=== PATIENT | female | born 1965 | race Caucasian/White ===

== ENCOUNTER 2020-01-01 14:16 | Outpatient (CLI) | payer OTHER, SELFPAY ==
--- NOTE | 2020-01-01 14:25 | XR_ITS ---
WS: [id number] DEXA (DUAL ENERGY X-RAY ABSORPTIOMETRY) Bone mineral density was performed using a [employer] machine. HISTORY: ASYMPTOMATIC POSTMENOPAUSAL STATUS COMPARISON: None available. Lumbar spine BMD (L1-L4): 1.065 g/cm2 T score: -1.0 Z score: 0.1 Total hip BMD: Left: 0.868 g/cm2. T score: -1.1 Z score: -0.3 Right: 0.767 g/cm2. T score: -1.9 Z score: -1.1 10 year probability of a major osteoporotic fracture is 7%. XR/XR DEXA axial skeleton* [id number] IMPRESSION: OSTEOPENIA based upon the WHO classification for females.
== END 2020-01-01 14:17 | disposition home or self-care (01) ==
PROVIDERS: Family Provider Family Medicine; PCP Internal Medicine; Visit Provider Internal Medicine
DX: Z78.0 Asymptomatic menopausal state (principal)
CPT/HCPCS: 77080

== ENCOUNTER 2020-01-02 08:08 | Outpatient (CLI) | payer OTHER, SELFPAY ==
--- NOTE | 2020-01-02 08:12 | MM_ITS ---
WS: [id number] BILATERAL DIGITAL SCREENING MAMMOGRAPHY WITH CAD CLINICAL INFORMATION: SCREENING HISTORY: Screening mammogram. No current complaints. COMPARISON: TECHNIQUE: Bilateral CC and MLO views. FINDINGS: The breasts are composed of heterogeneous fibroglandular density tissue, which can limit the detectio n of small underlying mass lesions. A few stable punctate calcifications. No suspicious mass, asymmet ry, calcifications, or architectural distortion. No evidence of malignancy. MM/[place] [id number] IMPRESSION: BI-RADS: 2-Benign FOLLOW UP: 1 Year Follow-up Recommend return to annual screening mammography.
== END 2020-01-02 08:09 | disposition home or self-care (01) ==
LOC: RADSHAW 08:10
PROVIDERS: Family Provider Family Medicine; PCP Internal Medicine; Visit Provider Internal Medicine
DX: Z12.31 Encounter for screening mammogram for malignant neoplasm of breast (principal)
CPT/HCPCS: 77067

== ENCOUNTER → 2020-04-24 13:33 | Outpatient (BNVA) | payer OTHER, SELFPAY | PROVIDERS: Family Provider Family Medicine; PCP Internal Medicine; Visit Provider Internal Medicine | DX: M32.9 Systemic lupus erythematosus, unspecified (principal); Z79.899 Other long term (current) drug therapy | CPT/HCPCS: 36415; 80053; 81003; 85025; 85651; 86038; 86140; 86160; 99214 ==

== ENCOUNTER → 2020-10-14 09:37 | Outpatient (BNVA) | payer OTHER, SELFPAY | PROVIDERS: Family Provider Family Medicine; PCP Internal Medicine; Visit Provider Internal Medicine | DX: M32.9 Systemic lupus erythematosus, unspecified (principal); Z79.899 Other long term (current) drug therapy | CPT/HCPCS: 99213 ==

== ENCOUNTER 2020-11-01 01:01 | Inpatient (IN) | payer OTHER, SELFPAY ==
[2020-11-01] VITALS (40 sets, daily range): BP systolic 95–136; BP diastolic 55–90; PULSE 64–91; RESP 6–21; TEMP 36.3–36.8; O2SAT 91–98; BMI 21.7
--- NOTE | 2020-11-01 01:18 | XRR_ITS ---
PROCEDURE INFORMATION: Exam: XR Chest, 1 View Exam date and time: 11/01/2020 1:21 AM Age: 55 years old Clinical indication: Chest pain; Type not specified TECHNIQUE: Imaging protocol: XR of the chest Views: 1 view. COMPARISON: No relevant prior studies available. FINDINGS: Lungs: Unremarkable. No consolidation. Pleural space: Unremarkable. No pleural effusion. No pneumothorax. Heart/Mediastinum: Unremarkable. No cardiomegaly. Bones/joints: Unremarkable. XR/XR chest 1V portable [id number] IMPRESSION: Negative for infiltrate.
--- NOTE | 2020-11-01 01:18 | W.ED.CHESTPA ---
HPI - Chest Pain General: Chief Complaint: Chest Pain Stated Complaint: Chest pain,vomiting,loose stool Time Seen by Provider: 11/01/20 01:16 Source: patient Mode of arrival: ambulatory Limitations: no limitations History of Present Illness: HPI narrative: Becky is a very nice 55-year-old female who comes in complaining of chest pain, vomiting and diarrhea. That she abruptly became nauseated and began to throw up and developed chest pain after this. She describes the chest pain as a pressure that does not radiate. She got diaphoretic with this as well. She denies any shortness of breath. Patient states that she has no abdominal pain. She does state that she is had 3 episodes of diarrhea that were nonbloody. She states that she is never had discomfort in her chest like this before and the pain is gradually getting better but it is not gone. Patient denies any history of heart problems, blood clots or other chronic medical problems. When asked about her past medical history she does admit to lupus and possibly Sjogren's syndrome but denies any heart history. She also denies a history of DVT or PE. Associated symptoms: Reports diaphoresis, nausea and vomiting; Deny abdominal pain, dyspnea, fever(s), palpitations or syncope Review of Systems Const: Reports: diaphoresis; Denies: fever(s), chills, body aches, fatigue or malaise Eyes: Denies: change in vision, blurry vision, photophobia, eye discomfort, eye discharge, eye redness or yellow eyes ENMT: Denies: throat pain, odynophagia, hoarseness, swelling of lips/tongue, ear or mastoid pain, ear discharge, change in hearing or nasal discharge Card: Denies: chest pain, palpitations, irregular heart rhythm, edema, lightheadedness, syncope, pre-syncope, dyspnea on exertion or orthopnea Resp: Denies: dyspnea, productive cough, non-productive cough, wheezing, hemoptysis or chest congestion GI: Reports: nausea, vomiting and diarrhea; Denies: abdominal pain, hematemesis, coffee ground emesis, heartburn, constipation, GI cramping, hematochezia or melena : Denies: flank pain, dysuria, urinary frequency, urinary urgency or hematuria Musc: Denies: neck pain, back pain, extremity pain, extremity swelling, joint pain, joint swelling, joint redness, joint warmth or joint stiffness Skin/Breast: Denies: rash, pruritus, erythema, skin pain or skin tenderness Neuro: Denies: headache(s), numbness in extremities, weakness in extremities, sensory changes, lack of coordination, difficulty walking, dizziness, vertigo, confusion, Slurred speech present or seizure-like activity Wily/Lymph: Denies: easy bruising, easy bleeding, petechiae, purpura or enlarged lymph nodes All/Imm: Denies: urticaria, throat swelling, tongue swelling, facial swelling or acute wheezing PFSH ED PFSH: Medical History Sjogrens syndrome SLE (systemic lupus erythematosus related syndrome) SLE (systemic lupus erythematosus) Family History Other CAD (coronary artery disease) Cancer Diabetes Social History Smoking and tobacco status: never smoked Alcohol intake: never History of recent travel: No Physical Exam Const: COMMON NORMALS: no acute distress, patient oriented x3, no limitations and alert GENERAL APPEARANCE: cooperative HENMT: COMMON NORMALS: normocephalic, atraumatic, external ears normal, EAC's normal and Normal external nose present HEAD & SCALP: normal to inspection, normocephalic and atraumatic FACE & SINUS: normal facial exam and face symmetric NOSE: Normal external nose present and Normal nares present EXTERNAL EAR: Yes external ears normal EXTERNAL AUDITORY CANAL: EAC's normal MOUTH: Normal oral and palatal mucosa present, lip normal and tongue normal Eye: COMMON NORMALS: Equal, round and reactive pupils present and conjunctivae normal GENERAL EYE: appearance normal, both eyes and all related structures ALIGNMENT: Yes alignment normal PERIORBITAL: periorbital findings normal EYELID: eyelids normal CONJUNCTIVA: Yes conjunctivae normal SCLERA: sclerae normal PUPIL: Yes Equal, round and reactive pupils present Neck/C-Spine: COMMON NORMALS: full ROM, no lymphadenopathy, supple, no meningeal signs and no JVD GENERAL: Yes normal visual inspection and Yes trachea midline Chest: COMMONS NORMALS: normal inspection of the chest and normal palpation of entire chest wall Resp: COMMON NORMALS: normal respiratory effort, No retractions, No use of accessory muscles and clear to auscultation bilaterally EFFORT & INSPECTION: Yes able to speak in complete sentences and Yes symmetric chest movement AUSCULTATION: clear to auscultation bilaterally, no crackles, no rales, no rhonchi and no wheezes Cardio: COMMON NORMALS: no JVD, regular rate, regular rhythm, S1 normal heart sound present and S2 normal heart sound present RATE: regular rate RHYTHM: regular rhythm HEART SOUNDS: S1 normal heart sound present, S2 normal heart sound present, no click, no gallops, no murmurs and no rubs GI: COMMON NORMALS: Soft to palpation and No hepatosplenomegaly present PALPATION: Yes Soft to palpation, No Tenderness to palpation present (GI), No Guarding due to palpation present (GI), No Rigid due to palpation, Yes No hepatosplenomegaly present, No Hernia present, No Palpable mass present and No Pulsatile mass present : COMMON NORMALS: Yes no CVA tenderness BLADDER/KIDNEY EXAM: Yes no CVA tenderness EXTERNAL FEMALE EXAM: No Hernia present Back/Pelvis: COMMON NORMALS: no CVA tenderness, thoracic and lumbar spine normal to inspection, no thoracic nor lumbar tenderness and thoraco-lumbar ROM normal Extremity: COMMON NORMALS: normal to inspection, full ROM, capillary refill normal, no joint enlargement, no clubbing, cyanosis or edema and no calf tenderness Neuro: COMMON NORMALS: patient oriented x3, CN's II-XII intact bilaterally, moves all extremities, no focal motor deficits and no sensory deficits noted SENSORIUM/ORIENTATION: Yes alert MENINGEAL SIGNS: Yes no meningeal signs SPEECH: speech normal Psych: COMMON NORMALS: mental status grossly normal, Normal thought process present, cooperative, normal affect, speech normal and activity/motor behavior normal SPEECH: Yes normal speech THOUGHT PROCESS: Normal thought process present Skin: COMMON NORMALS: no rashes or lesions noted, turgor normal, no jaundice, no petechiae and no mottling GENERAL SKIN EXAM: no rashes or lesions noted and turgor normal Course ED course: 0238 -patient had complete chest pain relief with 2 sublingual nitroglycerin. We will go and place 1 inch of nitroglycerin paste and obtain a second EKG. Vital Signs: Vital signs: Vital Signs Temperature 97.4 F L 11/01/20 01:05 Pulse Rate 74 11/01/20 01:57 Respiratory Rate 15 11/01/20 02:43 Blood Pressure 113/75 11/01/20 01:57 Pulse Oximetry 98 11/01/20 02:43 MDM - Chest Pain MDM Narrative: Medical decision making narrative: Becky is a very nice 55-year-old female who comes in complaining of chest discomfort. Her CT is negative and her EKG is evolving but there is no definite ST elevation CT. Case reviewed with Dr. Oliveira he agrees to admit for further evaluation and care. Lab Data: Attestation: I reviewed the patient's lab results. Labs: Lab Results 11/01/20 11/01/20 11/01/20 Range/Units 01:40 01:40 01:40 WBC 6.5 (4.0-10.0) 10^3/ uL RBC 3.84 L (4.1-5.3) 10^6/u L Hgb 12.5 (11.5-15.3) g/dL Hct 36.9 L (37.0-47.0) % MCV 96.1 (81-99) fL MCH 32.6 (28.0-34.0) pg MCHC 33.9 (30.0-36.0) g/dL RDW 11.4 L (12.1-15.1) % Plt Count 234 (130-400) 10^3/c mm MPV 9.8 (7.4-10.4) fL Neut % (Auto) 83.1 % Lymph % (Auto) 10.0 % [place] % (Auto) 5.6 % Eos % (Auto) 0.5 % Baso % (Auto) 0.3 % Neut # (Auto) 5.38 (1.8-7.7) 10^3/u L Lymph # (Auto) 0.7 L (0.8-4.8) 10^3/u L [place] # (Auto) 0.4 (0.2-0.9) 10^3/u L Eos # (Auto) 0.0 (0.0-0.8) 10^3/u L Baso # (Auto) 0.0 (0.0-0.1) 10^3/u L Nucleated RBC % (a uto) 0 % Nucleated RBCs # 0.0 /100WBC PT 13.10 (12.1-14.9) SECO NDS INR 0.96 (0.8-1.2) Sodium 136 (136-145) mmol/L Potassium 4.0 (3.5-5.1) mmol/L Chloride 103 (98-107) mmol/L Carbon Dioxide 23 (22-29) mmol/L Anion Gap 14.0 (5-19) BUN 24 H (6-20) mg/dL Creatinine 1.0 H (0.5-0.9) mg/dL GFR Calculation 57.1 L (90-130) mL/min Glucose 148 H (65-115) mg/dL Calculated Osmolal ity 289 (285-295) mOsm/k g Calcium 9.2 (8.5-10.5) mg/dL Total Bilirubin 0.3 (0.15-1.2) mg/dL AST 25 (0-32) U/L ALT 24 (0-33) U/L Alkaline Phosphata se 110 H (35-105) IU/L Troponin T Baselin e (0-10) ng/L Total Protein 7.1 (6.6-8.7) g/dL Albumin 4.2 (3.5-5.2) g/dL Globulin 2.9 (1.3-4.6) g/dL Lipase 27 (13-60) U/L SARS-CoV-2 Ag (Rap id) (Negative) 11/01/20 11/01/20 Range/Units 01:40 02:00 WBC (4.0-10.0) 10^3/ uL RBC (4.1-5.3) 10^6/u L Hgb (11.5-15.3) g/dL Hct (37.0-47.0) % MCV (81-99) fL MCH (28.0-34.0) pg MCHC (30.0-36.0) g/dL RDW (12.1-15.1) % Plt Count (130-400) 10^3/c mm MPV (7.4-10.4) fL Neut % (Auto) % Lymph % (Auto) % [place] % (Auto) % Eos % (Auto) % Baso % (Auto) % Neut # (Auto) (1.8-7.7) 10^3/u L Lymph # (Auto) (0.8-4.8) 10^3/u L [place] # (Auto) (0.2-0.9) 10^3/u L Eos # (Auto) (0.0-0.8) 10^3/u L Baso # (Auto) (0.0-0.1) 10^3/u L Nucleated RBC % (a uto) % Nucleated RBCs # /100WBC PT (12.1-14.9) SECO NDS INR (0.8-1.2) Sodium (136-145) mmol/L Potassium (3.5-5.1) mmol/L Chloride (98-107) mmol/L Carbon Dioxide (22-29) mmol/L Anion Gap (5-19) BUN (6-20) mg/dL Creatinine (0.5-0.9) mg/dL GFR Calculation (90-130) mL/min Glucose (65-115) mg/dL Calculated Osmolal ity (285-295) mOsm/k g Calcium (8.5-10.5) mg/dL Total Bilirubin (0.15-1.2) mg/dL AST (0-32) U/L ALT (0-33) U/L Alkaline Phosphata se (35-105) IU/L Troponin T Baselin e 43 H (0-10) ng/L Total Protein (6.6-8.7) g/dL Albumin (3.5-5.2) g/dL Globulin (1.3-4.6) g/dL Lipase (13-60) U/L SARS-CoV-2 Ag (Rap id) Negative (Negative) Imaging Data^: CXR: Attestation: I personally reviewed and interpreted this imaging study as follows: My impression: No acute cardiopulmonary findings. Other Imaging: Radiologist's impression: [address] [place] [address] CT Scan Report Signed Patient: Becky Nichols Unit #: [id number] : 1965 Age/Sex: 55 / F ADM Date: 11/01/20 Loc: ER Room/Bed: Attending Dr: Ordering Provider/Ordering MD: Kareen Espitia DO Date of Service: 11/01/20 Procedure(s): CT angio chest w abd pel w con Accession Number(s): [id number] Report Number: [id number] PROCEDURE INFORMATION: Exam: CT Angiography Chest With Contrast Exam date and time: 11/01/2020 1:37 AM Age: 55 years old Clinical indication: Abdominal pain; Acute; Chest pain; Type not specified; Additional info: Chest pain / vomiting TECHNIQUE: Imaging protocol: Computed tomographic angiography of the chest with intravenous contrast. 3D rendering (Not supervised by radiologist): MIP and/or 3D reconstructed images were created by the technologist. Radiation optimization: All CT scans at this facility use at least one of these dose optimization techniques: automated exposure control; mA and/or kV adjustment per patient size (includes targeted exams where dose is matched to clinical indication); or iterative reconstruction. Contrast material: OMNI 350; Contrast volume: 95 ml; Contrast route: INTRAVENOUS (IV); COMPARISON: CR XR chest 1V portable [id number] 11/01/2020 1:21 AM RADIATION DOSE METRICS: Total DLP (mGy-cm): 1021.78 FINDINGS: Pulmonary arteries: Normal. No pulmonary emboli. Aorta: Unremarkable. No aortic aneurysm. No aortic dissection. Lungs: Unremarkable. No consolidation. No masses. Pleural space: Unremarkable. No pneumothorax. No pleural effusion. Heart: Unremarkable. No cardiomegaly. No pericardial effusion. Lymph nodes: Unremarkable. No enlarged lymph nodes. Bones/joints: Unremarkable. No acute fracture. Soft tissues: Unremarkable. IMPRESSION: No acute findings. PROCEDURE INFORMATION: Exam: CT Abdomen And Pelvis With Contrast Exam date and time: 11/01/2020 1:37 AM Age: 55 years old Clinical indication: Abdominal pain; Acute; Chest pain; Type not specified; Additional info: Chest pain / vomiting TECHNIQUE: Imaging protocol: Computed tomography of the abdomen and pelvis with intravenous contrast. Radiation optimization: All CT scans at this facility use at least one of these dose optimization techniques: automated exposure control; mA and/or kV adjustment per patient size (includes targeted exams where dose is matched to clinical indication); or iterative reconstruction. Contrast material: OMNI 350; Contrast volume: 95 ml; Contrast route: INTRAVENOUS (IV); COMPARISON: CR XR chest 1V portable [id number] 11/01/2020 1:21 AM RADIATION DOSE METRICS: Total DLP (mGy-cm): 1021.78 FINDINGS: Liver: Normal. No mass. Gallbladder and bile ducts: Normal. No calcified stones. No ductal dilation. Pancreas: Normal. No ductal dilation. Spleen: Normal. No splenomegaly. Adrenal glands: Normal. No mass. Kidneys and ureters: Normal. No hydronephrosis. Stomach and bowel: Unremarkable. No obstruction. No mucosal thickening. Appendix: No evidence of appendicitis. Intraperitoneal space: Unremarkable. No free air. No significant fluid collection. Vasculature: Unremarkable. No abdominal aortic aneurysm. Lymph nodes: Unremarkable. No enlarged lymph nodes. Urinary bladder: Unremarkable as visualized. Reproductive: Status post hysterectomy. Bones/joints: Unremarkable. No acute fracture. Soft tissues: Unremarkable. CT/CT angio chest w abd pel w con IMPRESSION: No acute findings. Radiation Dose CTDIVOL = (mGy): DLP = 1021.78 1021.78 (mGy-cm) Dictated By: Bashir Aleman MD Signed By: Bashir Aleman MD Signed Date/Time: 11/01/20244 DD/ 3 EKG Data^: EKG 1: Attestation: I personally reviewed and interpreted this EKG as follows: EKG interpretation date: 11/01/20 EKG interpretation time: 01:39 Interpretation: Normal sinus rhythm at 70 beats a minute, T wave inversions in V2, V3 V4 and V5. Nonspecific findings in V6 and inferior leads. EKG 2: Attestation: I personally reviewed and interpreted this EKG as follows: EKG interpretation date: 11/01/20 EKG interpretation time: 02:29 Interpretation: Normal sinus rhythm at 81 beats a minute, normal axis, T wave inversions V2 through V6 and ST segment depression with T wave inversion in inferior leads. Discharge Plan Discharge Prescriptions: No Action triamcinolone acetonide 0.1 % cream 1 applic TOPICAL BID RF: 0 ropinirole 0.5 mg tablet 0.5 mg PO DAILY RF: 0 Myrbetriq 25 mg tablet extended release 24 hr 25 mg PO DAILY RF: 0 hydroxychloroquine [Plaquenil] 200 mg tablet 200 mg PO BID Qty: 180 RF: 1 Coding Level of Care Code ED Credit Analysis Manager for Chg Fwd Exam Comprehensive
--- NOTE | 2020-11-01 01:25 | CTR_ITS ---
PROCEDURE INFORMATION: Exam: CT Angiography Chest With Contrast Exam date and time: 11/01/2020 1:37 AM Age: 55 years old Clinical indication: Abdominal pain; Acute; Chest pain; Type not specified; Additional info: Chest pain / vomiting TECHNIQUE: Imaging protocol: Computed tomographic angiography of the chest with intravenous contrast. 3D rendering (Not supervised by radiologist): MIP and/or 3D reconstructed images were created by the technologist. Radiation optimization: All CT scans at this facility use at least one of these dose optimization techniques: automated exposure control; mA and/or kV adjustment per patient size (includes targeted exams where dose is matched to clinical indication); or iterative reconstruction. Contrast material: OMNI 350; Contrast volume: 95 ml; Contrast route: INTRAVENOUS (IV); COMPARISON: CR XR chest 1V portable [id number] 11/01/2020 1:21 AM RADIATION DOSE METRICS: Total DLP (mGy-cm): 1021.78 FINDINGS: Pulmonary arteries: Normal. No pulmonary emboli. Aorta: Unremarkable. No aortic aneurysm. No aortic dissection. Lungs: Unremarkable. No consolidation. No masses. Pleural space: Unremarkable. No pneumothorax. No pleural effusion. Heart: Unremarkable. No cardiomegaly. No pericardial effusion. Lymph nodes: Unremarkable. No enlarged lymph nodes. Bones/joints: Unremarkable. No acute fracture. Soft tissues: Unremarkable. IMPRESSION: No acute findings. PROCEDURE INFORMATION: Exam: CT Abdomen And Pelvis With Contrast Exam date and time: 11/01/2020 1:37 AM Age: 55 years old Clinical indication: Abdominal pain; Acute; Chest pain; Type not specified; Additional info: Chest pain / vomiting TECHNIQUE: Imaging protocol: Computed tomography of the abdomen and pelvis with intravenous contrast. Radiation optimization: All CT scans at this facility use at least one of these dose optimization techniques: automated exposure control; mA and/or kV adjustment per patient size (includes targeted exams where dose is matched to clinical indication); or iterative reconstruction. Contrast material: OMNI 350; Contrast volume: 95 ml; Contrast route: INTRAVENOUS (IV); COMPARISON: CR XR chest 1V portable [id number] 11/01/2020 1:21 AM RADIATION DOSE METRICS: Total DLP (mGy-cm): 1021.78 FINDINGS: Liver: Normal. No mass. Gallbladder and bile ducts: Normal. No calcified stones. No ductal dilation. Pancreas: Normal. No ductal dilation. Spleen: Normal. No splenomegaly. Adrenal glands: Normal. No mass. Kidneys and ureters: Normal. No hydronephrosis. Stomach and bowel: Unremarkable. No obstruction. No mucosal thickening. Appendix: No evidence of appendicitis. Intraperitoneal space: Unremarkable. No free air. No significant fluid collection. Vasculature: Unremarkable. No abdominal aortic aneurysm. Lymph nodes: Unremarkable. No enlarged lymph nodes. Urinary bladder: Unremarkable as visualized. Reproductive: Status post hysterectomy. Bones/joints: Unremarkable. No acute fracture. Soft tissues: Unremarkable. CT/CT angio chest w abd pel w con IMPRESSION: No acute findings. Radiation Dose CTDIVOL = (mGy): DLP = 1021.78~1021.78 (mGy-cm)
[2020-11-01 01:59] LABS: Basophils % 0.3 %; Eosinophils % 0.5 %; Hematocrit 36.9 % (37.0-47.0); Hemoglobin 12.5 g/dL (11.5-15.3); Lymphocytes # 0.7 10^3/uL (0.8-4.8); Mean Corpuscular HGB Conc 33.9 g/dL (30.0-36.0); Mean Corpuscular Hemoglobin 32.6 pg (28.0-34.0); Mean Corpuscular Volume 96.1 fL (81-99); Mean Platelet Volume 9.8 fL (7.4-10.4); Monocytes # 0.4 10^3/uL (0.2-0.9); Monocytes % 5.6 %; Neutrophils # 5.38 10^3/uL (1.8-7.7); Neutrophils % 83.1 %; Nucleated Red Blood Cells % 0 %; Platelet Count 234 10^3/cmm (130-400); Red Blood Count 3.84 10^6/uL (4.1-5.3); Red Cell Distribution Width 11.4 % (12.1-15.1); White Blood Count 6.5 10^3/uL (4.0-10.0)
[2020-11-01 02:04] LABS: INR 0.96 (0.8-1.2)
[2020-11-01 02:13] LABS: Alanine Aminotransferase 24 U/L (0-33); Albumin Level 4.2 g/dL (3.5-5.2); Alkaline Phosphatase 110 IU/L (35-105); Aspartate Amino Transferase 25 U/L (0-32); Blood Urea Nitrogen 24 mg/dL (6-20); Calcium 9.2 mg/dL (8.5-10.5); Carbon Dioxide 23 mmol/L (22-29); Chloride 103 mmol/L (98-107); Globulin 2.9 g/dL (1.3-4.6); Glomerular Filtration Rate 57.1 mL/min (90-130); Glucose 148 mg/dL (65-115); Lipase 27 U/L (13-60); Osmolality Calculated 289 mOsm/kg (285-295); Sodium 136 mmol/L (136-145); Total Bilirubin 0.3 mg/dL (0.15-1.2); Total Protein 7.1 g/dL (6.6-8.7)
[2020-11-01 02:14] LABS: Troponin(5th) Baseline 43 ng/L (0-10)
--- NOTE | 2020-11-01 02:26 | ECG_ITS ---
[facility] Test Date: 2020-11-01 Pat Name: Becky Nichols Department: Room: Gender: Female Retirement Consultant: : 1965 Requested By: Kareen Mart Order Number: [id number] Esquivel MD: Eron Luna M.D. Measurements Intervals Plain Rate: 81 P: 58 WA: 157 QRS: 27 QRSD: 92 T: 193 QT: 420 QTc: 488 Interpretive Statements SINUS RHYTHM MODERATE T-WAVE ABNORMALITY, CONSIDER ANTEROLATERAL ISCHEMIA [-0.1+ mV T WAVE IN V3-V6] MODERATE T-WAVE ABNORMALITY, CONSIDER INFERIOR ISCHEMIA [-0.1+ mV T WAVE IN II/aVF] No previous ECG available for comparison Electronically Signed On 11-01-2020 16:41:56 FELLED SEAM OPERATOR by Eron Luna M.D. [id number] [email or web address]
[2020-11-01] MEDS: iohexol 350 mg/mL 100 mL Btl IV (02:27)
[2020-11-01] MEDS: morphine 4 mg/mL SDV 1 mL IVP (02:43)
[2020-11-01] MEDS: aspirin 81 mg Chew Tablet 324 MG PO (02:44)
[2020-11-01] MEDS: ondansetron 2 mg/ML SDV 2 mL 4 MG IVP ×2 (02:44→09:40)
[2020-11-01] MEDS: sodium chloride 0.9% 500 ML 999 ML IV (02:44)
[2020-11-01 02:45] LABS: SARS Covid-2 Antigen Negative (Negative)
[2020-11-01] MEDS: nitroglycerin 0.4 mg sublingual Tablet SUBLINGUAL (02:45)
[2020-11-01] MEDS: nitroglycerin 1 gm/inch oint Pkt 1 INCH TOPICAL (02:45)
--- NOTE | 2020-11-01 03:15 | P.HP_ITS ---
Providers/Chief Complaint Primary Care Provider: Aurelia Ambrocio MD Chief Complaint: Chest pain,vomiting,loose stool History of Present Illness Becky Nichols is a 55 year old female who has history of Sjogren's syndrome without sicca syndrome, SLE diagnosed 2015 currently on hydroxychloroquine follows with Dr. Barney rheumatology presented with chief complaint of chest discomfort. Patient is stating that she went to bed around 1030 and at 11 PM her chest pain woke her up her chest and was 8/10 substernal she describing as heaviness someone sitting on her chest associated with nausea, vomiting, diaphoresis, she had total 10 episode of emesis, her chest pain was getting worse and at this point she woke her up. Her chest pain persisted until she received 2 sublingual nitroglycerin and loading dose of aspirin in the ER, and total lasted for about 3 hours. On arrival EKG was showing T wave inversion, significant delta troponin she ruled in for NSTEMI she was given therapeutic dose of Lovenox loading dose of aspirin I have requested loading dose of Plavix and started ACS protocol at the time my evaluation she was not complaining of any chest pain she has Nitropaste, current blood pressure systolic 113 millimeter mercury, he also received 4 mg of IV morphine and 1 L normal saline. Review of Systems Const: Denies: fever(s) or body aches Eyes: Denies: change in vision ENMT: Denies: throat pain Card: Reports: chest pain; Denies: syncope, pre-syncope, dyspnea on exertion or orthopnea Resp: Denies: dyspnea GI: Reports: abdominal pain, nausea and vomiting; Denies: diarrhea or constipation : Denies: flank pain Musc: Denies: neck pain Skin/Breast: Denies: lesions Neuro: Denies: headache(s) Psych: Denies: anxiety Endo: Denies: polyuria Wily/Lymph: Denies: easy bruising All/Imm: Denies: urticaria Medications/Allergies Home Medications Medication Instructions Recorded Confirmed Last Taken Type mirabegron 25 mg tablet,extended 25 mg PO DAILY 03/12/20 10/14/20 Unknown History release 24 hr ropinirole 0.5 mg tablet 0.5 mg PO DAILY 03/12/20 10/14/20 Unknown History triamcinolone acetonide 0.1 % 1 applic TOPICAL BID 03/12/20 10/14/20 Unknown History topical cream hydroxychloroquine 200 mg tablet 200 mg PO BID #180 tab 10/14/20 10/14/20 Unknown Rx Allergies Allergy/AdvReac Type Severity Reaction Status Date / Time No Known Allergies Allergy Verified 10/14/20 09:46 PFSH Acute PFSH: Medical History (Updated 11/01/20 @ 04:31 by Raj Robison MD) Sjogrens syndrome SLE (systemic lupus erythematosus related syndrome) SLE (systemic lupus erythematosus) Surgical History (Updated 11/01/20 @ 04:31 by Raj Robison MD) History of cataract extraction History of hysterectomy Family History (Updated 11/01/20 @ 04:31 by Raj Robison MD) Mother CAD (coronary artery disease) [place] at age 50 Other Cancer Diabetes Family history of premature coronary artery disease Social History Smoking and tobacco status: never smoked Alcohol intake: never History of recent travel: No Vitals/I&O/Wt Last Vital Signs Temp 97.4 F L 11/01/20 01:05 Pulse 74 11/01/20 01:57 Resp 15 11/01/20 02:43 BP 113/75 11/01/20 01:57 Pulse Ox 98 11/01/20 02:43 Weight last 48 hrs Weight 61.235 kg Physical Exam Narrative: EXAM NARRATIVE: Middle-age young female, Well-built, well hydrated No active chest pain Has 1 inch Nitropaste current systolic blood pressure 113/70 mmHg No active chest pain or shortness of breath Saturating well on room air S1, S2 no murmur appreciated no signs of heart failure Abdomen soft nontender bowel sound present No STEMI no edema gangrene ulcer No acute respiratory distress no adventitious rhonchi or crackles EOMI, PERRLA No neurological deficit Awake alert oriented x3 GCS 15 Data : 11/01/20 01:40 11/01/20 01:40 A&P Assessment and plan (1) NSTEMI (non-ST elevated myocardial infarction): Status: Acute (2) Unstable angina: Status: Acute Additional A&P Information Non-ST segment elevation [place] Unstable angina with typical features, Significant delta troponin T wave inversion and ST depression consistent with triple-vessel disease pattern, initiate ACS work-up Loading dose of aspirin given I would start her on loading dose of Plavix, lisinopril and Toprol to be initiated Echo in the morning We will consult cardiology, most likely she will need an angiogram I will keep her n.p.o. Start therapeutic dose of Lovenox DVT prophylaxis not needed because her therapeutic dose of Lovenox Keep her on D5 half-normal saline maintenance fluid rate to avoid dehydration as she experienced vomiting x10 Full code Attestations Medical Necessity Statement*: Anticipating stay in the hospital course more than 2 midnights currently ruled in for NSTEMI likely will need angiogram will follow with cardiology recommendations Time Spent in Patient Care: (>than 50% of time spent in counselling and/or direct pt care on unit) . 50mins Coding Level of Care Code Acute Mercury Cracking Tester for Mike Gama Diagnoses NSTEMI (non-ST elevated myocardial infarction) I21.4 Unstable angina I20.0
--- NOTE | 2020-11-01 03:19 | ECG_ITS ---
[facility] Test Date: 2020-11-01 Pat Name: Becky Nichols Department: Room: 105 Gender: Female Mailroom Manager: : 1965 Requested By: Kareen Mart Order Number: [id number] Esquivel MD: Eron Luna M.D. Measurements Intervals [place] Rate: 76 P: 61 [place]: 128 QRS: 12 QRSD: 94 T: 227 QT: 450 QTc: 507 Interpretive Statements SINUS RHYTHM MODERATE T-WAVE ABNORMALITY, CONSIDER ANTEROLATERAL ISCHEMIA [-0.1+ mV T WAVE IN V3-V6] MODERATE T-WAVE ABNORMALITY, CONSIDER INFERIOR ISCHEMIA [-0.1+ mV T WAVE IN II/aVF] Compared to ECG 11/01/2020 02:29:40 No significant changes Electronically Signed On 11-01-2020 16:56:54 CARPET CLEANING TECHNICIAN by Eron Luna M.D. [id number]
[2020-11-01 03:41] LABS: Troponin 5 2HR 155.3 ng/L (0-10); Troponin 5 2HR Delta 112.3 ABS# (0-10)
[2020-11-01] MEDS: enoxaparin 60 mg/0.6 mL Syringe 57 MG SUBCUT (03:50)
--- NOTE | 2020-11-01 07:14 | USCV_ITS ---
Becky Nichols Age: 55 Gender: F : 1965 Exam Date: 11/01/2020 13:05 Ordering Phys: Raj Robison MD Technologist: Ana Balderrama [place] [facility] [facility] [place]ication: NSTEMI BP: 114 / 75 HR: 70 Rhythm: Sinus Technical Quality: Good MEASUREMENTS (Male / Female) Normal Values 2D ECHO LV Diastolic Diameter PLAX 4.2 cm 4.2 - 5.9 / 3.9 - 5.3 cm LV Systolic Diameter PLAX 2.8 cm LV Chamber Size 4.3 cm IVS Diastolic Thickness 0.9 cm 0.6 - 1.0 / 0.6 - 0.9 cm IVS Systolic Thickness 1.3 cm LVPW Diastolic Thickness 1.2 cm 0.6 - 1.0 / 0.6 - 0.9 cm LVPW Systolic Thickness 1.5 cm RV Chamber Size 2.1 cm LVOT Diameter 2.0 cm LV Ejection Fraction 2D Teich 61.7 % LV Ejection Fraction MOD 2C 35.1 % LV Ejection Fraction 2C AL 38.2 % LA Diameter 2.3 cm LA Width 2.7 cm LA Height 3.5 cm RA Width 2.9 cm RA Height 3.1 cm Aorta at Sinotubular Diameter 3.5 cm M-MODE LV Diastolic Diameter MM 4.3 cm 4.2 - 5.9 / 3.9 - 5.3 cm LV Systolic Diameter MM 2.9 cm LV Ejection Fraction MM Teich 59.3 % IVS Diastolic Thickness MM 1.0 cm 0.6 - 1.0 / 0.6 - 0.9 cm IVS Systolic Thickness MM 1.3 cm LVPW Diastolic Thickness MM 1.1 cm 0.6 - 1.0 / 0.6 - 0.9 cm LVPW Systolic Thickness MM 1.8 cm RV Diastolic Diameter MM 1.1 cm Aortic Annulus Diameter 3.9 cm LA Ao Ratio MM 0.6 MV E Point Septal Separation 1.1 cm DOPPLER AV Peak Velocity 107.0 cm/s LVOT Peak Velocity 66.0 cm/s AV Area Cont Eq vti 1.8 cm squared AV Area Cont Eq pk 2.0 cm squared MV Area PHT 4.0 cm squared Mitral E to A Ratio 1.0 MV E' Velocity 46.5 cm/s Mitral E to MV E' Ratio 13.3 Mitral E to LV E' Lateral Ratio 13.1 Mitral E to LV E' Septal Ratio 13.7 TR Peak Velocity 201.6 cm/s TR Peak Gradient 16.3 mmHg TR Mean Velocity 157.2 cm/s TR Mean Gradient 11.0 mmHg TR Velocity Time Integral 58.0 cm TV Peak E Velocity 70.0 cm/s Right Atrial Pressure 3.0 mmHg Pulmonary Artery Systolic Pressu 19.3 mmHg PV Peak Velocity 60.0 cm/s RV Acceleration Time 0.2 s RV Ejection Time 0.4 s RV AcT/ET 0.4 FINDINGS Left Ventricle Normal left ventricular size and wall thickness. LV systolic function moderate to severely reduced with EF of 30 to 35%. Apical, anterior apical and inferior apical akinesis. Basal segments were moving normally. This is consistent with Takotsubo pattern. Normal left ventricular wall thickness. Diastolic function is abnormal. Right Ventricle The right ventricle is normal in size and function. Right Atrium The right atrium is normal in size. Left Atrium The left atrium is normal in size. Mitral Valve Structurally normal mitral valve without significant stenosis or prolapse. There is no mitral regurgitation. Aortic Valve Structurally normal aortic valve without significant sclerosis or stenosis. There is no aortic regurgitation. Tricuspid Valve Structurally normal tricuspid valve without significant stenosis or regurgitation. Insufficient TR jet to calculate RVSP. Pulmonic Valve Structurally normal pulmonic valve without significant stenosis. There is no pulmonic regurgitation. Pericardium Normal pericardium without effusion. Aorta Ascending aorta is mildly dilated CONCLUSIONS LV systolic function is moderate to severely reduced with EF of 30 to 35%. Apical, anterior apical and inferior apical akinesis. Basal segments are moving normally. This is consistent with apical ballooning/Takotsubo cardiomyopathy. RV is normal in size and function. No significant valvular heart disease. Ascending aorta is mildly dilated. No comparison studies are available. Eron Luna MD (Electronically Signed) Final Date: 01 November 2020 15:46 S
--- NOTE | 2020-11-01 07:19 | ECG_ITS ---
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 Measurements Intervals [place] Rate: 66 P: 35 [place]: 144 QRS: 2 QRSD: 85 T: 200 QT: 400 QTc: 421 Interpretive Statements SINUS RHYTHM LOW QRS VOLTAGE IN EXTREMITY LEADS [QRS DEFLECTION < 0.5 mV IN LIMB LEADS] MODERATE T-WAVE ABNORMALITY, CONSIDER ANTEROLATERAL ISCHEMIA [-0.1+ mV T WAVE IN V3-V6] MODERATE T-WAVE ABNORMALITY, CONSIDER INFERIOR ISCHEMIA [-0.1+ mV T WAVE IN II/aVF] Compared to ECG 11/01/2020 03:10:11 Low QRS voltage now present T-wave abnormality still present Possible ischemia still present Electronically Signed On 11-01-2020 16:56:04 RECONSTRUCTIVE DENTIST by Eron Luna M.D. [email or web address].[employer]/store/[id number] f
[2020-11-01] MEDS: clopidogrel 300 mg Tablet PO (07:53)
[2020-11-01] MEDS: dextrose 5%-sod chloride 0.45% 1,000 ML 75 ML IV (07:53)
--- NOTE | 2020-11-01 09:56 | P.CONIM_ITS ---
Providers/Reason For Consult Consulting Physican/Specialty*: Eron Luna MD/ Cardiology Reason for Consult*: NSTEMI Attending Physician: Wolf Smallwood Primary Care Provider: Aurelia Ambrocio MD History of Present Illness History of Present Illness Becky Nichols is a 55 year old female who has history of Sjogren's syndrome without sicca syndrome, SLE diagnosed 2015 currently on hydroxychloroquine follows with Dr. Barney rheumatology presented with chief complaint of chest discomfort. According to patient last night she woke up with severe substernal chest pressure at 11 AM. This lasted about 3 hours and resolved after receiving nitros and aspirin in ER. She has had multiple episodes of nausea and vomiting overnight. According to patient she has been having chest pain recently especially on climbing stairs. There was some radiation to the left arm. Her initial troponin was 43 that increased to 155 with a significant delta. EKG demonstrated T wave inversions in anterior and anterolateral leads. Pain-free right now however continues having on and off nausea. Received aspirin, Plavix and is on heparin drip. Review of Systems Narrative: CONSTITUTIONAL: No fever chills weight loss or gain or night sweats. [] HEENT: Normocephalic, atraumatic.[] RESPIRATORY: No cough, sputum, hemoptysis or wheezing.[] CARDIOVASCULAR: Has chest pain, no PND, orthopnea, lower extremity edema, presyncope or syncope. [] GI: Has nausea vomiting diarrhea. [] FLAVORINGS COMPOUNDER: No numbness, tingling, weakness or loss of function in any part of the body. [] MUSCULOSKELETAL: No knee or joint pain or rashes. [] Meds/Allergies Home Medications and Allergies Home Medications Medication Instructions Recorded Confirmed Last Taken Type mirabegron 25 mg tablet,extended 25 mg PO DAILY 03/12/20 10/14/20 Unknown History release 24 hr ropinirole 0.5 mg tablet 0.5 mg PO DAILY 03/12/20 10/14/20 Unknown History triamcinolone acetonide 0.1 % 1 applic TOPICAL BID 03/12/20 10/14/20 Unknown History topical cream hydroxychloroquine 200 mg tablet 200 mg PO BID #180 tab 10/14/20 10/14/20 Unknown Rx Allergies Allergy/AdvReac Type Severity Reaction Status Date / Time No Known Allergies Allergy Verified 10/14/20 09:46 Current Medications Current Medications Generic Name Dose Route Start Last Admin Trade Name Freq PRN Reason Stop Dose Admin Dextrose/Sodium Chloride 1,000 mls @ 75 mls/hr 11/01/20 07:14 11/01/20 07:53 Dextrose 5%-Sod Chloride 0.45% IV 75 mls/hr .[id number] KEVAN Administration Ondansetron HCl 4 mg 11/01/20 07:14 11/01/20 09:40 Ondansetron 2 Mg/Ml Sdv 2 Ml IVP 4 mg Q6H PRN Administration NAUSEA AND VOMITING PFSH Acute PFSH: Medical History Sjogrens syndrome SLE (systemic lupus erythematosus related syndrome) SLE (systemic lupus erythematosus) Surgical History History of cataract extraction History of hysterectomy Family History Mother CAD (coronary artery disease) [place] at age 50 Other Cancer Diabetes Family history of premature coronary artery disease Social History Smoking and tobacco status: never smoked Alcohol intake: never History of recent travel: No Vitals/I&O/Wt Last Vital Signs Temp 97.8 F 11/01/20 08:00 Pulse 64 11/01/20 08:00 Resp 18 11/01/20 08:00 BP 128/68 11/01/20 08:00 Pulse Ox 98 11/01/20 08:00 10/31/20 11/01/20 11/01/20 22:59 06:59 14:59 Intake Total 500 / 500 0 / 0 Balance 500 / 500 0 / 0 Weight last 48 hrs Weight 135 lb Physical Exam Narrative: EXAM NARRATIVE: GENERAL: Patient is alert, awake and oriented x3. [] NECK: No jugular vein distension. [] HEENT: No cyanosis. No icterus. No pallor. [] HEART: Regular S1 and S2. No murmur, rub or gallop. [] LUNGS: Clear to auscultate bilaterally. [] ABDOMEN: Soft, nontender and nondistended. Positive bowel sounds. No guarding, rebound or tenderness. [] CENTRAL NERVOUS SYSTEM: Grossly nonfocal. [] EXTREMITIES: Lower extremities with no edema bilaterally. Pulses palpable in the lower extremities, both dorsalis pedis and posterior tibial. [] A&P Assessment and plan (1) NSTEMI (non-ST elevated myocardial infarction): Status: Acute (2) SLE (systemic lupus erythematosus related syndrome): Status: Acute Patient has presented with typical chest pain symptoms associated with nausea and vomiting. She has NSTEMI. We will proceed with coronary angiography with possible percutaneous coronary intervention. I had discussed in detail risks and benefits of the procedure. Risks including bleeding, infection, abnormal kidney function, abnormal heart rhythm, heart attack, stroke or have been described. Patient understands the risks and benefits and wants to proceed with the procedure. Order echocardiogram Continue aspirin and Plavix.Continue heparin drip. Thank you for involving us with care of this patient. Please call with questions Coding Level of Care Code Acute General Studies Program Chair for Mike Gama Diagnoses NSTEMI (non-ST elevated myocardial infarction) I21.4 SLE (systemic lupus erythematosus related syndrome) M32.9
--- NOTE | 2020-11-01 10:25 | XACV_ITS ---
Exam Room: [facility] Ht: 168 cm Wt: 61 kg BSA: 1.69 m2 Gender: Female : 1965 Any Known Allergies: No known allergies Exam Priority: Routine Procedure(s): Procedure Description: Diagnostic procedure Procedure Description: Left Heart Catheterization Procedure Description: Left ventriculography Procedure Description: Miscellaneous Procedure Description: ACT Procedure Description: Coronary Angiography Diagnostic Cath Status: Urgent Diagnostic Findings * Left ventriculography shows LV systolic function of 40% with apical hypokinesis and hyperkinetic basal segments. * Left main artery: It arises from left coronary cusp, luminal irregularities are noted. * No significant disease noted in the Left Main, LAD, Circumflex, or RCA coronary arteries. * Coronary angiography shows right dominance. Conclusions 1. Presentation likely secondary to Takotsubo cardiomyopathy. 2. No significant disease noted in the Left Main, LAD, Circumflex, or RCA coronary arteries. 3. Mild left ventricular systolic dysfunction. Ejection fraction of 40%. Recommendations * Transfer back to CSU. * Continue aspirin and Plavix. * Initiate beta-christina and lisinopril. * Cardiology follow-up as outpatient. Diagnostic RX Recommendation: medical therapy and/or counseling Ventriculography Ejection Fraction: 40.0 % Pressures Phase:Rest AO : 108 / 71 ( 86 ) @ 5:02:00 AM 102 / 70 ( 85 ) @ 5:05:00 AM 111 / 63 ( 84 ) @ 5:14:00 AM 109 / 57 ( 82 ) @ 5:14:00 AM 108 / 62 ( 83 ) @ 5:14:00 AM LV : 114 / -4 / @ 5:12:00 AM 114 / -1 / @ 5:14:00 AM 112 / -2 / @ 5:14:00 AM Valves Phase:DefaultPhase AV : 5.0 @ 11:27:37 AM AV Mean Gradient: 17.0 @ 11:27:37 AM 17.0 @ 11:27:37 AM Clinical Evaluation EBL: 5mL-10mL Procedural Details Procedure Consent Obtained. Pre-Procedure Time Out. Identified patient by full name and date of as verbalized by the patient/guarantor. Does the consent match the physician's order: Yes. Accurate & Complete Informed Consent: Yes. Inpatient/Outpatient History & Physical on Chart: Yes. If H&P is completed, is and addenduem needed: No; If yes, is the addendum complete: N/A. Visualize and Verify Site with Patient/Guarantor: N/A. Relevant Radiology Images available: N/A. Pre-op teaching completed and patient verbalized understanding. The risks, benefits, and alternatives of sedation and/or procedure were discussed by physician. The patient agrees to continue. Procedure started. Physician arrived. [facility] Clinical Fraility Score: 2: Well. Jacket Preparer Indications: Other. Chest Pain Symptom Assessment: Typical Angina Symptoms. Cardiovascular Instability: No. Correct patient, site and procedure confirmed by cath team. PERRLA. Strong, equal hand programming development project manager bilaterally. Lungs clear x 5 lobes. IV Site on Arrival: 20 gauge in the right anticubital. IV Fluids: 0.9% NaCl at KVO. 0 mL infused prior to labor and employment paralegal. Pre Procedural Pulses: bilateral radial was 3+. Pre Procedural Pulses: bilateral dorsalis pedis was 2+. Pre Procedural Pulses: bilateral posterior tibial was 2+. Oxygen started at 2liters/min via nasal canula. bilateral groins was prepped with chloroprep then draped in the usual sterile fashion. right radial was prepped with chloroprep then draped in the usual sterile fashion. Baseline sample Acquired. HR: 94 BPM. Equipment: 6F - Radial. Cardiac Cath Pack. ACIST Manifold Kit Model BT 2000. Heparinized Saline (2 units/mL), 1000 mL bag. Physician scrubbed in. Immediate Pre-Procedure Time Out. Correct Patient: Yes; Correct Procedure: Yes; Correct Site: Yes; Correct Patient Position: Yes; Correct Supplies: Yes; Dried Flammable Prep: Yes; Blood Products Available: N/A;. Lidocaine 1% infiltrated to the right radial. Arterial access obtained. A 5 uzbek TIG catheter in over wire. ACT drawn. Results 116 seconds. Therapeutic limits - pre-heparin administration 90-150 seconds and monitoring heparin during a vascular procedure >250 seconds. Multiple views taken of left coronary artery. Catheter redirected to the RCA. Multiple views taken of right coronary artery. Patient's family updated. Catheter removed over the exchange wire. A 5 uzbek Angled Pig catheter in over wire. EDP Sample taken: LV 114/-5,13; HR: 97 BPM; SpO2: 97%. LV gram performed in LUCIA @ 10 mL/second for a total of 30 mL. EDP Sample taken: LV 114/-2,14; HR: 100 BPM; SpO2: 97%. Pullback taken: LV 112/-3,13; AO 111/63(84); Mean: 17mmHg, Peak to Peak: 5mmHg, SEP: 8sec/min; HR: 96 BPM; SpO2: 97%. Catheter removed over the exchange wire. Physician scrubbed out. A TR Band was successful obtaining hemostatsis at the Right Radial artery insertion site. TR band placed. Hemostasis obtained. Post Procedure: Pulses reassessed and unchanged. PERRLA. Strong, equal hand programming development project manager bilaterally. No VTE prophylaxis required. Medication's Wasted: Lidocaine 1% = 18 mL. Medication's Wasted: Heparin = 3000 units. Medication's Wasted: Nitro = 49.8 mg. Total IV fluids: 50 mL. Medication's Wasted: Other = fentanyl 50 mcg. Contrast type used: Omnipaque 300 mgI/mL, 500 mL bottle. Post-op diagnosis: takutsubo. Complications: none. Estimated blood loss: 5mL-10mL. Procedure completed. Patient transferred by wheelchair to 1st floor. Vital chart was stopped. Access Site Site: Right Radial artery Sheath Size: 6 Fr Hemostasis Method: TR Band Hemostasis Success: Successful Procedure Medications Start: 10:44 AM Stop: 10:44 AM Medication: Versed Amount: 1 mg Route: I.V. Start: 10:44 AM Stop: 10:44 AM Medication: Fentanyl Amount: 25 mcg Route: I.V. Start: 10:48 AM Stop: 10:48 AM Medication: Fentanyl Amount: 25 mcg Route: I.V. Start: 10:52 AM Stop: 10:52 AM Medication: Versed Amount: 1 mg Route: I.V. Start: 10:59 AM Stop: 10:59 AM Medication: Nitrogylcerin Amount: 200 mcg Route: I.A. Start: 11:03 AM Stop: 11:03 AM Medication: Heparin Amount: 3000 units Route: I.V. I, the attending physician, have reviewed and verified all procedure medications. Yes, all medications given per verbal order History/Risk Factors Hypertension: No Dyslipidemia: No Peripheral Arterial Disease (PAD): No Myocardial Infarction (MA): No Obesity: No Renal Disease: No Tobacco Use: Never Prior Interventions PCI: No CABG: No Valve Surgery: No Report Signatures Finalized by Eron Luna MD on 11/07/2020 05:18 PM
--- NOTE | 2020-11-01 10:40 | PC.NURSE ---
Patient taken to lab manager.
--- NOTE | 2020-11-01 10:48 | W.PM.OPSUD ---
Surgery/Procedure H&P Update DATE OF PROCEDURE: November 01, 2020 DATE H&P PERFORMED: 11/01/20 H&P UPDATE INFORMATION: I have reviewed H&P completed within last 30 days, I have examined patient prior to procedure and No changes to prior documentation CHANGES TO PREVIOUS DOCUMENTATION: No changes to prior documentation. PREOP DIAGNOSIS: Non-ST elevation MT PRIMARY INDICATION FOR PROCEDURE: Non-ST elevation MT PLANNED PROCEDURE: Coronary angiography/left heart cath/possible percutaneous coronary intervention PATIENT REASSESSED PRIOR TO SEDATION, WITH NO CHANGE NOTED: Yes PHYSICAL EXAM: alert, oriented x 3 and clear to auscultation bilaterally AIRWAY EVAL/ANESTHESIA PLAN: ASA II, Risks, benefits & alternatives of sedation and/or procedure discussed and Patient agrees to continue as planned
--- NOTE | 2020-11-01 11:54 | PM.PN ---
Subjective Subjective: Interval history: No chest pain this morning. Dry heaving, and small amount of emesis. No diarrhea. Had some nasal congestion which she thought was caused may be by having to wear a mask. It is chilly in her room. Denies any fever. Denies shortness of breath or cough. Vitals/I&O/Wt Last Vital Signs Temp 98.3 F 11/01/20 10:00 Pulse 83 11/01/20 10:00 Resp 14 11/01/20 10:00 BP 123/81 11/01/20 10:00 Pulse Ox 94 11/01/20 10:00 10/31/20 11/01/20 11/01/20 22:59 06:59 14:59 Intake Total 500 / 500 0 / 0 Balance 500 / 500 0 / 0 Weight last 48 hrs Weight 61.235 kg Physical Exam Const: COMMON NORMALS: no acute distress and patient oriented x3 HENMT: COMMON NORMALS: oropharynx normal Neck/C-Spine: COMMON NORMALS: no JVD Resp: COMMON NORMALS: normal respiratory effort and clear to auscultation bilaterally AUSCULTATION: clear to auscultation bilaterally Cardio: COMMON NORMALS: no JVD, regular rhythm, S1 normal heart sound present, S2 normal heart sound present and No murmurs present (Cardio) RHYTHM: regular rhythm HEART SOUNDS: S1 normal heart sound present and S2 normal heart sound present GI: COMMON NORMALS: Normal to inspection, nondistended, normoactive bowel sounds present, Soft to palpation and non-tender PALPATION: Yes Soft to palpation Extremity: COMMON NORMALS: no joint enlargement and no pedal edema Neuro: COMMON NORMALS: patient oriented x3 and moves all extremities Skin: COMMON NORMALS: no rashes or lesions noted GENERAL SKIN EXAM: no rashes or lesions noted Data : 11/01/20 01:40 11/01/20 01:40 A&P Assessment and plan (1) NSTEMI (non-ST elevated myocardial infarction): With significant troponin elevation, 43 baseline, up to 155 to 2 hours. Was started on aspirin, anticoagulation, Beta-christina, statin. Underwent assessment by coronary angiography. No significant obstruction noted. Left ventriculogram not very good quality, but perhaps some minimal apical ballooning to suggest stress cardiomyopathy per discussion with cardiology. Pending closer assessment by TTE. Will follow up. Hold hydroxychloroquine for now. Cardiac monitoring. Status: Acute (2) Unstable angina: Status: Acute (3) SLE (systemic lupus erythematosus related syndrome): Hold hydroxychloroquine for now given concern for cardiomyopathy, possible myocarditis. Status: Acute Additional A&P Information Vomiting: CLD trial. PPI. Zofran as needed. IV hydration. Attestations Medical Necessity Statement*: Continue admission for additional assessment of troponin abnormality, possible cardiomyopathy, possible myocarditis. Coding Level of Care Code Acute Medical Records Secretary for [facility] Fwd Exam Comprehensive Diagnoses NSTEMI (non-ST elevated myocardial infarction) I21.4 Unstable angina I20.0 SLE (systemic lupus erythematosus related syndrome) M32.9
[2020-11-01 12:35] LABS: Troponin 5 6HR 182.4 ng/L (0-10); Troponin 5 6HR Delta 139.4 ng/L (0-12)
[2020-11-01] MEDS: heparin 5,000 unit/mL INJ 1 mL 5000 UNIT SUBCUT (17:57)
--- NOTE | 2020-11-01 20:14 | PC.NURSE ---
PT IS RESTING IN BED. DRESSING IS C/D/I. PULSE IS PALPABLE DISTAL OF SITE. PT DENIES PAIN. AT THIS TIME. WILL CONTINUE TO MONITOR.
[2020-11-02 00:27] VITALS: PULSE 71; O2SAT 93
[2020-11-02] MEDS: heparin 5,000 unit/mL INJ 1 mL 5000 UNIT SUBCUT ×2 (02:41→09:22)
[2020-11-02] MEDS: ondansetron 2 mg/ML SDV 2 mL 4 MG IVP (02:57)
--- NOTE | 2020-11-02 04:34 | PC.NURSE ---
PT IS RESTING IN BED. PT DENIES PAIN. PT C/O UPSET STOMACH. ZOFRAN WAS GIVEN IVP BY PHARMACIST NURSE. WILL CONTINUE TO MONITOR.
[2020-11-02 04:44] LABS: Basophils % 0.2 %; Eosinophils % 0.2 %; Hematocrit 36.7 % (37.0-47.0); Hemoglobin 12.1 g/dL (11.5-15.3); Lymphocytes # 0.7 10^3/uL (0.8-4.8); Lymphocytes % 16.7 %; Mean Corpuscular Volume 97.1 fL (81-99); Mean Platelet Volume 10.2 fL (7.4-10.4); Monocytes # 0.3 10^3/uL (0.2-0.9); Monocytes % 7.9 %; Neutrophils # 3.12 10^3/uL (1.8-7.7); Neutrophils % 74.8 %; Nucleated Red Blood Cells % 0 %; Platelet Count 210 10^3/cmm (130-400); Red Blood Count 3.78 10^6/uL (4.1-5.3); Red Cell Distribution Width 11.4 % (12.1-15.1); White Blood Count 4.2 10^3/uL (4.0-10.0)
[2020-11-02 05:12] LABS: Anion Gap 12.8 (5-19); Blood Urea Nitrogen 13 mg/dL (6-20); Calcium 8.8 mg/dL (8.5-10.5); Carbon Dioxide 24 mmol/L (22-29); Chloride 101 mmol/L (98-107); Glomerular Filtration Rate 57.1 mL/min (90-130); Glucose 113 mg/dL (65-115); Osmolality Calculated 279 mOsm/kg (285-295); Potassium 3.8 mmol/L (3.5-5.1); Sodium 134 mmol/L (136-145)
[2020-11-02 06:00] VITALS: PULSE 75
[2020-11-02] MEDS: triamcinolone 0.1% cream 15 gm 1 APPLIC TOPICAL (06:37)
[2020-11-02 08:02] VITALS: BP 116/73; PULSE 82; RESP 18; TEMP 36.8; O2SAT 98
[2020-11-02] MEDS: aspirin 81 mg EC Tablet PO (09:22)
--- NOTE | 2020-11-02 10:22 | PM.PN ---
Subjective Subjective: Interval history: Patient underwent coronary angiography yesterday. No significant coronary artery disease is noted. LV ventriculography showed hyperkinetic basal segments with apical akinesis. Echocardiogram shows apical akinesis consistent with Takotsubo cardiomyopathy. Patient is feeling well. She denies any complaints of chest pain shortness of breath or palpitations. She had one episode of nausea last night however did not throw up. Vitals/I&O/Wt Last Vital Signs Temp 98.3 F 11/02/20 08:02 Pulse 82 11/02/20 08:02 Resp 18 11/02/20 08:02 BP 116/73 11/02/20 08:02 Pulse Ox 98 11/02/20 08:02 11/01/20 11/02/20 11/02/20 22:59 06:59 14:59 Intake Total 480 / 480 220 / 700 360 / 360 Balance 480 / 480 220 / 700 360 / 360 Weight last 48 hrs Weight 135 lb Physical Exam Narrative: EXAM NARRATIVE: GENERAL: Patient is alert, awake and oriented x3. [] NECK: No jugular vein distension. [] HEENT: No cyanosis. No icterus. No pallor. [] HEART: Regular S1 and S2. No murmur, rub or gallop. [] LUNGS: Clear to auscultate bilaterally. [] ABDOMEN: Soft, nontender and nondistended. Positive bowel sounds. No guarding, rebound or tenderness. [] CENTRAL NERVOUS SYSTEM: Grossly nonfocal. [] EXTREMITIES: Lower extremities with no edema bilaterally. Pulses palpable in the lower extremities, both dorsalis pedis and posterior tibial. [] Data : 11/02/20 03:48 11/02/20 03:48 A&P Assessment and plan (1) Acute HFrEF (heart failure with reduced ejection fraction): Status: Acute (2) SLE (systemic lupus erythematosus related syndrome): Status: Acute (3) Stress-induced cardiomyopathy: Status: Acute Patient's presentation with chest pain, EKG changes and troponin elevation along with normal coronary arteries and apical ballooning is consistent with stress cardiomyopathy. She is doing well right now. Continue aspirin and Plavix Continue metoprolol and lisinopril Clinically patient appears euvolemic at this time. I have informed patient that if he develops shortness of breath to inform our office for initiation of diuretic therapy. Patient is stable to be discharged from cardiology standpoint. Outpatient follow-up in cardiology office. Attestations Medical Necessity Statement*: Care expected to cross 2 midnights. 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
--- NOTE | 2020-11-02 12:07 | PC.NURSE ---
PATIENT HAS BEEN UP AMBULATING IN THE HALLWAY. NO COMPLAINTS OR SHORTNESS OF BREATH
[2020-11-02 12:22] VITALS: BP 115/73; PULSE 89; RESP 18; TEMP 36.4; O2SAT 96
--- NOTE | 2020-11-02 13:10 | PM.DCS ---
Discharge Providers Date of Admission: 11/01/20 03:17 Date of Discharge: November 02, 2020 Attending Provider at Admission: Raj Robison MD Attending Provider at Discharge: Jojo Watson MD Primary Care Provider: Aurelia Ambrocio MD Diagnoses at Discharge Discharge Diagnosis (1) Acute HFrEF (heart failure with reduced ejection fraction): Status: Acute (2) SLE (systemic lupus erythematosus related syndrome): Status: Acute (3) Stress-induced cardiomyopathy: Status: Acute Reason for Visit Reason for Visit: Chest pain,vomiting,loose stool Hospital Course Hospital Course Becky Nichols is a 55 year old female who has history of Sjogren's syndrome without sicca syndrome, SLE diagnosed 2015 currently on hydroxychloroquine follows with Dr. Barney rheumatology presented with chief complaint of chest discomfort, nausea and vomiting.On arrival EKG was showing T wave inversion, significant delta troponin, overall concern for NSTEMI. She underwent left heart cath yesterday which showed no gross coronary artery disease. Echocardiogram revealed apical ballooning, which in the presence of clean coronaries is indicative of stress cardiomyopathy. Patient is symptomatically improved today. Her nausea, dry heaving, chest pain and dyspnea on subsided at this time. Is clinically euvolemic. Overall stable to be discharged today on aspirin Plavix, metoprolol 12.5 mg p.o. daily and lisinopril 5 mg p.o. daily per cardiology recommendations. Follow-up with cardiology in the next 7 to 10 days. Discharge Data Data Completed and Pending: Completed Studies During Hospitalization Category Date Time Status CT angio chest w abd pel w con Stat Cat Scan 11/01/20 01:25 Completed XR chest 1V shailesh ble [id number] Stat Exams 11/01/20 01:18 Completed CV echo complete* [id number] Routine Ultrasound 11/01/20 07:14 Completed Pending at discharge Category Date Time Status MERCHANDISING COORDINATOR request for service Routin e Exams 11/01/20 10:25 Ordered Labs from last 24 hours 11/02/20 11/02/20 03:48 03:48 WBC 4.2 RBC 3.78 L Hgb 12.1 Hct 36.7 L MCV 97.1 MCH 32.0 MCHC 33.0 RDW 11.4 L Plt Count 210 MPV 10.2 Neut % (Auto) 74.8 Lymph % (Auto) 16.7 [place] % (Auto) 7.9 Eos % (Auto) 0.2 Baso % (Auto) 0.2 Neut # (Auto) 3.12 Lymph # (Auto) 0.7 L [place] # (Auto) 0.3 Eos # (Auto) 0.0 Baso # (Auto) 0.0 Nucleated RBC % (a uto) 0 Nucleated RBCs # 0.0 Sodium 134 L Potassium 3.8 Chloride 101 Carbon Dioxide 24 Anion Gap 12.8 BUN 13 Creatinine 1.0 H GFR Calculation 57.1 L Glucose 113 Calculated Osmolal ity 279 L Calcium 8.8 Vitals: Last Vital Signs Temp 97.5 F L 11/02/20 12:22 Pulse 89 11/02/20 12:22 Resp 18 11/02/20 12:22 BP 115/73 11/02/20 12:22 Pulse Ox 96 11/02/20 12:22 Discharge Plan Discharge Patient Disposition: Home Condition: Stable Prescriptions: New aspirin 81 mg Tablet,Delayed Release (Dr/Ec) 81 mg PO DAILY 30 Days Qty: 30 RF: 0 clopidogrel 75 mg Tablet 75 mg PO DAILY 30 Days Qty: 30 RF: 0 lisinopril 5 mg Tablet 5 mg PO DAILY 30 Days Qty: 30 RF: 0 metoprolol succinate 25 mg Tablet Extended Release 24 Hr 12.5 mg PO DAILY 30 Days Qty: 30 RF: 0 Continued triamcinolone acetonide 0.1 % cream 1 applic TOPICAL DAILY@07 RF: 0 ropinirole 0.5 mg tablet 0.5 mg PO BEDTIME PRN (Reason: Restless Leg(S)) RF: 0 Myrbetriq 25 mg tablet extended release 24 hr 25 mg PO DAILY@07 RF: 0 hydroxychloroquine 200 mg Tablet 400 mg PO DAILY@07 RF: 0 Discharge Orders: Discharge Order (Routine); Ordered 11/02/20 Ordered By: Jojo Watson Referrals: Eron Luna M.D [Physician] - 7-10 days Discharge Diet: Usual diet Discharge Activity: Increase activity as tolerated Patient Instructions: Metoprolol (By mouth), Lisinopril (By mouth), Aspirin (By mouth), Clopidogrel (By mouth), Post Angiogram Home Care Instructions Activity Restrictions/Additional Instructions: In case you experience shortness of breath, call epoxy coatings installer's office or present to ER. 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
[2020-11-02 13:30] VITALS: BP 115/73; PULSE 89; RESP 18; TEMP 36.4; O2SAT 96
[2020-11-02] MEDS: metoprolol succinate ER (24 HR) 25 mg Tablet 12.5 MG PO (13:33)
== END 2020-11-02 14:16 | disposition home or self-care (01) | DRG 280 ==
LOC: ER 03:25 → CSU 06:36
PROVIDERS: Internal Medicine; Admitting Provider Internal Medicine; Emergency Provider Emergency Medicine; PCP Internal Medicine; Visit Provider Student in an Organized Health Care Education/Training Program
PROC: 4A023N7 Measurement of Cardiac Sampling and Pressure, Left Heart, Percutaneous Approach (ICD-10-PCS; principal; 2020-11-01 10:30)
DX: I21.4 Non-ST elevation (NSTEMI) myocardial infarction (principal); I50.31 Acute diastolic (congestive) heart failure; I51.81 Takotsubo syndrome; M35.00 Sjogren syndrome, unspecified; M32.9 Systemic lupus erythematosus, unspecified; Z79.899 Other long term (current) drug therapy
CPT/HCPCS: 12345; 36415; 71045; 71275; 74177; 80048; 80053; 83690; 84484; 85025; 85347; 85610; 87426; 93005; 93306; 93452; 96372; 99283; C1769; C1887; C1894; J1644; J1650; J2250; J2270; J2405; J3010; J3490; J7040; J7799; Q9967

== ENCOUNTER 2020-11-03 19:41 | Emergency (ER) | payer OTHER, SELFPAY ==
--- NOTE | 2020-11-03 19:43 | ECG_ITS ---
[facility] Test Date: 2020-11-03 Pat Name: Becky Nichols Department: Room: Gender: Female Sieve Maker: : 1965 Requested By: Angela Flores Order Number: [id number] Alvin MD: Kody Jett M.D. Measurements Intervals [place] Rate: 87 P: 62 CO: 143 QRS: -29 QRSD: 87 T: 232 QT: 404 QTc: 487 Interpretive Statements SINUS RHYTHM POSSIBLE LEFT ATRIAL ENLARGEMENT [-0.1mV P WAVE IN V1/V2] SEPTAL MYOCARDIAL INFARCTION , PROBABLY OLD [40+ ms Q WAVE IN V1/V2] MARKED T-WAVE ABNORMALITY, CONSIDER ANTEROLATERAL ISCHEMIA [-0.5+ mV T WAVE IN I/aVL/V3-V6] MODERATE T-WAVE ABNORMALITY, CONSIDER INFERIOR ISCHEMIA [-0.1+ mV T WAVE IN II/aVF] Compared to ECG 11/01/2020 07:58:05 Myocardial infarct finding now present T-wave abnormality still present Possible ischemia still present Electronically Signed On 11-04-2020 23:42:57 CROSSWORD PUZZLE MAKER by Kody Jett M.D. [id number]
--- NOTE | 2020-11-03 19:43 | XR_ITS ---
WS: [id number] Exam: XR chest 1V portable [id number] Date/Time of Exam: 11/03/2020 7:52 PM Reason For Exam: cp Comparison 11/01/2020. The lungs are clear and fully inflated. Normal cardiomediastinal structures and bony elements. No ple ural effusion. XR/XR chest 1V portable [id number] IMPRESSION: 1. No acute cardiopulmonary finding.
[2020-11-03 19:44] VITALS: BP 129/83; PULSE 90; RESP 18; TEMP 36.6; O2SAT 98; BMI 21.7
--- NOTE | 2020-11-03 21:43 | ECG_ITS ---
[facility] Test Date: 2020-11-04 Pat Name: Becky Nichols Department: Room: Gender: Female Locks Tender: : 1965 Requested By: Angela Flores Order Number: [id number] Alvin MD: Kody Jett M.D. Measurements Intervals [place] Rate: 68 P: 52 SC: 140 QRS: -22 QRSD: 87 T: 218 QT: 472 QTc: 502 Interpretive Statements SINUS RHYTHM SEPTAL MYOCARDIAL INFARCTION , PROBABLY OLD [40+ ms Q WAVE IN V1/V2] MARKED T-WAVE ABNORMALITY, CONSIDER ANTEROLATERAL ISCHEMIA [-0.5+ mV T WAVE IN I/aVL/V3-V6] MODERATE T-WAVE ABNORMALITY, CONSIDER INFERIOR ISCHEMIA [-0.1+ mV T WAVE IN II/aVF] Compared to ECG 11/03/2020 19:55:16 No significant changes Electronically Signed On 11-04-2020 23:57:43 SHEAR SETTER by Kody Jett M.D. [id number]
[2020-11-03 23:12] VITALS: BP 133/84; PULSE 71; RESP 11; O2SAT 98
--- NOTE | 2020-11-03 23:14 | ED_ITS ---
HPI - Chest Pain General: Chief Complaint: Chest Pain Stated Complaint: cp Time Seen by Provider: 11/03/20 22:57 Source: patient Mode of arrival: ambulatory Limitations: no limitations History of Present Illness: HPI narrative: Becky is a 55-year-old female who has been having chest pain over the last 6 to 7 days. Patient was admitted earlier this week and had a stress test couple days ago that showed Tocco Subu's. Did not show any signs of acute coronary syndrome. Patient states she started having chest pain again tonight. She denies any worsening improving factors. States pain is currently a 4 out of 10. Denies any shortness of breath. Denies any vomiting or diarrhea. Associated symptoms: Deny abdominal pain, dyspnea, fever(s), nausea or vomiting Review of Systems Const: Denies: fever(s), chills, body aches or change in appetite Eyes: Denies: blurry vision or eye discomfort ENMT: Denies: throat pain or dental pain Card: Reports: chest pain Resp: Denies: dyspnea GI: Denies: abdominal pain, nausea, vomiting or diarrhea : Denies: dysuria Musc: Denies: neck pain or back pain Skin/Breast: Denies: rash Neuro: Denies: headache(s) Psych: Denies: depression Wily/Lymph: Denies: easy bruising All/Imm: Denies: urticaria PFSH ED PFSH: Medical History Sjogrens syndrome SLE (systemic lupus erythematosus related syndrome) SLE (systemic lupus erythematosus) Surgical History History of cataract extraction History of hysterectomy Family History Mother CAD (coronary artery disease) CA at age 50 Other Cancer Diabetes Family history of premature coronary artery disease Social History Smoking and tobacco status: never smoked Alcohol intake: never History of recent travel: No Physical Exam Const: COMMON NORMALS: no acute distress, patient oriented x3 and healthy appearing HENMT: COMMON NORMALS: normocephalic and atraumatic HEAD & SCALP: normocephalic and atraumatic Eye: COMMON NORMALS: Equal, round and reactive pupils present and EOMs intact bilaterally PUPIL: Yes Equal, round and reactive pupils present Neck/C-Spine: COMMON NORMALS: full ROM and supple Chest: COMMONS NORMALS: normal inspection of the chest and normal palpation of entire chest wall Resp: COMMON NORMALS: normal respiratory effort, No retractions, No use of accessory muscles and clear to auscultation bilaterally AUSCULTATION: clear to auscultation bilaterally Cardio: COMMON NORMALS: regular rate, regular rhythm and No murmurs present ( Cardio) RATE: regular rate RHYTHM: regular rhythm GI: COMMON NORMALS: Normal to inspection, nondistended, normoactive bowel sounds present, Soft to palpation, non-tender and no masses PALPATION: Yes Soft to palpation Extremity: COMMON NORMALS: normal to inspection and full ROM Neuro: COMMON NORMALS: patient oriented x3, moves all extremities and no focal motor deficits Psych: COMMON NORMALS: mental status grossly normal, Normal thought process present and cooperative THOUGHT PROCESS: Normal thought process present Skin: COMMON NORMALS: no rashes or lesions noted and no wounds GENERAL SKIN EXAM: no rashes or lesions noted Course Vital Signs: Vital signs: Vital Signs Temperature 97.8 F 11/03/20 19:44 Pulse Rate 67 11/04/20 01:45 Respiratory Rate 13 11/04/20 01:45 Blood Pressure 107/69 11/04/20 01:45 Pulse Oximetry 96 11/04/20 01:45 MDM - Chest Pain MDM Narrative: Medical decision making narrative: Becky presents here with chest pain. Initial repeat troponin here negative she has no signs of acute coronary syndrome. Patient did have a recent cath that showed no coronary findings. Patient is stable for discharge and is to follow-up with cardiology as scheduled. She is to return if worsening. She understands and agrees to plan. Lab Data: Labs: Lab Results 11/03/20 11/03/20 11/03/20 Range/Units 23:15 23:15 23:15 WBC 4.4 (4.0-10.0) 10^3/ uL RBC 4.17 (4.1-5.3) 10^6/u L Hgb 13.6 (11.5-15.3) g/dL Hct 41.4 (37.0-47.0) % MCV 99.3 H (81-99) fL MCH 32.6 (28.0-34.0) pg MCHC 32.9 (30.0-36.0) g/dL RDW 11.4 L (12.1-15.1) % Plt Count 246 (130-400) 10^3/c mm MPV 9.8 (7.4-10.4) fL Neut % (Auto) 72.3 % Lymph % (Auto) 17.7 % [place] % (Auto) 9.1 % Eos % (Auto) 0.5 % Baso % (Auto) 0.2 % Neut # (Auto) 3.19 (1.8-7.7) 10^3/u L Lymph # (Auto) 0.8 (0.8-4.8) 10^3/u L [place] # (Auto) 0.4 (0.2-0.9) 10^3/u L Eos # (Auto) 0.0 (0.0-0.8) 10^3/u L Baso # (Auto) 0.0 (0.0-0.1) 10^3/u L Nucleated RBC % (a uto) 0 % Nucleated RBCs # 0.0 /100WBC Sodium 137 (136-145) mmol/L Potassium 4.3 (3.5-5.1) mmol/L Chloride 103 (98-107) mmol/L Carbon Dioxide 25 (22-29) mmol/L Anion Gap 13.3 (5-19) BUN 18 (6-20) mg/dL Creatinine 0.8 (0.5-0.9) mg/dL GFR Calculation 73.9 L (90-130) mL/min Glucose 126 H (65-115) mg/dL Calculated Osmolal ity 287 (285-295) mOsm/k g Calcium 9.5 (8.5-10.5) mg/dL Total Bilirubin 0.3 (0.15-1.2) mg/dL AST 31 (0-32) U/L ALT 31 (0-33) U/L Alkaline Phosphata se 112 H (35-105) IU/L Troponin T Baselin e 33 H (0-10) ng/L Troponin T 120 Min jackson (0-10) ng/L Delta Troponin T (0-10) ABS# Troponin T Hi Sens 6Hr Troponin T Hi Sens 6Hr Delta NT-Pro-B Natriuret Pep 3433 H (0-125) pg/mL Total Protein 7.0 (6.6-8.7) g/dL Albumin 4.1 (3.5-5.2) g/dL Globulin 2.9 (1.3-4.6) g/dL 11/04/20 11/04/20 Range/Units 01:01 01:12 WBC (4.0-10.0) 10^3/ uL RBC (4.1-5.3) 10^6/u L Hgb (11.5-15.3) g/dL Hct (37.0-47.0) % MCV (81-99) fL MCH (28.0-34.0) pg MCHC (30.0-36.0) g/dL RDW (12.1-15.1) % Plt Count (130-400) 10^3/c mm MPV (7.4-10.4) fL Neut % (Auto) % Lymph % (Auto) % [place] % (Auto) % Eos % (Auto) % Baso % (Auto) % Neut # (Auto) (1.8-7.7) 10^3/u L Lymph # (Auto) (0.8-4.8) 10^3/u L [place] # (Auto) (0.2-0.9) 10^3/u L Eos # (Auto) (0.0-0.8) 10^3/u L Baso # (Auto) (0.0-0.1) 10^3/u L Nucleated RBC % (a uto) % Nucleated RBCs # /100WBC Sodium (136-145) mmol/L Potassium (3.5-5.1) mmol/L Chloride (98-107) mmol/L Carbon Dioxide (22-29) mmol/L Anion Gap (5-19) BUN (6-20) mg/dL Creatinine (0.5-0.9) mg/dL GFR Calculation (90-130) mL/min Glucose (65-115) mg/dL Calculated Osmolal ity (285-295) mOsm/k g Calcium (8.5-10.5) mg/dL Total Bilirubin (0.15-1.2) mg/dL AST (0-32) U/L ALT (0-33) U/L Alkaline Phosphata se (35-105) IU/L Troponin T Baselin e (0-10) ng/L Troponin T 120 Min jackson 31.71 H (0-10) ng/L Delta Troponin T -1.29 L (0-10) ABS# Troponin T Hi Sens 6Hr Cancelled Troponin T Hi Sens 6Hr Delta Cancelled NT-Pro-B Natriuret Pep (0-125) pg/mL Total Protein (6.6-8.7) g/dL Albumin (3.5-5.2) g/dL Globulin (1.3-4.6) g/dL Imaging Data^: CXR: Attestation: I personally reviewed and interpreted this imaging study as follows: My impression: no acute abnormality EKG Data^: EKG 1: Attestation: I personally reviewed and interpreted this EKG as follows: EKG interpretation date: 11/03/20 EKG interpretation time: 19:55 Interpretation: nsr hr [address] elevation t wave inversion v3-v6 qrs 87 qtc 448 no change from previus ekg EKG 2: Attestation: I personally reviewed and interpreted this EKG as follows: EKG interpretation date: 11/04/20 EKG interpretation time: 00:02 Interpretation: nsr hr [address] or t wave abnormalities no stemi t wave inversion in v2-v6 no change from previous Discharge Plan Discharge Patient Disposition: Home Clinical Impression: Chest pain Qualifiers: Chest pain type: unspecified Qualified Code(s): R07.9 - Chest pain, unspecified Condition: Stable Prescriptions: No Action triamcinolone acetonide 0.1 % cream 1 applic TOPICAL DAILY@07 RF: 0 ropinirole 0.5 mg tablet 0.5 mg PO BEDTIME PRN (Reason: Restless Leg(S)) RF: 0 Myrbetriq 25 mg tablet extended release 24 hr 25 mg PO DAILY@07 RF: 0 hydroxychloroquine 200 mg Tablet 400 mg PO DAILY@07 RF: 0 aspirin 81 mg Tablet,Delayed Release (Dr/Ec) 81 mg PO DAILY 30 Days Qty: 30 RF: 0 clopidogrel 75 mg Tablet 75 mg PO DAILY 30 Days Qty: 30 RF: 0 lisinopril 5 mg Tablet 5 mg PO DAILY 30 Days Qty: 30 RF: 0 metoprolol succinate 25 mg Tablet Extended Release 24 Hr 12.5 mg PO DAILY 30 Days Qty: 30 RF: 0 Discharge Orders: Discharge ED (Routine); Ordered 11/04/20 Ordered By: Angela Flores Referrals: Aurelia Ambrocio MD [Primary Care Provider] - Discharge Diet: Advance as tolerated Discharge Activity: Resume usual activity Patient Instructions: Chest Pain (ED) Coding Level of Care Code ED Bookkeeping Assistant for Chg Fwd Exam Comprehensive
[2020-11-03 23:15] VITALS: BP 139/82; PULSE 76; RESP 15; O2SAT 98
[2020-11-03] MEDS: ondansetron 2 mg/ML SDV 2 mL 4 MG IVP (23:20)
[2020-11-03 23:21] VITALS: RESP 18; O2SAT 97
[2020-11-03] MEDS: morphine 4 mg/mL SDV 1 mL IVP (23:21)
[2020-11-03 23:23] LABS: Basophils % 0.2 %; Eosinophils % 0.5 %; Hematocrit 41.4 % (37.0-47.0); Hemoglobin 13.6 g/dL (11.5-15.3); Lymphocytes # 0.8 10^3/uL (0.8-4.8); Lymphocytes % 17.7 %; Mean Corpuscular HGB Conc 32.9 g/dL (30.0-36.0); Mean Corpuscular Hemoglobin 32.6 pg (28.0-34.0); Mean Corpuscular Volume 99.3 fL (81-99); Mean Platelet Volume 9.8 fL (7.4-10.4); Monocytes # 0.4 10^3/uL (0.2-0.9); Monocytes % 9.1 %; Neutrophils # 3.19 10^3/uL (1.8-7.7); Neutrophils % 72.3 %; Nucleated Red Blood Cells % 0 %; Platelet Count 246 10^3/cmm (130-400); Red Blood Count 4.17 10^6/uL (4.1-5.3); Red Cell Distribution Width 11.4 % (12.1-15.1); White Blood Count 4.4 10^3/uL (4.0-10.0)
[2020-11-03 23:30] VITALS: BP 131/80; PULSE 72; RESP 14; O2SAT 95
[2020-11-03 23:45] VITALS: BP 113/70; PULSE 65; RESP 16; O2SAT 95
[2020-11-04] VITALS (9 sets, daily range): BP systolic 100–121; BP diastolic 66–76; PULSE 62–131; RESP 13–21; O2SAT 94–98
[2020-11-04 00:34] LABS: Troponin(5th) Baseline 33 ng/L (0-10)
[2020-11-04 00:43] LABS: Alanine Aminotransferase 31 U/L (0-33); Albumin Level 4.1 g/dL (3.5-5.2); Alkaline Phosphatase 112 IU/L (35-105); Anion Gap 13.3 (5-19); Aspartate Amino Transferase 31 U/L (0-32); Blood Urea Nitrogen 18 mg/dL (6-20); Calcium 9.5 mg/dL (8.5-10.5); Carbon Dioxide 25 mmol/L (22-29); Chloride 103 mmol/L (98-107); Globulin 2.9 g/dL (1.3-4.6); Glomerular Filtration Rate 73.9 mL/min (90-130); Glucose 126 mg/dL (65-115); NT Pro B Type Natriuretic Pept 3433 pg/mL (0-125); Osmolality Calculated 287 mOsm/kg (285-295); Potassium 4.3 mmol/L (3.5-5.1); Sodium 137 mmol/L (136-145); Total Bilirubin 0.3 mg/dL (0.15-1.2)
[2020-11-04 02:46] LABS: Troponin 5 2HR 31.71 ng/L (0-10); Troponin 5 2HR Delta -1.29 ABS# (0-10)
== END 2020-11-04 03:27 | disposition home or self-care (01) ==
PROVIDERS: Emergency Provider Emergency Medicine; PCP Internal Medicine
DX: R07.9 Chest pain, unspecified (principal); Z79.82 Long term (current) use of aspirin; Z79.02 Long term (current) use of antithrombotics/antiplatelets
CPT/HCPCS: 12345; 36415; 71045; 80053; 83880; 84484; 85025; 93005; 96374; 96375; 99283; 99284; J2270; J2405

== ENCOUNTER → 2020-11-10 09:37 | Outpatient (BNVA) | payer OTHER, SELFPAY | PROVIDERS: PCP Internal Medicine; Visit Provider Nurse Practitioner Family | DX: I50.21 Acute systolic (congestive) heart failure (principal); I51.81 Takotsubo syndrome | CPT/HCPCS: 80048 ==

== ENCOUNTER 2021-01-09 06:29 | Day surgery (SDC) | payer OTHER, SELFPAY ==
[2020-12-10 12:56] VITALS: BMI 21.9
[2021-01-07 14:03] VITALS: BMI 21.9
--- NOTE | 2021-01-09 06:53 | ANES.PREANE2 ---
Pre-Anesthetic Assessment Pre-Anesthetic Assessment: Height/Weight: Height 1.68 m Weight 61.689 kg Preop Diagnosis: Non-ST elevation SC Proposed Procedure: Operation Date: 01/09/21 07:30 Proposed Procedures p Colonoscopy Z12.11 38457(Not Applicable) - Terry Berkowitz MD Last intake: Intake Last Liquid Date 01/08/21 Last Liquid Time 22:00 Last Solid Date 01/07/21 Social: Social History: No alcohol and No tobacco Exam: Pre-Anes Outpt Exam: alert, oriented x 3, clear to auscultation bilaterally and regular rate & rhythm Airway: Submandibular: WNL Cervical ROM: WNL MP: 1 Pulmonary: Pulmonary: None reported CV/HEM: CV/HEM: Angina (Stable) Comments: cardiomyopathy heart failure Hepatic: Hepatic: None reported GI: GI: None reported Metabolic: Metabolic: None reported Musc/skel: Comments: lupus Neuropsych: Neuropsych: Anxiety Anesthetic Plan: ASA status: 3 Anesthesia: Anesthesia Evaluation and MAC Risk of > 500 ml blood loss (7ml/kg in children): No PFSH Anesthesia PFSH: Medical History (Updated 12/14/20 @ 15:22 by Eron Luna M.D) Sjogrens syndrome SLE (systemic lupus erythematosus related syndrome) SLE (systemic lupus erythematosus) Stress-induced cardiomyopathy Surgical History History of cataract extraction History of hysterectomy Family History Mother CAD (coronary artery disease) [place] at age 50 Other Cancer Diabetes Family history of premature coronary artery disease Social History Smoking and tobacco status: never smoked Alcohol intake: never History of recent travel: No Data Anesthesia Cardiac Studies: No Data to Display
[2021-01-09 07:05] VITALS: BP 121/74; PULSE 89; RESP 18; TEMP 36.9; O2SAT 99
--- NOTE | 2021-01-09 07:26 | PM.OPSURHP ---
Providers/Chief Complaint Primary Care Provider: Aurelia Ambrocio MD Chief Complaint: colonoscopy History of Present Illness Becky Nichols is a 55 year old female who presents for a colonoscopy due to family history of colon cancer. She had unremarkable prep yesterday. In my's office we discussed the risks of bleeding, infection, and damage intra-abdominal organs. Unfortunately, she continued to take her Plavix and aspirin until today. We discussed with her that we could do the colonoscopy but that if we had to do a polypectomy would have to have her come back for that later another date. Review of Systems General: Reports: 10 or more systems reviewed and unremarkable except in HPI and below Const: Denies: fever(s) Card: Denies: chest pain or irregular heart rhythm Resp: Denies: dyspnea Medications/Allergies Home Medications Medication Instructions Recorded Confirmed Last Taken Type ropinirole 0.5 mg tablet 0.5 mg PO BEDTIME PRN 03/12/20 01/09/21 01/08/21 History triamcinolone acetonide 0.1 % 1 applic TOPICAL DAILY@03/12/20 01/09/21 11/01/20 History topical cream hydroxychloroquine 400 mg PO DAILY@11/01/20 01/09/21 01/09/21 05:30 History mirabegron 25 mg tablet,extended 50 mg PO DAILY@07 tab 11/10/20 01/09/21 01/09/21 05:30 History release 24 hr aspirin 81 mg PO DAILY 12/10/20 01/09/21 01/08/21 History venlafaxine 37.5 mg 37.5 mg PO DAILY 12/11/20 01/09/21 01/08/21 History capsule,extended release 24 hr clopidogrel 75 mg tablet 75 mg PO DAILY #90 tab 12/30/20 01/09/21 01/08/21 Rx metoprolol succinate 25 mg 12.5 mg PO BID #90 tab 12/30/20 01/07/21 Unknown Rx tablet,extended release 24 hr lisinopril 2.5 mg PO DAILY 01/07/21 01/09/21 01/08/21 History Allergies Allergy/AdvReac Type Severity Reaction Status Date / Time No Known Allergies Allergy Verified 12/11/20 16:12 PFSH PFSH: Medical History Sjogrens syndrome SLE (systemic lupus erythematosus related syndrome) SLE (systemic lupus erythematosus) Stress-induced cardiomyopathy Surgical History History of cataract extraction History of hysterectomy Family History Mother CAD (coronary artery disease) [place] at age 50 Other Cancer Diabetes Family history of premature coronary artery disease Social History Smoking and tobacco status: never smoked Alcohol intake: never History of recent travel: No Vital Signs Vitals Signs: Last Vital Signs Temp 98.5 F 01/09/21 07:05 Pulse 89 01/09/21 07:05 Resp 18 01/09/21 07:05 BP 121/74 01/09/21 07:05 Pulse Ox 99 01/09/21 07:05 Weight: Weight last 48 hrs Weight 136 lb Physical Exam Const: COMMON NORMALS: no acute distress and patient oriented x3 GENERAL APPEARANCE: cooperative, comfortable and well developed HENMT: COMMON NORMALS: normocephalic and moist oral mucous membranes HEAD & SCALP: normocephalic Chest: COMMONS NORMALS: normal inspection of the chest Resp: COMMON NORMALS: normal respiratory effort and clear to auscultation bilaterally AUSCULTATION: clear to auscultation bilaterally Cardio: COMMON NORMALS: regular rate, regular rhythm, No gallops present (Cardio), No murmurs present (Cardio) and No rub (Cardio) RATE: regular rate RHYTHM: regular rhythm Extremity: COMMON NORMALS: normal to inspection Neuro: COMMON NORMALS: patient oriented x3 and no focal motor deficits Skin: COMMON NORMALS: no rashes or lesions noted GENERAL SKIN EXAM: no rashes or lesions noted A&P Assessment and plan (1) Family history of colon cancer: We once again discussed the risks of bleeding, perforation, and sedation. She also understands that we may need to repeat a colonoscopy depending on her need for biopsies during the colonoscopy at this time. If a polypectomy is required, we will have to come back at another time when she is off her Plavix. Status: Acute (2) Colonoscopy planned: Status: Acute Coding Level of Care Code Acute Affiliate Marketing Coordinator for Chg Fwd Diagnoses Family history of colon cancer Z80.0 Colonoscopy planned
[2021-01-09] MEDS: sodium chloride 0.9% 1,000 ML 30 ML IV (07:30)
[2021-01-09 07:50] VITALS: BP 94/66; PULSE 71; RESP 12; TEMP 37; O2SAT 99
[2021-01-09 08:05] VITALS: BP 93/57; PULSE 68; RESP 16; TEMP 36.6; O2SAT 99
--- NOTE | 2021-01-09 14:19 | ANE.PACU2 ---
Inpatient post-anesthesia follow up: Airway intact: Yes Vital signs: Temperature 97.9 F Pulse Rate 68 Respiratory Rate 16 Blood Pressure 93/57 Pulse Oximetry 99 Oxygen Delivery Me thod Room Air Oxygen Flow Rate Fraction of Inspir ed Oxygen Hydration adequate: Yes Nausea and vomiting: No Pain level: 1 Mental status: Baseline
== END 2021-01-09 08:30 | disposition home or self-care (01) ==
PROVIDERS: PCP Internal Medicine; Visit Provider Family Medicine
PROC: 0DJD8ZZ Inspection of Lower Intestinal Tract, Via Natural or Artificial Opening Endoscopic (ICD-10-PCS; CPT 45378; principal; 2021-01-09 07:30)
DX: Z12.11 Encounter for screening for malignant neoplasm of colon (principal); Z80.0 Family history of malignant neoplasm of digestive organs; K64.8 Other hemorrhoids; I25.2 Old myocardial infarction; F41.9 Anxiety disorder, unspecified
CPT/HCPCS: 12345; 45378; 96360; J2704; J7030

== ENCOUNTER 2021-02-06 09:37 | Outpatient (CLI) | payer OTHER, SELFPAY ==
--- NOTE | 2021-02-06 09:43 | MM_ITS ---
WS: [id number] Bilateral screening digital mammogram, 02/06/2021 Clinical Data: SCREENING Comparison: 01/02/2020, 11/23/2018, 09/01/2017, 08/20/2016, 08/11/2016, 03/10/2016, 08/07/2015, 08/06/2014, 08/02/2013, 07/13/2012, 07/09/2011, 07/08/2010, 08/01/2009, 08/01/2008, 07/31/2007. Findings: The breast parenchymal pattern shows heterogeneous tissue No spiculated masses or clustered calcifica tions are seen. There are no secondary signs of carcinoma. MM/[id number] Impression: 1. Negative bilateral mammogram unchanged. 2. Recommend annual screening mammograms. BIRADS: 1-Negative FOLLOW UP: 1 Year Follow-up The CAD dead mail checker was used.
== END 2021-02-06 09:38 | disposition home or self-care (01) ==
LOC: RADSHAW 09:41
PROVIDERS: PCP Internal Medicine; Visit Provider Internal Medicine
DX: Z12.31 Encounter for screening mammogram for malignant neoplasm of breast (principal)
CPT/HCPCS: 77067

== ENCOUNTER 2021-03-12 15:04 | Outpatient (CLI) | payer OTHER, SELFPAY ==
--- NOTE | 2021-03-12 15:45 | USCV_ITS ---
Becky Nichols Age: 55 Gender: F : 1965 Exam Date: 03/12/2021 15:21 Ordering Phys: Eron Luna M.D ([email or web address]) Technologist: Gege Camar[place] [facility] [place]: Acute Systolic Heart BP: 117 / 76 HR: 68 Rhythm: Sinus Technical Quality: Adequate MEASUREMENTS (Male / Female) Normal Values 2D ECHO LV Diastolic Diameter PLAX 3.9 cm 4.2 - 5.9 / 3.9 - 5.3 cm LV Systolic Diameter PLAX 2.7 cm IVS Diastolic Thickness 0.9 cm 0.6 - 1.0 / 0.6 - 0.9 cm IVS Systolic Thickness 1.1 cm LVPW Diastolic Thickness 1.0 cm 0.6 - 1.0 / 0.6 - 0.9 cm LVPW Systolic Thickness 1.6 cm RV Chamber Size 2.6 cm LVOT Diameter 2.0 cm LV Ejection Fraction 2D Teich 59.3 % LV Ejection Fraction MOD 2C 59.0 % LV Ejection Fraction 2C AL 60.5 % LA Diameter 2.6 cm LA Width 2.8 cm LA Height 3.8 cm RA Width 2.7 cm RA Height 3.7 cm Aorta at Sinotubular Diameter 2.9 cm M-MODE LV Diastolic Diameter MM 4.8 cm 4.2 - 5.9 / 3.9 - 5.3 cm LV Systolic Diameter MM 3.3 cm LV Ejection Fraction MM Teich 60.3 % IVS Diastolic Thickness MM 0.8 cm 0.6 - 1.0 / 0.6 - 0.9 cm IVS Systolic Thickness MM 1.3 cm LVPW Diastolic Thickness MM 0.9 cm 0.6 - 1.0 / 0.6 - 0.9 cm LVPW Systolic Thickness MM 1.2 cm Aortic Annulus Diameter 3.0 cm LA Ao Ratio MM 0.9 MV E Point Septal Separation 0.6 cm DOPPLER AV Peak Velocity 119.0 cm/s LVOT Peak Velocity 77.0 cm/s AV Area Cont Eq vti 2.1 cm squared AV Area Cont Eq pk 2.1 cm squared MV Area PHT 4.4 cm squared Mitral E to A Ratio 1.1 MV E' Velocity 40.5 cm/s Mitral E to MV E' Ratio 9.2 Mitral E to LV E' Lateral Ratio 7.7 Mitral E to LV E' Septal Ratio 11.6 TR Peak Velocity 275.3 cm/s TR Peak Gradient 30.3 mmHg Right Atrial Pressure 3.0 mmHg Pulmonary Artery Systolic Pressu 33.3 mmHg PV Peak Velocity 83.0 cm/s RV Acceleration Time 0.1 s RV Ejection Time 0.4 s RV AcT/ET 0.4 FINDINGS Left Ventricle Normal left ventricular size. LV systolic function is normal with EF of 50-55%. Borderline global hypokinesis. Normal diastolic filling pattern. Right Ventricle The right ventricle is normal in size and function. Right Atrium The right atrium is normal in size. Left Atrium The left atrium is normal in size. Mitral Valve Structurally normal mitral valve without significant stenosis or prolapse. There is no mitral regurgitation. Aortic Valve Structurally normal aortic valve without significant sclerosis or stenosis. There is no aortic regurgitation. Tricuspid Valve Structurally normal tricuspid valve without significant stenosis or regurgitation. Insufficieint TR jet to calculate RVSP Pulmonic Valve Structurally normal pulmonic valve without significant stenosis. There is no pulmonic regurgitation. Pericardium Normal pericardium without effusion. Aorta Normal ascending aorta dimension. CONCLUSIONS LV systolic function is normal now with EF of 50-55% Diastolic function is normal No significant valvular heart disease Compared to prior echocardiogram from 11/01/2020, LV systolic function has normalized now Eron Luna MD (Electronically Signed) Final Date: 21 Mar 2021 19:19 S
== END 2021-03-12 15:05 | disposition home or self-care (01) ==
LOC: RAD 15:06
PROVIDERS: PCP Internal Medicine; Visit Provider Internal Medicine
DX: I50.21 Acute systolic (congestive) heart failure (principal)
CPT/HCPCS: 93306

== ENCOUNTER → 2021-04-10 09:46 | Outpatient (BNVA) | payer OTHER, SELFPAY | PROVIDERS: PCP Internal Medicine; Visit Provider Internal Medicine | DX: M32.9 Systemic lupus erythematosus, unspecified (principal); Z79.899 Other long term (current) drug therapy; I50.9 Heart failure, unspecified; R53.83 Other fatigue | CPT/HCPCS: 99213; 99214 ==

== ENCOUNTER 2021-06-04 19:23 | Observation (INO) | payer OTHER, SELFPAY ==
[2021-06-04] VITALS (18 sets, daily range): BP systolic 104–136; BP diastolic 66–85; PULSE 60–75; RESP 10–24; TEMP 36.6–36.9; O2SAT 93–100; BMI 22.2
--- NOTE | 2021-06-04 19:38 | XRR_ITS ---
PROCEDURE INFORMATION: Exam: XR Chest Exam date and time: 06/04/2021 7:38 PM Age: 55 years old Clinical indication: Sternal or substernal pain; Patient HX: Sternal cp x today, denies SOB, no HX surgery in chest, non smoker TECHNIQUE: Imaging protocol: XR of the chest. Views: 1 view. COMPARISON: CR XR chest 1V portable [id number] 11/03/2020 7:52 PM FINDINGS: Lungs: Unremarkable. No consolidation. Pleural spaces: Unremarkable. No pleural effusion. No pneumothorax. Heart/Mediastinum: Unremarkable. No cardiomegaly. Bones/joints: Unremarkable. XR/XR chest 1V portable [id number] IMPRESSION: No acute findings.
--- NOTE | 2021-06-04 19:38 | ECG_ITS ---
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1965 Requested By: Angela Flores Order Number: [id number] Reading MD: VERONA STEELE Measurements Intervals [place] Rate: 65 P: -6 AL: 128 QRS: -33 QRSD: 102 T: 149 QT: 463 QTc: 484 Interpretive Statements SINUS RHYTHM MARKED LEFT AXIS DEVIATION [QRS AXIS < -30] SEPTAL MYOCARDIAL INFARCTION [40+ ms Q WAVE IN V1/V2], OF INDETERMINATE AGE MODERATE T-WAVE ABNORMALITY, CONSIDER ANTEROLATERAL ISCHEMIA [-0.1+ mV T WAVE IN V3-V6] Compared to ECG 06/04/2021 19:47:58 Incomplete right bundle-branch block no longer present Myocardial infarct finding still present T-wave abnormality still present Possible ischemia still present Electronically Signed On 06-06-2021 20:30:13 CDT by VERONA STEELE [id number]
--- NOTE | 2021-06-04 19:54 | W.ED.CHESTPA ---
HPI - Chest Pain General: Chief Complaint: Chest Pain Stated Complaint: CP Time Seen by Provider: 06/04/21 19:48 Source: patient Mode of arrival: ambulatory Limitations: no limitations History of Present Illness: HPI narrative: 55-year-old female states started having chest pain 1 hour ago. States pressure type pain in the center of her chest. She had a cardiac cath in October that was normal was likely Tocco Subu as per the report. She states that she thinks that stress related as she has been under a lot of stress lately. She states that her brother is currently on comfort care and she has been dealing with that with him in the hospital. She denies any worsening improving factors. Denies any fever shortness of breath. Associated symptoms: Deny abdominal pain, dyspnea, fever(s), nausea or vomiting Review of Systems Const: Denies: fever(s), chills, body aches or change in appetite Eyes: Denies: blurry vision or eye discomfort ENMT: Denies: throat pain or dental pain Card: Reports: chest pain Resp: Denies: dyspnea GI: Denies: abdominal pain, nausea, vomiting or diarrhea : Denies: dysuria Musc: Denies: neck pain or back pain Skin/Breast: Denies: rash Neuro: Denies: headache(s) Psych: Denies: depression Wily/Lymph: Denies: easy bruising All/Imm: Denies: urticaria PFSH ED PFSH: Medical History Sjogrens syndrome SLE (systemic lupus erythematosus related syndrome) SLE (systemic lupus erythematosus) Stress-induced cardiomyopathy Surgical History History of cataract extraction History of hysterectomy Family History Mother CAD (coronary artery disease) [place] at age 50 Other Cancer Diabetes Family history of premature coronary artery disease Social History Smoking and tobacco status: never smoked Alcohol intake: never History of recent travel: No Physical Exam Const: COMMON NORMALS: no acute distress, patient oriented x3 and healthy appearing HENMT: COMMON NORMALS: normocephalic and atraumatic HEAD & SCALP: normocephalic and atraumatic Eye: COMMON NORMALS: Equal, round and reactive pupils present and EOMs intact bilaterally PUPIL: Yes Equal, round and reactive pupils present Neck/C-Spine: COMMON NORMALS: full ROM and supple Chest: COMMONS NORMALS: normal inspection of the chest and normal palpation of entire chest wall Resp: COMMON NORMALS: normal respiratory effort, No retractions, No use of accessory muscles and clear to auscultation bilaterally AUSCULTATION: clear to auscultation bilaterally Cardio: COMMON NORMALS: regular rate, regular rhythm and No murmurs present (Cardio) RATE: regular rate RHYTHM: regular rhythm GI: COMMON NORMALS: Normal to inspection, nondistended, normoactive bowel sounds present, Soft to palpation, non-tender and no masses PALPATION: Yes Soft to palpation Extremity: COMMON NORMALS: normal to inspection and full ROM Neuro: COMMON NORMALS: patient oriented x3, moves all extremities and no focal motor deficits Psych: COMMON NORMALS: mental status grossly normal, Normal thought process present and cooperative THOUGHT PROCESS: Normal thought process present Skin: COMMON NORMALS: no rashes or lesions noted and no wounds GENERAL SKIN EXAM: no rashes or lesions noted Course Vital Signs: Vital signs: Vital Signs Temperature 98.4 F 06/04/21 20:38 Pulse Rate 60 06/05/21 03:00 Respiratory Rate 20 H 06/05/21 03:00 Blood Pressure 128/83 06/05/21 03:00 Pulse Oximetry 97 06/05/21 03:00 MDM - Chest Pain MDM Narrative: Medical decision making narrative: Patient presents here with chest pain with increased increasing troponins. Her 6-hour troponin was mildly elevated. I still believe her pain is likely due to Tocco Subu's. Spoke to patient and she is concerned she still has had some pain. I spoke to hospitalist and ladies underwear operator and will admit for observation and started on Lovenox for further evaluation. She has no signs of aortic dissection or pulmonary embolism. Lab Data: Labs: Lab Results 06/04/21 06/04/21 06/04/21 Range/Units 20:20 20:20 20:20 WBC 5.6 (4.0-10.0) 10^3/ uL RBC 4.16 (4.1-5.3) 10^6/u L Hgb 13.5 (11.5-15.3) g/dL Hct 39.4 (37.0-47.0) % MCV 94.7 (81-99) fL MCH 32.5 (28.0-34.0) pg MCHC 34.3 (30.0-36.0) g/dL RDW 11.4 L (12.1-15.1) % Plt Count 255 (130-400) 10^3/c mm MPV 10.0 (7.4-10.4) fL Neut % (Auto) 79.3 % Lymph % (Auto) 15.4 % [place] % (Auto) 4.5 % Eos % (Auto) 0.2 % Baso % (Auto) 0.4 % Neut # (Auto) 4.42 (1.8-7.7) 10^3/u L Lymph # (Auto) 0.9 (0.8-4.8) 10^3/u L [place] # (Auto) 0.3 (0.2-0.9) 10^3/u L Eos # (Auto) 0.0 (0.0-0.8) 10^3/u L Baso # (Auto) 0.0 (0.0-0.1) 10^3/u L Nucleated RBC % (a uto) 0 % Nucleated RBCs # 0.0 /100WBC PT 12.60 (12.1-14.9) SECO NDS INR 0.91 (0.8-1.2) Sodium 132 L (136-145) mmol/L Potassium 3.8 (3.5-5.1) mmol/L Chloride 97 L (98-107) mmol/L Carbon Dioxide 23 (22-29) mmol/L Anion Gap 15.8 (5-19) BUN 14 (6-20) mg/dL Creatinine 0.8 (0.5-0.9) mg/dL GFR Calculation 73.9 L (90-130) mL/min Glucose 123 H (65-115) mg/dL Calculated Osmolal ity 276 L (285-295) mOsm/k g Calcium 9.5 (8.5-10.5) mg/dL Total Bilirubin 0.4 (0.15-1.2) mg/dL AST 25 (0-32) U/L ALT 20 (0-33) U/L Alkaline Phosphata se 112 H (35-105) IU/L Troponin T Baselin e (0-10) ng/L Troponin T 120 Min ig[place]ugig (0-10) ng/L Delta Troponin T (0-10) ABS# Troponin T Hi Sens 6Hr (0-10) ng/L Troponin T Hi Sens 6Hr Delta (0-12) ng/L Total Protein 7.2 (6.6-8.7) g/dL Albumin 4.6 (3.5-5.2) g/dL Globulin 2.6 (1.3-4.6) g/dL 06/04/21 06/04/21 06/05/21 Range/Units 20:20 22:33 01:54 WBC (4.0-10.0) 10^3/ uL RBC (4.1-5.3) 10^6/u L Hgb (11.5-15.3) g/dL Hct (37.0-47.0) % MCV (81-99) fL MCH (28.0-34.0) pg MCHC (30.0-36.0) g/dL RDW (12.1-15.1) % Plt Count (130-400) 10^3/c mm MPV (7.4-10.4) fL Neut % (Auto) % Lymph % (Auto) % [place] % (Auto) % Eos % (Auto) % Baso % (Auto) % Neut # (Auto) (1.8-7.7) 10^3/u L Lymph # (Auto) (0.8-4.8) 10^3/u L [place] # (Auto) (0.2-0.9) 10^3/u L Eos # (Auto) (0.0-0.8) 10^3/u L Baso # (Auto) (0.0-0.1) 10^3/u L Nucleated RBC % (a uto) % Nucleated RBCs # /100WBC PT (12.1-14.9) SECO NDS INR (0.8-1.2) Sodium (136-145) mmol/L Potassium (3.5-5.1) mmol/L Chloride (98-107) mmol/L Carbon Dioxide (22-29) mmol/L Anion Gap (5-19) BUN (6-20) mg/dL Creatinine (0.5-0.9) mg/dL GFR Calculation (90-130) mL/min Glucose (65-115) mg/dL Calculated Osmolal ity (285-295) mOsm/k g Calcium (8.5-10.5) mg/dL Total Bilirubin (0.15-1.2) mg/dL AST (0-32) U/L ALT (0-33) U/L Alkaline Phosphata se (35-105) IU/L Troponin T Baselin e 15 H (0-10) ng/L Troponin T 120 Min igiugig 51.12 H (0-10) ng/L Delta Troponin T 36.12 H* (0-10) ABS# Troponin T Hi Sens 6Hr 63.30 H (0-10) ng/L Troponin T Hi Sens 6Hr Delta 48.30 H* (0-12) ng/L Total Protein (6.6-8.7) g/dL Albumin (3.5-5.2) g/dL Globulin (1.3-4.6) g/dL Imaging Data^: CXR: Attestation: I personally reviewed and interpreted this imaging study as follows: Radiologist's impression: [address] [address] XRay Report Signed Patient: Becky Nichols Unit #: [id number] : 1965 Age/Sex: 55 / F ADM Date: 06/04/21 Loc: ER Room/Bed: Attending Dr: Ordering Provider/Ordering MD: Angela Flores MD Date of Service: 06/04/21 Procedure(s): XR chest 1V portable [id number] Accession Number(s): [id number] Report Number: [id number] PROCEDURE INFORMATION: Exam: XR Chest Exam date and time: 06/04/2021 7:38 PM Age: 55 years old Clinical indication: Sternal or substernal pain; Patient HX: Sternal cp x today, denies SOB, no HX surgery in chest, non smoker TECHNIQUE: Imaging protocol: XR of the chest. Views: 1 view. COMPARISON: CR XR chest 1V portable [id number] 11/03/2020 7:52 PM FINDINGS: Lungs: Unremarkable. No consolidation. Pleural spaces: Unremarkable. No pleural effusion. No pneumothorax. Heart/Mediastinum: Unremarkable. No cardiomegaly. Bones/joints: Unremarkable. XR/XR chest 1V portable [id number] IMPRESSION: No acute findings. Dictated By: Chaparro Josue Signed By: Chaparro Josue Signed Date/Time: 06/04/212042 DD/ 40 EKG Data^: EKG 1: Attestation: I personally reviewed and interpreted this EKG as follows: EKG interpretation date: 06/04/21 EKG interpretation time: 19:47 Interpretation: nsr hr [address] elevation, t wave inversions v2-v4 abnormalities qrs 98 qtc 439 EKG 2: Attestation: I personally reviewed and interpreted this EKG as follows: EKG interpretation date: 06/04/21 EKG interpretation time: 21:51 Interpretation: nsr hr [address] elevation, t wave inversion in v2-v4 qrs 102 EKG 3: Attestation: I personally reviewed and interpreted this EKG as follows: EKG interpretation date: 06/05/21 EKG interpretation time: 01:30 Interpretation: nsr hr [address] elevation, twave inversion unchangedfrom previous qrs 91 qtc 492 Discharge Plan Discharge Patient Disposition: Admitted As Inpatient Admit Provider: Jojo Watson Clinical Impression: Non-ST elevation OR (NSTEMI) Condition: Stable Coding Level of Care Code ED Medical Customer Service Representative for Chg Fwd Exam Comprehensive
[2021-06-04] MEDS: aspirin 81 mg Chew Tablet 324 MG PO (20:16)
[2021-06-04] MEDS: nitroglycerin 0.4 mg sublingual Tablet SUBLINGUAL ×3 (20:29→23:10)
[2021-06-04 20:32] LABS: Basophils % 0.4 %; Eosinophils % 0.2 %; Hematocrit 39.4 % (37.0-47.0); Hemoglobin 13.5 g/dL (11.5-15.3); Lymphocytes # 0.9 10^3/uL (0.8-4.8); Lymphocytes % 15.4 %; Mean Corpuscular HGB Conc 34.3 g/dL (30.0-36.0); Mean Corpuscular Hemoglobin 32.5 pg (28.0-34.0); Mean Corpuscular Volume 94.7 fL (81-99); Monocytes # 0.3 10^3/uL (0.2-0.9); Monocytes % 4.5 %; Neutrophils # 4.42 10^3/uL (1.8-7.7); Neutrophils % 79.3 %; Nucleated Red Blood Cells % 0 %; Platelet Count 255 10^3/cmm (130-400); Red Blood Count 4.16 10^6/uL (4.1-5.3); Red Cell Distribution Width 11.4 % (12.1-15.1); White Blood Count 5.6 10^3/uL (4.0-10.0)
[2021-06-04 20:45] LABS: Troponin(5th) Baseline 15 ng/L (0-10)
[2021-06-04 20:47] LABS: Alanine Aminotransferase 20 U/L (0-33); Albumin Level 4.6 g/dL (3.5-5.2); Alkaline Phosphatase 112 IU/L (35-105); Anion Gap 15.8 (5-19); Aspartate Amino Transferase 25 U/L (0-32); Blood Urea Nitrogen 14 mg/dL (6-20); Calcium 9.5 mg/dL (8.5-10.5); Carbon Dioxide 23 mmol/L (22-29); Chloride 97 mmol/L (98-107); Globulin 2.6 g/dL (1.3-4.6); Glomerular Filtration Rate 73.9 mL/min (90-130); Glucose 123 mg/dL (65-115); Osmolality Calculated 276 mOsm/kg (285-295); Potassium 3.8 mmol/L (3.5-5.1); Sodium 132 mmol/L (136-145); Total Bilirubin 0.4 mg/dL (0.15-1.2); Total Protein 7.2 g/dL (6.6-8.7)
[2021-06-04 20:51] LABS: INR 0.91 (0.8-1.2)
[2021-06-04] MEDS: morphine 4 mg/mL SDV 1 mL IVP (21:00)
[2021-06-04] MEDS: ondansetron 2 mg/ML SDV 2 mL 4 MG IVP (21:00)
--- NOTE | 2021-06-04 21:38 | ECG_ITS ---
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1965 Requested By: Angela Flores Order Number: [id number] Reading MD: VERONA STEELE Measurements Intervals [place] Rate: 72 P: 12 GA: 135 QRS: -32 QRSD: 98 T: 58 QT: 414 QTc: 455 Interpretive Statements SINUS RHYTHM WITH OCCASIONAL ECTOPIC PREMATURE COMPLEXES MARKED LEFT AXIS DEVIATION [QRS AXIS < -30] INCOMPLETE RIGHT BUNDLE BRANCH BLOCK [90+ ms QRS DURATION, TERMINAL R IN V1/V2, 40+ ms S IN I/aVL/V4/V5/V6] SEPTAL MYOCARDIAL INFARCTION [40+ ms Q WAVE IN V1/V2], OF INDETERMINATE AGE MODERATE T-WAVE ABNORMALITY, CONSIDER ANTERIOR ISCHEMIA [-0.1+ mV T WAVE IN V3/V4] Compared to ECG 11/04/2020 00:02:02 Left-axis deviation now present Incomplete right bundle-branch block now present Myocardial infarct finding still present T-wave abnormality still present Possible ischemia still present Electronically Signed On 06-06-2021 20:33:18 CDT by VERONA STEELE [id number]
[2021-06-04 23:01] LABS: Troponin 5 2HR 51.12 ng/L (0-10)
[2021-06-04 23:07] LABS: Troponin 5 2HR Delta 36.12 ABS# (0-10)
[2021-06-05] VITALS (13 sets, daily range): BP systolic 95–128; BP diastolic 56–88; PULSE 55–76; RESP 12–20; TEMP 36.7–36.9; O2SAT 94–97
--- NOTE | 2021-06-05 01:38 | ECG_ITS ---
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 Measurements Intervals [place] Rate: 64 P: -5 AR: 133 QRS: -32 QRSD: 91 T: 180 QT: 483 QTc: 499 Interpretive Statements SINUS RHYTHM MARKED LEFT AXIS DEVIATION [QRS AXIS < -30] SEPTAL MYOCARDIAL INFARCTION [40+ ms Q WAVE IN V1/V2], OF INDETERMINATE AGE MODERATE T-WAVE ABNORMALITY, CONSIDER ANTEROLATERAL ISCHEMIA [-0.1+ mV T WAVE IN V3-V6] MODERATE T-WAVE ABNORMALITY, CONSIDER INFERIOR ISCHEMIA [-0.1+ mV T WAVE IN II/aVF] Compared to ECG 06/04/2021 21:51:43 No significant changes Electronically Signed On 06-08-2021 0:38:50 CDT by Kayla Chavira M.D. [id number]
[2021-06-05] MEDS: enoxaparin 80 mg/0.8 mL Syringe 60 MG SUBCUT (03:07)
--- NOTE | 2021-06-05 04:43 | P.HP_ITS ---
Providers/Chief Complaint Admitting Physician: Jojo Watson MD Primary Care Provider: Aurelia Ambrocio MD Chief Complaint: CP History of Present Illness Becky Nichols is a 55 year old female who has history of Sjogren's syndrome, SLE presented with chief complaint of chest discomfort, nausea and vomiting thatstarted at 7pm today. Pain is described as central, non radiating, partially relived with nitroglycerin. Last cardiac cath in 10/26 without obstructive CAD. Echocardiogram revealed apical ballooning,overall picture with stress cardiomyopathy. Today EKG without gross change compared to 10/2020, significant 2hr and 6hr delta troponins. Review of Systems General: Reports: 10 or more systems reviewed and unremarkable except in HPI and below Const: Denies: fever(s), chills or body aches Eyes: Denies: change in vision, blurry vision or photophobia ENMT: Reports: hoarseness; Denies: throat pain, enlarged tonsils, odynophagia or nasal congestion Card: Denies: chest pain, palpitations, irregular heart rhythm, edema, swel ling of feet/ankles, lightheadedness, pre-syncope, dyspnea on exertion or orthopnea Resp: Denies: dyspnea, productive cough, non-productive cough, wheezing, stridor, pain on inspiration, change in phlegm color, hemoptysis or chest congestion GI: Denies: abdominal pain, nausea, vomiting, hematemesis, coffee ground emesis, dysphagia, heartburn, diarrhea, constipation, GI cramping, change in stool character, hematochezia or melena : Denies: flank pain, difficulty voiding, dysuria, urinary frequency, urinary urgency, urinary hesitancy or hematuria Musc: Denies: neck pain, back pain, extremity pain, joint swelling, joint warmth or deformity Neuro: Denies: headache(s), numbness in extremities, weakness in extremities, sensory changes, difficulty walking, frequent falls, dizziness, vertigo, behavioral changes, Slurred speech present or seizure-like activity Psych: Denies: anxiety, depression, suicidal ideation or homicidal ideation Endo: Denies: polyuria, polydipsia, tired all the time, cold intolerance or hot flashes Wily/Lymph: Denies: easy bruising or easy bleeding Medications/Allergies Home Medications Medication Instructions Recorded Confirmed Last Taken Type ropinirole 0.5 mg tablet 0.5 mg PO BEDTIME PRN 03/12/20 06/04/21 01/08/21 History triamcinolone acetonide 0.1 % 1 applic TOPICAL DAILY@07 03/12/20 06/04/21 06/04/21 History topical cream mirabegron 25 mg tablet,extended 50 mg PO DAILY@07 tab 11/10/20 06/04/21 06/04/21 History release 24 hr aspirin 81 mg PO DAILY 12/10/20 06/04/21 06/04/21 History venlafaxine 37.5 mg 37.5 mg PO DAILY 12/11/20 06/04/21 06/04/21 History capsule,extended release 24 hr losartan 25 mg tablet 12.5 mg PO DAILY tab 04/10/21 06/04/21 06/04/21 History cholecalciferol (vitamin D3) 50 mcg PO DAILY 06/04/21 06/04/21 06/04/21 History [Vitamin D3] coenzyme Q10 [CoQ-10] 100 mg PO DAILY 06/04/21 06/04/21 06/04/21 History hydroxychloroquine 200 mg tablet 200 mg PO BID #180 tab 06/04/21 06/04/21 0 06/04/21 Rx metoprolol succinate 12.5 mg PO DAILY 06/04/21 06/04/21 06/04/21 History vitamin B complex 1 tab PO DAILY 06/04/21 06/04/21 06/04/21 History zinc 50 mg PO DAILY 06/04/21 06/04/21 06/04/21 History Allergies Allergy/AdvReac Type Severity Reaction Status Date / Time No Known Allergies Allergy Verified 06/05/21 03:50 PFSH Acute PFSH: Medical History Sjogrens syndrome SLE (systemic lupus erythematosus related syndrome) SLE (systemic lupus erythematosus) Stress-induced cardiomyopathy Surgical History History of cataract extraction History of hysterectomy Family History Mother CAD (coronary artery disease) [place] at age 50 Other Cancer Diabetes Family history of premature coronary artery disease Social History Smoking and tobacco status: never smoked Alcohol intake: never History of recent travel: No Vitals/I&O/Wt Last Vital Signs Temp 98.4 F 06/04/21 20:38 Pulse 60 06/05/21 03:48 Resp 17 06/05/21 03:48 BP 115/56 06/05/21 03:48 Pulse Ox 97 06/05/21 03:48 06/04/21 06/04/21 06/05/21 14:59 22:59 06:59 Intake Total 0 / 0 Balance 0 / 0 Weight last 48 hrs Weight 62.596 kg Physical Exam Narrative: EXAM NARRATIVE: General: No acute distress, AO x3 HEENT: PERRLA, pupils bilaterally equal and reactive, pallors not present Chest: Normal vesicular breath sounds, no added sounds, equal good air entry bilaterally CVS: S1-S2 regular, no murmurs, no tachycardia, no gallops, no rubs Abdomen: Soft, nontender, no organomegaly, bowel sounds present Neuro: No focal deficits, no facial deformity, AO x3, power 5/5 in all limbs Extremities: no edema, clubbing or cyanosis Data : 06/04/21 20:20 06/04/21 20:20 A&P Assessment and plan (1) Non-ST elevation [place] (NSTEMI): Lovenox 1mg/kg q 12h ASA 325 followed by 81mg po daily Nitro patch in case of chest pain Continue statin, acei and b blockers cardiology consult Status: Acute (2) Stress-induced cardiomyopathy: above findings may be a result fo known stress cardiomyopathy - cardiology consult in am Status: Acute Attestations Medical Necessity Statement*: less than 2 midnight anticipated for NSTEMI, cardiology assessment Coding Level of Care Code Acute Intervention Specialist for [facility] Fwd Diagnoses Non-ST elevation [place] (NSTEMI) I21.4 Stress-induced cardiomyopathy I51.81
--- NOTE | 2021-06-05 05:04 | PC.NURSE ---
Dr. Watson notified of patient receiving Lovenox at 0300 in ED. Notified that there is another dose ordered for now. Ordered to retime for 12 hours from first dose. Ordered okay to give patient sips of water, but no food at this time.
[2021-06-05] MEDS: aspirin 81 mg EC Tablet PO (08:12)
[2021-06-05] MEDS: venlafaxine ER (24HR) 37.5 mg Capsule PO (08:12)
[2021-06-05] MEDS: hydroxychloroquine 200 mg Tablet PO ×2 (08:12→17:53)
[2021-06-05] MEDS: metoprolol succinate ER (24 HR) 25 mg Tablet 12.5 MG PO (08:13)
[2021-06-05] MEDS: losartan 50 mg Tablet 12.5 MG PO (08:13)
[2021-06-05] MEDS: pantoprazole DR 40 mg Tablet PO (08:17)
--- NOTE | 2021-06-05 09:10 | ECG_ITS ---
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1965 Requested By: Kayla Chavira Order Number: [id number] Reading MD: VERONA STEELE Measurements Intervals [place] Rate: 65 P: -3 IA: 126 QRS: 2 QRSD: 86 T: 207 QT: 458 QTc: 479 Interpretive Statements SINUS RHYTHM SEPTAL MYOCARDIAL INFARCTION [40+ ms Q WAVE IN V1/V2], PROBABLY INDETERMINATE Compared to ECG 06/05/2021 01:30:40 Left-axis deviation no longer present T-wave abnormality no longer present Possible ischemia no longer present Myocardial infarct finding still present Electronically Signed On 06-06-2021 20:32:43 CDT by VERONA STEELE [id number]
[2021-06-05] MEDS: nitroglycerin 0.4 mg sublingual Tablet SUBLINGUAL ×3 (09:31→17:42)
[2021-06-05] MEDS: acetaminophen 325 mg Tablet 650 MG PO ×2 (09:43→17:54)
--- NOTE | 2021-06-05 11:00 | PC.NURSE ---
at 0905..pt notified staff that she was having chest pain.pt rated pain as 5/10.described it as a pressure type pain..similar to the pain i had before my heart cath in oct. pain is in left chest area.no radiation reported.denies sob.no diaphoresis noted.bp 123/82,hr 66 (nsr).resp 16.o2 sat 95% on room air.ekg obtained.no changes noted.1 sl ntg given at 0931.at 0936, bp 125/75.hr 70.pt rated pain at 3/10.pt also c/o headache .rn obtained ordered tylenol.when returned to room..pt states cp had decreased to 1/10.no further ntg given.bp now 111/66.
--- NOTE | 2021-06-05 11:35 | USCV_ITS ---
Becky Nichols Age: 55 Gender: F : 1965 Exam Date: 06/05/2021 15:38 Ordering Phys: Kamar Mendez MD Technologist: Yessenia Manning Exam Location: [facility] [place] Indication: takosubo BP: 101 / 66 HR: 95 Rhythm: Sinus Technical Quality: Good MEASUREMENTS (Male / Female) Normal Values 2D ECHO LV Diastolic Diameter PLAX 4.6 cm 4.2 - 5.9 / 3.9 - 5.3 cm LV Systolic Diameter PLAX 3.8 cm IVS Diastolic Thickness 0.9 cm 0.6 - 1.0 / 0.6 - 0.9 cm IVS Systolic Thickness 0.8 cm LVPW Diastolic Thickness 1.2 cm 0.6 - 1.0 / 0.6 - 0.9 cm LVPW Systolic Thickness 1.3 cm LVOT Diameter 2.0 cm LV Ejection Fraction 2D Teich 38.3 % LV Ejection Fraction MOD 2C 45.7 % LV Ejection Fraction 2C AL 43.9 % LA Diameter 3.0 cm LA Width 2.8 cm LA Height 4.2 cm RA Width 2.9 cm RA Height 3.1 cm Aorta at Sinotubular Diameter 3.2 cm DOPPLER MV Peak Velocity 86.0 cm/s MV Area PHT 4.6 cm squared Mitral E to A Ratio 0.9 MV E' Velocity 42.5 cm/s Mitral E to MV E' Ratio 14.0 Mitral E to LV E' Lateral Ratio 17.7 Mitral E to LV E' Septal Ratio 11.7 FINDINGS Left Ventricle Moderately increased left ventricular cavity size. Severely decreased left ventricular systolic function. Left ventricular ejection fraction is estimated at 35 %. Mid to distal anterior apical and mid to distal lateral wall akinesia with apical ballooning suggestive of stress-induced cardiomyopathy.Grade I/IV diastolic dysfunction (abnormal relaxation filling pattern), normal to mildly elevated filling pressures. Right Ventricle The right ventricle is normal in size and function. RVSP could not be calculated due to incomplete tricuspid regurgitation velocity profile. Right Atrium The right atrium is normal in size. Left Atrium The left atrium is normal in size. Mitral Valve Structurally normal mitral valve. Trace mitral valve regurgitation. Aortic Valve Structurally normal aortic valve without significant sclerosis or stenosis. There is no aortic regurgitation. Tricuspid Valve Structurally normal tricuspid valve without significant stenosis or regurgitation. Pulmonic Valve Structurally normal pulmonic valve without significant stenosis. There is no pulmonic regurgitation. Pericardium Normal pericardium without effusion. Aorta Normal ascending aorta dimension. CONCLUSIONS 1-Moderately increased left ventricular cavity size. Severely decreased left ventricular systolic function. Left ventricular ejection fraction is estimated at 35 %. Mid to distal anterior apical and mid to distal lateral wall akinesia with apical ballooning suggestive of stress-induced cardiomyopathy. Grade I/IV diastolic dysfunction (abnormal relaxation filling pattern), normal to mildly elevated filling pressures. 2-There is no pericardial effusion. 3-No significant chamber abnormalities. 4-The right ventricle is normal in size and function. RVSP could not be calculated due to incomplete tricuspid regurgitation velocity profile. 5-Right atrial pressure is around 5 mm of mercury. 6-When compared to the prior echocardiogram dated 21 Mar 2021 left ventricular ejection function is severely reduced from normal 55% to 35% now. Presentation is consistent with stress- induced cardiomyopathy Raj Gibson MD (Electronically Signed) Final Date: 05 June 2021 16:55 S
--- NOTE | 2021-06-05 11:47 | PC.CHAP ---
Pastoral Care Encounter/Spiritual Assessment Type of Contact [] Declined boat builder and repairer visit [] Patient/Family/Request visit [] Outpatient visit [] Follow-up visit [] Physician referral [] Code/Alert [xx] Routine visit [] Staff referral [] Actively dying [] Patient sleeping [] Family support [] [] Out of room [] Palliative care [] [] Receiving care in room [] Pre-surgical visit [] Trauma [] Long length of stay [] ICU visit [] Other: Relational/Emotional Strength [xx] Patient feels connected with others/family/visitors/staff [] Distress [] Loneliness/isolation [] Abandonment Spirituality of Patient [xx] Person of Raquel [xx] Attends Episcopal of their Raquel [xx] Believes in Prayer [xx] Reads Bible or Gnosticist materials [] There are Spiritual issues to be addressed Neighborhood Worker Interventions [xx] Prayer [xx] Active listening [xx] Non-anxious presence [] Spiritual/emotional support [] Crisis/trauma care [] Spiritual counseling [] Bereavement support [] Provided bereavement packet [] Provided Bible/devotional materials [] Provided toy/stuffed animal, coloring book to patient or family member [] Provided Communion [] Anointing/[place] [] Salvation [xx] Completed spiritual assessment [] Other: Impact on Illness or Injury [] Angry [] Fearful [] Anxious [] Often cries [] Exhaustion [] Unable to work [] Unable to attend gnosticism [] Unable to walk/stand [] Unable to read [] Unable to drive [] Unable to eat/drink [] Unable to sleep [] Unable to be with family [] Patient intubated [] Other: Summary Patient feels better. She did not have a full heart attack for which she thanks God. ,Jos, present. Time spent with patient 6 minutes
--- NOTE | 2021-06-05 16:59 | P.CONIM_ITS ---
Providers/Reason For Consult Consulting Physician/Specialty*: Cardiology Reason for Consult*: Non-ST elevation [place] Attending Physician: Kamar Mendez MD Primary Care Provider: Aurelia Ambrocio MD History of Present Illness History of Present Illness Becky Nichols is a 55 year old female past medical history significant for Sjogren's syndrome SLE history of stress-induced cardiomyopathy few months back when she has angiogram which did not show any significant obstructive coronary artery disease she was suggestive to have Takotsubo syndrome. Ejection fraction was reduced to 35% after optimization of medicine it improved back to 55% which was normal. Yesterday patient presented with chest pain shortness of breath with abnormal cardiac markers. Twelve-lead EKG was suggestive of anterolateral T wave inversion suggestive of myocardial injury. Patient presentation was qu ite similar as prior, echocardiogram showed reduction of ejection from normal 55% to severely reduced 35% now. Patient is going through a stressful time due to unfortunate demise of her brother. Right now she denies chest pain PND orthopnea. She admits to shortness of breath. Review of Systems General: Reports: 10 or more systems reviewed and unremarkable except in HPI and below Const: Denies: fever(s), chills, body aches or change in appetite Eyes: Denies: change in vision, blurry vision, photophobia or eye discomfort ENMT: Reports: hoarseness; Denies: throat pain, enlarged tonsils, odynophagia, dental pain or nasal congestion Card: Denies: chest pain, palpitations, irregular heart rhythm, edema, swelling of feet/ankles, lightheadedness, pre-syncope, dyspnea on exertion or orthopnea Resp: Denies: dyspnea, productive cough, non-productive cough, wheezing, stridor, pain on inspiration, change in phlegm color, hemoptysis or chest congestion GI: Denies: abdominal pain, nausea, vomiting, hematemesis, coffee ground emesis, dysphagia, heartburn, diarrhea, constipation, GI cramping, change in stool character, hematochezia or melena : Denies: flank pain, difficulty voiding, dysuria, urinary frequency, urinary urgency, urinary hesitancy or hematuria Musc: Denies: neck pain, back pain, extremity pain, joint swelling, joint warmth or deformity Skin/Breast: Denies: rash Neuro: Denies: headache(s), numbness in extremities, weakness in extremities, sensory changes, difficulty walking, frequent falls, dizziness, vertigo, behavioral changes, Slurred speech present or seizure-like activity Psych: Denies: anxiety, depression, suicidal ideation or homicidal ideation Endo: Denies: polyuria, polydipsia, tired all the time, cold intolerance or hot flashes Wily/Lymph: Denies: easy bruising or easy bleeding All/Imm: Denies: urticaria Meds/Allergies Home Medications and Allergies Home Medications Medication Instructions Recorded Confirmed Last Taken Type ropinirole 0.5 mg tablet 0.5 mg PO BEDTIME PRN 03/12/20 06/04/21 01/08/21 History triamcinolone acetonide 0.1 % 1 applic TOPICAL DAILY@07 03/12/20 06/04/21 06/04/21 History topical cream mirabegron 25 mg tablet,extended 50 mg PO DAILY@07 tab 11/10/20 06/04/21 06/04/21 History release 24 hr aspirin 81 mg PO DAILY 12/10/20 06/04/21 06/04/21 History venlafaxine 37.5 mg 37.5 mg PO DAILY 12/11/20 06/04/21 06/04/21 History capsule,extended release 24 hr losartan 25 mg tablet 12.5 mg PO DAILY tab 04/10/21 06/04/21 06/04/21 History cholecalciferol (vitamin D3) 50 mcg PO DAILY 06/04/21 06/04/21 06/04/21 History [Vitamin D3] coenzyme Q10 [CoQ-10] 100 mg PO DAILY 06/04/21 06/04/21 06/04/21 History hydroxychloroquine 200 mg tablet 200 mg PO BID #180 tab 06/04/21 06/04/21 06/04/21 Rx metoprolol succinate 12.5 mg PO DAILY 06/04/21 06/04/21 06/04/21 History vitamin B complex 1 tab PO DAILY 06/04/21 06/04/21 06/04/21 History zinc 50 mg PO DAILY 06/04/21 06/04/21 06/04/21 History Allergies Allergy/AdvReac Type Severity Reaction Status Date / Time No Known Allergies Allergy Verified 06/05/21 03:50 Current Medications Current Medications Generic Name Dose Route Start Last Admin Trade Name Freq PRN Reason Stop Dose Admin Acetaminophen 650 mg 06/05/21 04:50 06/05/21 09:43 Acetaminophen 325 Mg Tablet PO 650 mg Q6H PRN Administration Mild/Mod Pain Or Temp >/= 101 Aspirin 81 mg 06/05/21 09:00 06/05/21 08:12 Aspirin 81 Mg Ec Tablet PO 81 mg DAILY KEVAN Administration Hydroxychloroquine Sulfate 200 mg 06/05/21 09:00 06/05/21 08:12 Hydroxychloroquine 200 Mg Tablet PO 200 mg BID KEVAN Administration Losartan Potassium 12.5 mg 06/05/21 09:00 06/05/21 08:13 Losartan 50 Mg Tablet PO 12.5 mg DAILY KEVAN Administration Metoprolol Succinate 12.5 mg 06/05/21 09:00 06/05/21 08:13 Metoprolol Succinate Er (24 Hr) 25 Mg Tablet PO 12.5 mg DAILY KEVAN Administration Nitroglycerin 0.4 mg 06/04/21 19:57 06/05/21 09:31 Nitroglycerin 0.4 Mg Sublingual Tablet SUBLINGUAL 0.4 mg Q5M PRN Administration CHEST PAIN Pantoprazole Sodium 40 mg 06/05/21 09:00 06/05/21 08:[address] 40 Mg Tablet PO 40 mg DAILY KEVAN Administration Venlafaxine HCl 37.5 mg 06/05/21 09:00 06/05/21 08:12 Venlafaxine Er (24hr) 37.5 Mg Capsule PO 37.5 mg DAILY KEVAN Administration PFSH Acute PFSH: Medical History Sjogrens syndrome SLE (systemic lupus erythematosus related syndrome) SLE (systemic lupus erythematosus) Stress-induced cardiomyopathy Surgical History History of cataract extraction History of hysterectomy Family History Mother CAD (coronary artery disease) [place] at age 50 Other Cancer Diabetes Family history of premature coronary artery disease Social History Smoking and tobacco status: never smoked Alcohol intake: never History of recent travel: No Dietary Habits: Current diet type/program: regular Caffeine: Yes Caffeine intake frequency: coffee Vitals/I&O/Wt Last Vital Signs Temp 98.4 F 06/05/21 15:23 Pulse 71 06/05/21 15:23 Resp 19 H 06/05/21 15:23 BP 101/66 06/05/21 15:23 Pulse Ox 94 06/05/21 15:23 06/05/21 06/05/21 06/05/21 06:59 14:59 22:59 Intake Total 0 / 0 Balance 0 / 0 Weight last 48 hrs Weight 138 lb Physical Exam Narrative: EXAM NARRATIVE: GENERAL: Patient is alert, awake and oriented x3. NECK: No jugular vein distension. HEENT: No cyanosis. No icterus. No pallor. HEART: Regular S1 and S2. No murmur, rub or gallop. LUNGS: Clear to auscultate bilaterally. ABDOMEN: Soft, nontender and nondistended. Positive bowel sounds. No guarding, rebound or tenderness. CENTRAL NERVOUS SYSTEM: Grossly nonfocal. EXTREMITIES: Lower extremities without edema bilaterally. A&P Assessment and plan (1) Stress-induced cardiomyopathy: Recommend optimization of medicine she is already on beta-christina ARB statin I will add isosorbide mononitrate and Plavix. Continue Plavix for 1 year Status: Acute (2) HFrEF (heart failure with reduced ejection fraction): Status: Acute Additional A&P Information At this point she appeared to be well compensated however in case of worsening of shortness of breath she may can be diuresed. We recommend giving 20 mg of p.o. Lasix on daily basis along with 10 mEq of potassium. Consult Attestations Medical Necessity Statement: Patient require continuation hospitalization for optimization of medicine Coding Level of Care Code New Pt Acute Pv Design And Installation Technician for [facility] Fwd Patient Type New History Detailed Exam Detailed Medical Decision Making Moderate Complexity Diagnoses Stress-induced cardiomyopathy I51.81 HFrEF (heart failure with reduced ejection fraction) I50.20
--- NOTE | 2021-06-05 17:22 | ECG_ITS ---
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1965 Requested By: Raj Gibson Order Number: [id number] Reading MD: RAJ GIBSON Measurements Intervals [place] Rate: 76 P: 20 ND: 129 QRS: -31 QRSD: 85 T: 236 QT: 480 QTc: 540 Interpretive Statements SINUS RHYTHM MARKED LEFT AXIS DEVIATION [QRS AXIS < -30] SEPTAL MYOCARDIAL INFARCTION [40+ ms Q WAVE IN V1/V2], PROBABLY INDETERMINATE Compared to ECG 06/05/2021 09:26:59 Left-axis deviation now present Myocardial infarct finding still present Electronically Signed On 06-06-2021 20:32:08 CDT by RAJ GIBSON [id number]
[2021-06-05] MEDS: enoxaparin 60 mg/0.6 mL Syringe SUBCUT (17:53)
--- NOTE | 2021-06-05 19:01 | PC.NURSE ---
at 1715 pt contacted staff and stated she was having chest pain.rated pain 6/10.(left side of chest...non-radiating.)bp 128/82.hr 74.resp 20.o2 sat 98% on room air.ekg obtained.attempt to notify dr duran.1 sl ntg given at 1729.at 1737 bp 111/69. rated pain at 4/10.2nd ntg given.pain subsided to 2/10.bp 112/72.heart rate 70.pt did not want 3rd nitro. tylenol given for headache.dr duran and dr villalba contacted.no new orders received.
--- NOTE | 2021-06-05 19:24 | P.PN_ITS ---
Subjective Subjective: Interval history: Admitted admitted overnight. H&P labs noted. Patient did have some chest pain overnight. Relieved by nitro. During the day she did not have any further chest pain. She was seen by cardiology and was supposed to be discharged but in the evening prior to discharge she received news of her brother passing away is also admitted under my care for that she had further chest pain with mild shortness of breath so decision was made to keep her overnight again for further observation. Vitals/I&O/Wt Last Vital Signs Temp 98.4 F 06/05/21 15:23 Pulse 76 06/05/21 19:00 Resp 17 06/05/21 19:00 BP 106/72 06/05/21 19:00 Pulse Ox 96 06/05/21 19:00 06/05/21 06/05/21 06/05/21 06:59 14:59 22:59 Intake Total 0 / 0 360 / 360 Balance 0 / 0 360 / 360 Weight last 48 hrs Weight 62.596 kg Physical Exam Narrative: EXAM NARRATIVE: General: No acute distress, AO x3 HEENT: PERRLA, pupils bilaterally equal and reactive, pallors not present Chest: Normal vesicular breath sounds, no added sounds, equal good air entry bilaterally CVS: S1-S2 regular, no murmurs, no tachycardia, no gallops, no rubs Abdomen: Soft, nontender, no organomegaly, bowel sounds present Neuro: No focal deficits, no facial deformity, AO x3, power 5/5 in all limbs Extremities: no edema, clubbing or cyanosis Data : 06/04/21 20:20 06/04/21 20:20 A&P Assessment and plan (1) Stress-induced cardiomyopathy: above findings may be a result fo known stress cardiomyopathy - cardiology consult in am Status: Acute (2) HFrEF (heart failure with reduced ejection fraction): Status: Acute (3) SLE (systemic lupus erythematosus related syndrome): Status: Acute Additional A&P Information Chest pain most likely secondary stress induced cardiomyopathy: Appreciate cardiology recommendations. Echocardiogram results appreciated. Continue with aspirin, statin, beta-christina, ARB. As per cardiology recommendations add Plavix, low-dose Imdur. Heart failure due to reduced ejection fraction: Appreciate echocardiogram. Compensated at present. P.o. Lasix 20 mg daily along with potassium 10 mg daily. Continue other chronic medications. Full code. Cardiac diet. Lovenox 40 mg subcu daily for DVT prophylaxis. Attestations Medical Necessity Statement*: Requires further hospitalization for management of chest pain in setting of Takotsubo cardiomyopathy with reduced ejection fraction. Time Spent in Patient Care: Greater than 35 minutes (>than 50% of time spent in counselling and/or direct pt care on unit) . Coding Level of Care Code Acute Induction Coordination Engineer for [facility] Diagnoses Stress-induced cardiomyopathy I51.81 HFrEF (heart failure with reduced ejection fraction) I50.20 SLE (systemic lupus erythematosus related syndrome) M32.9
[2021-06-06 03:17] VITALS: BP 111/72; PULSE 75; RESP 17; O2SAT 98
--- NOTE | 2021-06-06 03:22 | PC.NURSE ---
Patient has no complaints.
[2021-06-06 04:17] VITALS: PULSE 67
[2021-06-06 08:00] VITALS: BP 125/76; PULSE 73; RESP 20; TEMP 36.6; O2SAT 98
[2021-06-06 08:28] VITALS: BP 125/79
[2021-06-06] MEDS: losartan 50 mg Tablet 12.5 MG PO (08:28)
[2021-06-06] MEDS: clopidogrel 75 mg Tablet PO (08:29)
[2021-06-06] MEDS: potassium chloride ER 10 mEq Tablet PO (08:29)
[2021-06-06] MEDS: FUROsemide 20 mg Tablet PO (08:29)
[2021-06-06] MEDS: venlafaxine ER (24HR) 37.5 mg Capsule PO (08:30)
[2021-06-06] MEDS: isosorbide mononitrate ER 30 mg Tablet 15 MG PO (08:30)
[2021-06-06] MEDS: metoprolol succinate ER (24 HR) 25 mg Tablet 12.5 MG PO (08:30)
[2021-06-06] MEDS: hydroxychloroquine 200 mg Tablet PO (08:30)
[2021-06-06] MEDS: pantoprazole DR 40 mg Tablet PO (08:30)
[2021-06-06] MEDS: aspirin 81 mg EC Tablet PO (08:30)
--- NOTE | 2021-06-06 10:37 | P.DS_ITS ---
Discharge Providers Date of Admission: 06/05/21 02:44 Date of Discharge: June 06, 2021 Attending Provider at Admission: Jojo Watson MD Attending Provider at Discharge: Kamar Mendez MD Consults: Cardiology: Dr. Gibson Primary Care Provider: Aurelia Ambrocio MD Diagnoses at Discharge Discharge Diagnosis (1) Stress-induced cardiomyopathy: Status: Acute (2) HFrEF (heart failure with reduced ejection fraction): Status: Acute (3) SLE (systemic lupus erythematosus related syndrome): Status: Acute Reason for Visit Reason for Visit: CP Hospital Course Hospital Course Becky Nichols is a 55 year old female who has history of Sjogren's syndrome, SLE presented with chief complaint of chest discomfort, nausea and vomiting that started at 7pm today. Pain is described as central, non radiating, partially relived with nitroglycerin. Patient has been having stressful situations at home with her brother transitioning over to comfort measures. Last cardiac cath in 10/26 without obstructive CAD. Echocardiogram revealed apical ballooning,overall picture with stress cardiomyopathy. Patient was admitted to the hospital for further management of typical chest pain in setting of Takotsubo cardiomyopathy. Cardiology was consulted and echocardiogram was repeated. Echocardiogram showed moderately increased LV cavity size, severely decreased LV function with EF of 35%, mid to distal anterior apical and mid to distal lateral wall akinesia with apical ballooning suggestive of stress-induced cardiomyopathy, grade 1 diastolic dysfunction which is reduced since March 2021 when her EF was 55%. Her cardiac medications were adjusted. Patient was to be discharged on June 05 but in the evening prior to discharge she received news of her brother passing away is also admitted under my care for that she had further chest pain with mild shortness of breath so decision was made to keep her overnight again for further observation. Patient is been discharged in hemodynamically stable condition with adjusted cardiac medications with advised to follow-up with a primary care provider and soft sugar supervisor within next 2 weeks. Physical Exam Narrative: EXAM NARRATIVE: General: No acute distress, AO x3 HEENT: PERRLA, pupils bilaterally equal and reactive, pallors not present Chest: Normal vesicular breath sounds, no added sounds, equal good air entry bilaterally CVS: S1-S2 regular, soft pansystolic murmur at apex, no tachycardia, no gallops, no rubs Abdomen: Soft, nontender, no organomegaly, bowel sounds present Neuro: No focal deficits, no facial deformity, AO x3, power 5/5 in all limbs Extremities: no edema, clubbing or cyanosis Discharge Data Data Completed and Pending: Completed Studies During Hospitalization Category Date Time Status XR chest 1V shailesh ble [id number] Stat Exams 06/04/21 19:38 Completed CV. echo limited [id number] Routine Ultrasound 06/05/21 11:35 Completed Addt'l Data from Hospital Stay: Laboratory Results WBC 5.6 10^3/uL (4.0- 10.0) 06/04/21 20:20 RBC 4.16 10^6/uL (4.1 -5.3) 06/04/21 20:20 Hgb 13.5 g/dL (11.5-1 5.3) 06/04/21 20:20 Hct 39.4 % (37.0-47.0 ) 06/04/21 20:20 MCV 94.7 fL (81-99) 06/04/21 20:20 MCH 32.5 pg (28.0-34. 0) 06/04/21 20:20 MCHC 34.3 g/dL (30.0-3 6.0) 06/04/21 20:20 RDW 11.4 % (12.1-15.1 ) L 06/04/21 20:20 Plt Count 255 10^3/cmm (130 -400) 06/04/21 20:20 MPV 10.0 fL (7.4-10.4 ) 06/04/21 20:20 Neut % (Auto) 79.3 % 06/04/21 20:20 Lymph % (Auto) 15.4 % 06/04/21 20:20 [place] % (Auto) 4.5 % 06/04/21 20:20 Eos % (Auto) 0.2 % 06/04/21 20:20 Baso % (Auto) 0.4 % 06/04/21 20:20 Neut # (Auto) 4.42 10^3/uL (1.8 -7.7) 06/04/21 20:20 Lymph # (Auto) 0.9 10^3/uL (0.8- 4.8) 06/04/21 20:20 [place] # (Auto) 0.3 10^3/uL (0.2- 0.9) 06/04/21 20:20 Eos # (Auto) 0.0 10^3/uL (0.0- 0.8) 06/04/21 20:20 Baso # (Auto) 0.0 10^3/uL (0.0- 0.1) 06/04/21 20:20 Nucleated RBC % (a uto) 0 % 06/04/21 20:20 Nucleated RBCs # 0.0 /100WBC 06/04/21 20:20 PT 12.60 SECONDS (12 .1-14.9) 06/04/21 20:20 INR 0.91 (0.8-1.2) 06/04/21 20:20 Sodium 132 mmol/L (136-1 45) L 06/04/21 20:20 Potassium 3.8 mmol/L (3.5-5 .1) 06/04/21 20:20 Chloride 97 mmol/L (98-107 ) L 06/04/21 20:20 Carbon Dioxide 23 mmol/L (22-29) 06/04/21 20:20 Anion Gap 15.8 (5-19) 06/04/21 20:20 BUN 14 mg/dL (6-20) 06/04/21 20:20 Creatinine 0.8 mg/dL (0.5-0. 9) 06/04/21 20:20 GFR Calculation 73.9 mL/min (90-1 30) L 06/04/21 20:20 Glucose 123 mg/dL (65-115 ) H 06/04/21 20:20 Calculated Osmolal ity 276 mOsm/kg (285- 295) L 06/04/21 20:20 Calcium 9.5 mg/dL (8.5-10 .5) 06/04/21 20:20 Total Bilirubin 0.4 mg/dL (0.15-1 .2) 06/04/21 20:20 AST 25 U/L (0-32) 06/04/21 20:20 ALT 20 U/L (0-33) 06/04/21 20:20 Alkaline Phosphata se 112 IU/L (35-105) H 06/04/21 20:20 Troponin T Baselin e 15 ng/L (0-10) H 06/04/21 20:20 Troponin T 120 Min [place] 51.12 ng/L (0-10) H 06/04/21 22:33 Delta Troponin T 36.12 ABS# (0-10) H* 06/04/21 22:33 Troponin T Hi Sens 6Hr 63.30 ng/L (0-10) H 06/05/21 01:54 Troponin T Hi Sens 6Hr Delta 48.30 ng/L (0-12) H* 06/05/21 01:54 Total Protein 7.2 g/dL (6.6-8.7 ) 06/04/21 20:20 Albumin 4.6 g/dL (3.5-5.2 ) 06/04/21 20:20 Globulin 2.6 g/dL (1.3-4.6 ) 06/04/21 20:20 Impressions Chest X-Ray 06/04/21 19:38 IMPRESSION: No acute findings. ECHOCARDIOGRAM: CONCLUSIONS 1-Moderately increased left ventricular cavity size. Severely decreased left ventricular systolic function. Left ventricular ejection fraction is estimated at 35 %. Mid to distal anterior apical and mid to distal lateral wall akinesia with apical ballooning suggestive of stress-induced cardiomyopathy. Grade I/IV diastolic dysfunction (abnormal relaxation filling pattern), normal to mildly elevated filling pressures. 2-There is no pericardial effusion. 3-No significant chamber abnormalities. 4-The right ventricle is normal in size and function. RVSP could not be calculated due to incomplete tricuspid regurgitation velocity profile. 5-Right atrial pressure is around 5 mm of mercury. 6-When compared to the prior echocardiogram dated 21 Mar 2021 left ventricular ejection function is severely reduced from normal 55% to 35% now. Presentation is consistent with stress- induced cardiomyopathy Vitals: Last Vital Signs Temp 97.9 F 06/06/21 08:00 Pulse 73 06/06/21 08:00 Resp 20 H 06/06/21 08:00 BP 125/79 06/06/21 08:28 Pulse Ox 98 06/06/21 08:00 Discharge Plan Discharge Patient Disposition: Home Condition: Stable Prescriptions: New clopidogrel 75 mg tablet 75 mg PO DAILY Qty: 90 RF: 4 isosorbide mononitrate 10 mg tablet 10 mg PO BID Qty: 60 RF: 3 nitroglycerin 0.4 mg tablet, sublingual 0.4 mg sublingual Q5M Qty: 30 RF: 3 furosemide 20 mg Tablet 20 mg PO DAILY@0800 PRN (Reason: SOB and swelling) Qty: 10 RF: 0 aspirin 81 mg Tablet,Delayed Release (Dr/Ec) 81 mg PO DAILY Qty: 90 RF: 3 Continued losartan 25 mg tablet 12.5 mg PO DAILY RF: 0 triamcinolone acetonide 0.1 % cream 1 applic TOPICAL DAILY@07 RF: 0 ropinirole 0.5 mg tablet 0.5 mg PO BEDTIME PRN (Reason: Restless Leg(S)) RF: 0 Myrbetriq 25 mg tablet extended release 24 hr 50 mg PO DAILY@07 RF: 0 venlafaxine [Effexor XR] 37.5 mg capsule,extended release 24hr 37.5 mg PO DAILY RF: 0 hydroxychloroquine [Plaquenil] 200 mg tablet 200 mg PO BID Qty: 180 RF: 1 aspirin 81 mg tablet,delayed release (DR/EC) 81 mg PO DAILY RF: 0 vitamin B complex Tablet 1 tab PO DAILY RF: 0 zinc 50 mg Tablet 50 mg PO DAILY RF: 0 CoQ-10 100 mg Capsule 100 mg PO DAILY RF: 0 Vitamin D3 50 mcg (2,000 unit) Tablet 50 mcg PO DAILY RF: 0 metoprolol succinate 25 mg tablet extended release 24 hr 12.5 mg PO DAILY RF: 0 Discharge Orders: Discharge Order (Routine); Ordered 06/06/21 Ordered By: Kamar Mendez Referrals: Aurelia Ambrocio MD [Primary Care Provider] - 4-7 days Eron Luna M.D [Physician] - 1 month Discharge Diet: Cardiac and Low Salt Discharge Activity: Increase activity as tolerated Patient Instructions: Opioid Safety Activity Restrictions/Additional Instructions: Please weigh yourself every day if you gain more than 3 pound in 2 consecutive days take Lasix 20 mg with potassium chloride 10 meq, follow-up with Varsha Scott cardiology nurse practitioner in 7 days. Follow-up with Dr Luna in 4 weeks. Discharge Attestations Time Spent in Discharge Care*: greater than 30 min Status at Discharge: Cognitive status at discharge: cognitively intact , Behavioral status at discharge: cooperative , Functional status at discharge: independent ambulation Overall status at discharge: patient is back to baseline Quality Metrics Clinical Quality Measures During this hospital stay, did patient experience: None Coding Level of Care Code Acute Chg FW DC note Diagnoses Stress-induced cardiomyopathy I51.81 HFrEF (heart failure with reduced ejection fraction) I50.20 SLE (systemic lupus erythematosus related syndrome) M32.9
[2021-06-06 11:13] VITALS: BP 125/79; PULSE 73; RESP 20; TEMP 36.6; O2SAT 98
--- NOTE | 2021-06-06 11:50 | PM.PN ---
Subjective Subjective: Interval history: Denies any chest pain she is feeling much better yesterday she was very upset as her brother . Vitals/I&O/Wt Last Vital Signs Temp 97.9 F 06/06/21 11:13 Pulse 73 06/06/21 11:13 Resp 20 H 06/06/21 11:13 BP 125/79 06/06/21 11:13 Pulse Ox 98 06/06/21 11:13 06/05/21 06/06/21 06/06/21 22:59 06:59 14:59 Intake Total 360 / 360 250 / 610 0 / 0 Balance 360 / 360 250 / 610 0 / 0 Weight last 48 hrs Weight 138 lb Physical Exam Narrative: EXAM NARRATIVE: GENERAL: Patient is alert, awake and oriented x3. NECK: No jugular vein distension. HEENT: No cyanosis. No icterus. No pallor. HEART: Regular S1 and S2. No murmur, rub or gallop. LUNGS: Clear to auscultate bilaterally. ABDOMEN: Soft, nontender and nondistended. Positive bowel sounds. No guarding, rebound or tenderness. CENTRAL NERVOUS SYSTEM: Grossly nonfocal. EXTREMITIES: Lower extremities without edema bilaterally. Data : 06/04/21 20:20 06/04/21 20:20 A&P Assessment and plan (1) Stress-induced cardiomyopathy: Recommend optimization of medicine she is already on beta-christina ARB statin I will add isosorbide mononitrate and Plavix. Continue Plavix for 1 year Continue above defined treatment most likely discharge today Status: Acute (2) HFrEF (heart failure with reduced ejection fraction): Well compensated. Continue current regimen as above. Patient will be discharged on 20 mg of Lasix and 10 mg of potassium on as-needed basis. Status: Acute Additional A&P Information At this point she appeared to be well compensated however in case of worsening of shortness of breath she may can be diuresed. We recommend giving 20 mg of p.o. Lasix on daily basis along with 10 mEq of potassium. Attestations Medical Necessity Statement*: Patient can be discharged today from a cardiovascular perspective if okay with primary medical Coding Level of Care Code Established Pt Acute Chief Librarian Work With Blind for g Fwd Patient Type Established History Detailed Exam Detailed Medical Decision Making Moderate Complexity Diagnoses Stress-induced cardiomyopathy I51.81 HFrEF (heart failure with reduced ejection fraction) I50.20
[2021-06-06 12:00] VITALS: BP 92/55; PULSE 84; RESP 16; TEMP 36.4; O2SAT 96
--- NOTE | 2021-06-06 12:43 | PC.NURSE ---
Discharge instructions were given and reviewed with patient. Verbalized an understanding, no questions voiced. Medications delivered to bedside. IV removed, tip intact. here to take patient home. Ambulated to exit with . All belongings sent with patient.
== END 2021-06-06 12:43 | disposition home or self-care (01) ==
LOC: ER 19:48 → CSU 06-05 03:12
PROVIDERS: Admitting Provider Student in an Organized Health Care Education/Training Program; Emergency Provider Emergency Medicine; PCP Internal Medicine; Visit Provider Student in an Organized Health Care Education/Training Program
DX: I51.81 Takotsubo syndrome (principal); I50.20 Unspecified systolic (congestive) heart failure; M32.9 Systemic lupus erythematosus, unspecified; I21.4 Non-ST elevation (NSTEMI) myocardial infarction; Z82.49 Family history of ischemic heart disease and other diseases of the circulatory system; Z79.82 Long term (current) use of aspirin
CPT/HCPCS: 71045; 80053; 84484; 85025; 85610; 93005; 93308; 96372; 96374; 96375; 99285; G0378; J1650; J2270; J2405

== ENCOUNTER 2021-06-08 05:59 | Observation (INO) | payer OTHER, SELFPAY ==
[2021-06-08] VITALS (31 sets, daily range): BP systolic 80–145; BP diastolic 54–105; PULSE 67–88; RESP 16–24; TEMP 36.6–36.8; O2SAT 94–99; BMI 22.2
--- NOTE | 2021-06-08 06:23 | ECG_ITS ---
[facility] ED Test Date: 2021-06-08 Pat Name: Becky Nichols Department: Room: Gender: Female Dam Attendant: : 1965 Requested By: Jake Jackman Order Number: [id number] Alvin MD: Kayla Chavira M.D. Measurements Intervals [place] Rate: 87 P: 71 VA: 138 QRS: 65 QRSD: 89 T: 227 QT: 413 QTc: 499 Interpretive Statements SINUS RHYTHM ST DEVIATION AND MARKED T-WAVE ABNORMALITY, CONSIDER ANTEROLATERAL ISCHEMIA [-0.5+ mV T WAVE IN I/aVL/V3-V6] ST DEVIATION AND MODERATE T-WAVE ABNORMALITY, CONSIDER INFERIOR ISCHEMIA [-0.1+ mV T WAVE IN II/aVF] INTERPRETATION BASED ON A DEFAULT AGE OF 40 YEARS Compared to ECG 06/05/2021 17:28:51 T-wave abnormality now present Possible ischemia now present Left-axis deviation no longer present Myocardial infarct finding no longer present Electronically Signed On 06-11-2021 9:56:14 CDT by Kayla Chavira M.D. [id number]
--- NOTE | 2021-06-08 06:23 | XRR_ITS ---
PROCEDURE INFORMATION: Exam: XR Chest Exam date and time: 06/08/2021 6:23 AM Age: 55 years old Clinical indication: Pain; Other: Allover; Patient HX: Chest pressure, heaviness off and on since midnight; Additional info: Chest pain TECHNIQUE: Imaging protocol: XR of the chest. Views: 1 view. COMPARISON: CR XR chest 1V portable [id number] 06/04/2021 7:43 PM FINDINGS: Lungs: Emphysema; Lungs are well aerated without a focal area of consolidation. Pleural spaces: Unremarkable. No pleural effusion. No pneumothorax. Heart/Mediastinum: Unremarkable. No cardiomegaly. Bones/joints: Unremarkable. XR/XR chest 1V portable [id number] IMPRESSION: Lungs are well aerated without a focal area of consolidation.
--- NOTE | 2021-06-08 06:24 | ED_ITS ---
HPI - Arrhythmia/Palpitations General: Chief Complaint: Arrhythmia/Palpitations Stated Complaint: Chest Palpatations\Nausea Time Seen by Provider: 06/08/21 06:12 History of Present Illness: HPI narrative: 55-year-old female presents to the emergency room with complaints of chest discomfort. [facility] ED PFSH: Medical History Sjogrens syndrome SLE (systemic lupus erythematosus related syndrome) SLE (systemic lupus erythematosus) Stress-induced cardiomyopathy Surgical History History of cataract extraction History of hysterectomy Family History Mother CAD (coronary artery disease) OR at age 50 Other Cancer Diabetes Family history of premature coronary artery disease Social History Smoking and tobacco status: never smoked Alcohol intake: never History of recent travel: No Course Vital Signs: Vital signs: Vital Signs Temperature 98.1 F 06/08/21 06:06 Pulse Rate 88 06/08/21 06:06 Respiratory Rate 18 06/08/21 06:06 Blood Pressure 145/87 06/08/21 06:06 Pulse Oximetry 97 06/08/21 06:06 Discharge Plan Discharge Prescriptions: No Action losartan 25 mg tablet 12.5 mg PO DAILY RF: 0 triamcinolone acetonide 0.1 % cream 1 applic TOPICAL DAILY@07 RF: 0 ropinirole 0.5 mg tablet 0.5 mg PO BEDTIME PRN (Reason: Restless Leg(S)) RF: 0 Myrbetriq 25 mg tablet extended release 24 hr 50 mg PO DAILY@07 RF: 0 venlafaxine [Effexor XR] 37.5 mg capsule,extended release 24hr 37.5 mg PO DAILY RF: 0 hydroxychloroquine [Plaquenil] 200 mg tablet 200 mg PO BID Qty: 180 RF: 1 aspirin 81 mg tablet,delayed release (DR/EC) 81 mg PO DAILY RF: 0 vitamin B complex Tablet 1 tab PO DAILY RF: 0 zinc 50 mg Tablet 50 mg PO DAILY RF: 0 CoQ-10 100 mg Capsule 100 mg PO DAILY RF: 0 Vitamin D3 50 mcg (2,000 unit) Tablet 50 mcg PO DAILY RF: 0 metoprolol succinate 25 mg tablet extended release 24 hr 12.5 mg PO DAILY RF: 0 aspirin 81 mg Tablet,Delayed Release (Dr/Ec) 81 mg PO DAILY Qty: 90 RF: 3 clopidogrel 75 mg tablet 75 mg PO DAILY Qty: 90 RF: 4 isosorbide mononitrate 10 mg tablet 10 mg PO BID Qty: 60 RF: 3 nitroglycerin 0.4 mg tablet, sublingual 0.4 mg sublingual Q5M Qty: 30 RF: 3 furosemide 20 mg Tablet 20 mg PO DAILY@0800 PRN (Reason: SOB and swelling) Qty: 10 RF: 0 Coding Level of Care Code ED Prescription Clerk Lenses for Mike Gama
--- NOTE | 2021-06-08 06:32 | ED_ITS ---
HPI - Chest Pain General: Chief Complaint: Arrhythmia/Palpitations Stated Complaint: Chest Palpatations\Nausea Time Seen by Provider: 06/08/21 06:12 History of Present Illness: HPI narrative: 55-year-old female presents to the emergency room with complaints of chest discomfort. she was recently hospitalized with an episode of chest pain. She had a EF on echocardiogram of 35%. In October 2020 she had a angiogram did not show any obstructive coronary artery disease. She was discharged home 3 days ago on isosorbide 10 mg twice a day. She states that when she takes it her blood pressure decreases significantly. MD complaint: chest pain, chest heaviness and chest discomfort Pertinent past history: other Onset (ago): hour(s) Timing of current episode: episodic Prior episodes: Yes Onset: during rest Pain location: left chest Pain radiation: none Severity: mild Quality: tightness and heaviness Relieving factors: nothing Exacerbating factors: nothing Associated symptoms: Deny abdominal pain, diaphoresis, dyspnea, fever(s), leg edema, nausea, palpitations, sense of impending doom, syncope or vomiting Treatment prior to arrival: nitroglycerin (Isosorbide mononitrate) Review of Systems Const: Denies: fever(s) or diaphoresis ENMT: Denies: throat pain, ear or mastoid pain, nasal discharge or nasal congestion Card: Denies: palpitations or syncope Resp: Denies: dyspnea GI: Denies: abdominal pain, nausea or vomiting : Denies: flank pain, difficulty voiding, dysuria, urinary frequency or urinary urgency Skin/Breast: Denies: rash or pruritus PFS ED PFSH: Medical History Acute HFrEF (heart failure with reduced ejection fraction) High risk medication use Sjogrens syndrome SLE (systemic lupus erythematosus related syndrome) SLE (systemic lupus erythematosus) Stress-induced cardiomyopathy Surgical History History of cataract extraction History of hysterectomy Family History Mother CAD (coronary artery disease) PR at age 50 Other Cancer Diabetes Family history of premature coronary artery disease Social History Smoking and tobacco status: never smoked Alcohol intake: never History of recent travel: No Physical Exam Const: COMMON NORMALS: no acute distress GENERAL APPEARANCE: cooperative and comfortable ORIENTATION/CONSCIOUSNESS: Yes awake, Yes oriented to person, Yes oriented to place and Yes oriented to time HENMT: COMMON NORMALS: normocephalic, atraumatic and hearing grossly normal bilaterally HEAD & SCALP: normocephalic and atraumatic Neck/C-Spine: COMMON NORMALS: no JVD Resp: COMMON NORMALS: normal respiratory effort, No retractions, No use of accessory muscles and clear to auscultation bilaterally AUSCULTATION: clear to auscultation bilaterally Cardio: COMMON NORMALS: no JVD, regular rate, regular rhythm and No murmurs present (Cardio) RATE: regular rate RHYTHM: regular rhythm GI: COMMON NORMALS: Soft to palpation and No hepatosplenomegaly present AUSCULTATION: Yes normoactive bowel sounds PALPATION: Yes Soft to palpation, No Tenderness to palpation present (GI), No Guarding due to palpation present (GI) and Yes No hepatosplenomegaly present Extremity: COMMON NORMALS: normal to inspection, capillary refill normal, no clubbing, cyanosis or edema, no calf tenderness and no pedal edema Neuro: SENSORIUM/ORIENTATION: Yes oriented to person, Yes oriented to place and Yes oriented to time Skin: COMMON NORMALS: no rashes or lesions noted GENERAL SKIN EXAM: no rashes or lesions noted Course Vital Signs: Vital signs: Vital Signs Temperature 98.3 F 06/09/21 04:15 Pulse Rate 62 06/09/21 05:57 Respiratory Rate 24 H 06/09/21 04:15 Blood Pressure 116/78 06/09/21 04:15 Pulse Oximetry 96 06/09/21 04:15 MDM - Chest Pain MDM Narrative: Medical decision making narrative: Patient had relief of chest discomfort with nitro but it was still remaining. To switch from Nitropaste to drip and resolve the pain completely. She has a history of Takotsubo syndrome. Her last echocardiogram showed 35% EF. She is resolving with nitro. But unable to take her oral nitrates because of hypotension. Patient will be admitted. Discussed with Dr. Mazariegos he will accept patient on his services. Lab Data: Labs: Lab Results 06/08/21 06/08/21 06/08/21 Range/Units 06:15 06:15 06:15 WBC 2.9 L (4.0-10.0) 10^3/ uL RBC 4.40 (4.1-5.3) 10^6/u L Hgb 14.4 (11.5-15.3) g/dL Hct 41.7 (37.0-47.0) % MCV 94.8 (81-99) fL MCH 32.7 (28.0-34.0) pg MCHC 34.5 (30.0-36.0) g/dL RDW 11.4 L (12.1-15.1) % Plt Count 259 (130-400) 10^3/c mm MPV 9.6 (7.4-10.4) fL Neut % (Auto) 69.4 % Lymph % (Auto) 19.0 % [place] % (Auto) 11.0 % Eos % (Auto) 0.3 % Baso % (Auto) 0.3 % Neut # (Auto) 2.01 (1.8-7.7) 10^3/u L Lymph # (Auto) 0.6 L (0.8-4.8) 10^3/u L [place] # (Auto) 0.3 (0.2-0.9) 10^3/u L Eos # (Auto) 0.0 (0.0-0.8) 10^3/u L Baso # (Auto) 0.0 (0.0-0.1) 10^3/u L Nucleated RBC % (a uto) 0 % Nucleated RBCs # 0.0 /100WBC Sodium 139 (136-145) mmol/L Potassium 3.9 (3.5-5.1) mmol/L Chloride 107 (98-107) mmol/L Carbon Dioxide 23 (22-29) mmol/L Anion Gap 12.9 (5-19) BUN 9 (6-20) mg/dL Creatinine 0.8 (0.5-0.9) mg/dL GFR Calculation 73.9 L (90-130) mL/min Glucose 110 (65-115) mg/dL Calculated Osmolal ity 287 (285-295) mOsm/k g Calcium 8.7 (8.5-10.5) mg/dL Total Bilirubin 0.3 (0.15-1.2) mg/dL AST 79 H (0-32) U/L ALT 78 H (0-33) U/L Alkaline Phosphata se 97 (35-105) IU/L Creatine Kinase 62 (26-192) U/L Troponin T Baselin e 16 H (0-10) ng/L Troponin T 120 Min [place] (0-10) ng/L Delta Troponin T (0-10) ABS# Troponin T Hi Sens 6Hr (0-10) ng/L Troponin T Hi Sens 6Hr Delta (0-12) ng/L Total Protein 6.5 L (6.6-8.7) g/dL Albumin 4.0 (3.5-5.2) g/dL Globulin 2.5 (1.3-4.6) g/dL 06/08/21 06/08/21 Range/Units 08:38 12:27 WBC (4.0-10.0) 10^3/ uL RBC (4.1-5.3) 10^6/u L Hgb (11.5-15.3) g/dL Hct (37.0-47.0) % MCV (81-99) fL MCH (28.0-34.0) pg MCHC (30.0-36.0) g/dL RDW (12.1-15.1) % Plt Count (130-400) 10^3/c mm MPV (7.4-10.4) fL Neut % (Auto) % Lymph % (Auto) % [place] % (Auto) % Eos % (Auto) % Baso % (Auto) % Neut # (Auto) (1.8-7.7) 10^3/u L Lymph # (Auto) (0.8-4.8) 10^3/u L [place] # (Auto) (0.2-0.9) 10^3/u L Eos # (Auto) (0.0-0.8) 10^3/u L Baso # (Auto) (0.0-0.1) 10^3/u L Nucleated RBC % (a uto) % Nucleated RBCs # /100WBC Sodium (136-145) mmol/L Potassium (3.5-5.1) mmol/L Chloride (98-107) mmol/L Carbon Dioxide (22-29) mmol/L Anion Gap (5-19) BUN (6-20) mg/dL Creatinine (0.5-0.9) mg/dL GFR Calculation (90-130) mL/min Glucose (65-115) mg/dL Calculated Osmolal ity (285-295) mOsm/k g Calcium (8.5-10.5) mg/dL Total Bilirubin (0.15-1.2) mg/dL AST (0-32) U/L ALT (0-33) U/L Alkaline Phosphata se (35-105) IU/L Creatine Kinase (26-192) U/L Troponin T Baselin e (0-10) ng/L Troponin T 120 Min [place] 14.89 H (0-10) ng/L Delta Troponin T -1.11 L (0-10) ABS# Troponin T Hi Sens 6Hr 14.31 H (0-10) ng/L Troponin T Hi Sens 6Hr Delta -1.69 L (0-12) ng/L Total Protein (6.6-8.7) g/dL Albumin (3.5-5.2) g/dL Globulin (1.3-4.6) g/dL EKG Data^: EKG 1: EKG interpretation date: 06/08/21 EKG interpretation time: 06:09 Prior EKG tracings: available for review Interpretation: T wave inversion 2 3 aVF and V1 through 6 unchanged from prev ious EKG 06/05/2021. No acute ST changes noted otherwise sinus rhythm with a rate of 87 normal TN and QT intervals Discharge Plan Discharge Patient Disposition: Admitted As Inpatient Admit Provider: Raj Gibson Clinical Impression: Stress-induced cardiomyopathy, HFrEF (heart failure with reduced ejection fraction), SLE (systemic lupus erythematosus related syndrome), Chest pain Condition: Stable Coding Level of Care Code ED Deicer Repairer Electric for Chg Fwd Exam Comprehensive
[2021-06-08 06:37] LABS: Basophils % 0.3 %; Eosinophils % 0.3 %; Hematocrit 41.7 % (37.0-47.0); Hemoglobin 14.4 g/dL (11.5-15.3); Lymphocytes # 0.6 10^3/uL (0.8-4.8); Mean Corpuscular HGB Conc 34.5 g/dL (30.0-36.0); Mean Corpuscular Hemoglobin 32.7 pg (28.0-34.0); Mean Corpuscular Volume 94.8 fL (81-99); Mean Platelet Volume 9.6 fL (7.4-10.4); Monocytes # 0.3 10^3/uL (0.2-0.9); Neutrophils # 2.01 10^3/uL (1.8-7.7); Neutrophils % 69.4 %; Nucleated Red Blood Cells % 0 %; Platelet Count 259 10^3/cmm (130-400); Red Cell Distribution Width 11.4 % (12.1-15.1); White Blood Count 2.9 10^3/uL (4.0-10.0)
--- NOTE | 2021-06-08 06:43 | PC.NURSE ---
Received report assumed , no changes noted from report. Continue to monitor.
--- NOTE | 2021-06-08 06:46 | PC.NURSE ---
Report to NATALIIA Hong
[2021-06-08 06:49] LABS: Alanine Aminotransferase 78 U/L (0-33); Alkaline Phosphatase 97 IU/L (35-105); Anion Gap 12.9 (5-19); Aspartate Amino Transferase 79 U/L (0-32); Blood Urea Nitrogen 9 mg/dL (6-20); Calcium 8.7 mg/dL (8.5-10.5); Carbon Dioxide 23 mmol/L (22-29); Chloride 107 mmol/L (98-107); Creatine Phosphokinase 62 U/L (26-192); Globulin 2.5 g/dL (1.3-4.6); Glomerular Filtration Rate 73.9 mL/min (90-130); Glucose 110 mg/dL (65-115); Osmolality Calculated 287 mOsm/kg (285-295); Potassium 3.9 mmol/L (3.5-5.1); Sodium 139 mmol/L (136-145); Total Bilirubin 0.3 mg/dL (0.15-1.2); Total Protein 6.5 g/dL (6.6-8.7)
[2021-06-08 06:50] LABS: Troponin(5th) Baseline 16 ng/L (0-10)
--- NOTE | 2021-06-08 08:23 | ECG_ITS ---
[facility] Test Date: 2021-06-08 Pat Name: Becky Nichols Department: Room: Gender: Female Shipping And Receiving Clerk: : 1965 Requested By: Jake Jackman Order Number: [id number] Reading MD: VERONA STEELE Measurements Intervals [place] Rate: 66 P: 5 DE: 121 QRS: -14 QRSD: 97 T: 231 QT: 460 QTc: 484 Interpretive Statements SINUS RHYTHM ST DEVIATION AND MARKED T-WAVE ABNORMALITY, CONSIDER ANTEROLATERAL ISCHEMIA [-0.5+ mV T WAVE IN I/aVL/V3-V6] ST DEVIATION AND MODERATE T-WAVE ABNORMALITY, CONSIDER INFERIOR ISCHEMIA [-0.1+ mV T WAVE IN II/aVF] Compared to ECG 06/08/2021 06:09:48 No significant changes Electronically Signed On 06-08-2021 23:37:11 CDT by VERONA STEELE [id number]
[2021-06-08] MEDS: ondansetron 2 mg/ML SDV 2 mL 4 MG IVP (08:40)
[2021-06-08] MEDS: morphine 4 mg/mL SDV 1 mL IVP (08:43)
[2021-06-08] MEDS: nitroglycerin 1 gm/inch oint Pkt 1 INCH TOPICAL (08:48)
[2021-06-08 08:59] LABS: Troponin 5 2HR 14.89 ng/L (0-10)
[2021-06-08 09:02] LABS: Troponin 5 2HR Delta -1.11 ABS# (0-10)
[2021-06-08] MEDS: nitroglycerin drip 50 MG/250 ML PREMIX IV (09:18)
--- NOTE | 2021-06-08 12:23 | ECG_ITS ---
[facility] ED Test Date: 2021-06-08 Pat Name: Becky Nichols Department: Room: Gender: Female [place]: : 1965 Requested By: Jake Jackman Order Number: [id number] Alvin MD: Kayla Chavira M.D. Measurements Intervals Terrell Rate: 78 P: 41 PA: 125 QRS: -27 QRSD: 88 T: 231 QT: 429 QTc: 490 Interpretive Statements SINUS RHYTHM BORDERLINE LEFT AXIS DEVIATION [QRS AXIS < -20] ST DEVIATION AND MARKED T-WAVE ABNORMALITY, CONSIDER ANTEROLATERAL ISCHEMIA [-0.5+ mV T WAVE IN I/aVL/V3-V6] ST DEVIATION AND MODERATE T-WAVE ABNORMALITY, CONSIDER INFERIOR ISCHEMIA [-0.1+ mV T WAVE IN II/aVF] Compared to ECG 06/08/2021 08:51:35 No significant changes Electronically Signed On 06-11-2021 12:41:37 CDT by Kayla Chavira M.D. [id number]
[2021-06-08 12:59] LABS: Troponin 5 6HR 14.31 ng/L (0-10)
[2021-06-08 13:03] LABS: Troponin 5 6HR Delta -1.69 ng/L (0-12)
--- NOTE | 2021-06-08 19:03 | PM.HP ---
Providers/Chief Complaint Admitting Physician: Raj Gibson MD Primary Care Provider: Aurelia Ambrocio MD Chief Complaint: Chest Palpatations\Nausea History of Present Illness Becky Nichols is a 55 year old female past medical history significant for stress-induced cardiomyopathy, SLE congestive heart failure recently going through a stressful time was admitted with stress-induced cardiomyopathy few days ago and discharged home yesterday after optimization of medicine. Echocardiogram during last admission showed ejection fraction of 35%. Patient's brother day before yesterday due to cold complications she has been thinking a lot about the family and could not sleep last night this morning she woke up with similar kind of chest pain as when she was admitted few days ago. She decided come to the ER. Twelve-lead EKG shows anterolateral T wave inversion without any change from the prior exams. Cardiac markers remains negative she was ruled out for acute coronary syndrome. Chest pain relieved by nitroglycerin but came back. She was started on IV nitro drip. She is being admitted for 24-hour observation. I been asked to assist in her care. Review of Systems Const: Denies: fever(s) or diaphoresis Eyes: Denies: photophobia ENMT: Denies: throat pain, enlarged tonsils, ear or mastoid pain, nasal discharge or nasal congestion Card: Denies: palpitations or syncope Resp: Denies: dyspnea GI: Denies: abdominal pain, nausea or vomiting : Denies: flank pain, difficulty voiding, dysuria, urinary frequency or urinary urgency Musc: Denies: joint warmth Skin/Breast: Denies: rash or pruritus Medications/Allergies Home Medications Medication Instructions Recorded Confirmed Last Taken Type ropinirole 0.5 mg tablet 0.5 mg PO BEDTIME PRN 03/12/20 06/08/21 01/08/21 History triamcinolone acetonide 0.1 % 1 applic TOPICAL DAILY@07 03/12/20 06/08/21 06/04/21 History topical cream mirabegron 25 mg tablet,extended 50 mg PO DAILY@07 tab 11/10/20 06/08/21 06/07/21 History release 24 hr venlafaxine 37.5 mg 37.5 mg PO DAILY 12/11/20 06/08/21 06/07/21 History capsule,extended release 24 hr losartan 25 mg tablet 12.5 mg PO DAILY tab 04/10/21 06/08/21 06/07/21 History cholecalciferol (vitamin D3) 50 mcg PO DAILY 06/04/21 06/08/21 06/07/21 History [Vitamin D3] coenzyme Q10 [CoQ-10] 100 mg PO DAILY 06/04/21 06/08/21 06/07/21 History hydroxychloroquine 200 mg tablet 200 mg PO BID #180 tab 06/04/21 06/08/21 06/07/21 Rx metoprolol succinate 12.5 mg PO DAILY 06/04/21 06/08/21 06/07/21 History vitamin B complex 1 tab PO DAILY 06/04/21 06/08/21 06/07/21 History zinc 50 mg PO DAILY 06/04/21 06/08/21 06/07/21 History aspirin 81 mg PO DAILY #90 tab 06/05/21 06/08/21 06/07/21 Rx clopidogrel 75 mg PO DAILY #90 tab 06/05/21 06/08/21 06/07/21 Rx isosorbide mononitrate 10 mg PO BID #60 tab 06/05/21 06/08/21 06/07/21 Rx nitroglycerin 0.4 mg SUBLINGUAL Q5M #30 tab 06/05/21 06/08/21 06/08/21 Rx furosemide 20 mg PO DAILY@0800 PRN #10 tab 06/06/21 06/08/21 Unknown Rx Allergies Allergy/AdvReac Type Severity Reaction Status Date / Time No Known Allergies Allergy Verified 06/08/21 06:10 PFSH Acute PFSH: Medical History Acute HFrEF (heart failure with reduced ejection fraction) High risk medication use Sjogrens syndrome SLE (systemic lupus erythematosus related syndrome) SLE (systemic lupus erythematosus) Stress-induced cardiomyopathy Surgical History History of cataract extraction History of hysterectomy Family History Mother CAD (coronary artery disease) [place] at age 50 Other Cancer Diabetes Family history of premature coronary artery disease Social History Smoking and tobacco status: never smoked Alcohol intake: never History of recent travel: No Vitals/I&O/Wt Last Vital Signs Temp 98.1 F 06/08/21 06:06 Pulse 81 06/08/21 17:31 Resp 16 06/08/21 16:27 BP 108/62 06/08/21 17:31 Pulse Ox 99 06/08/21 17:31 Weight last 48 hrs Weight 138 lb Physical Exam Narrative: EXAM NARRATIVE: GENERAL: Patient is alert, awake and oriented x3. NECK: No jugular vein distension. HEENT: No cyanosis. No icterus. No pallor. HEART: Regular S1 and S2. No murmur, rub or gallop. LUNGS: Clear to auscultate bilaterally. ABDOMEN: Soft, nontender and nondistended. Positive bowel sounds. No guarding, rebound or tenderness. CENTRAL NERVOUS SYSTEM: Grossly nonfocal. EXTREMITIES: Lower extremities without edema bilaterally. Data : 06/08/21 06:15 06/09/21 03:46 A&P Assessment and plan (1) Stress-induced cardiomyopathy: Patient has stress-induced cardiomyopathy she is going through hard times. She has been ruled out for acute coronary syndrome this time. We will continue to manage her medically as she had angiogram done few months ago which did not show any significant disease. Continue aspirin statin beta-christina IV nitroglycerin and antiplatelet. I will add antianxiety medicine. Status: Acute (2) HFrEF (heart failure with reduced ejection fraction): Well compensated continue current regimen Status: Acute (3) SLE (systemic lupus erythematosus related syndrome): Continue current regimen. 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
[2021-06-08] MEDS: escitalopram 10 mg Tablet PO (21:16)
[2021-06-08] MEDS: ALPRAZolam 0.5 mg Tablet PO (21:16)
--- NOTE | 2021-06-08 23:54 | PC.NURSE ---
NURSING NOTE: PT C/O HEADACHE = 05/16. PLACED CALL TO DR. STEELE AT THIS TIME AND RECEIVED ORDERS FOR TYLENOL 650MG Q4 PRN HEAD PAIN AND STOP NITROGLYCERIN GTT NOW. MEDICATIONS GIVEN ORDERED. ALL VS AND ASSESSMENTS CHARTED.
[2021-06-09] MEDS: acetaminophen 325 mg Tablet 650 MG PO (00:20)
[2021-06-09 04:15] VITALS: BP 116/78; PULSE 78; RESP 24; TEMP 36.8; O2SAT 96
[2021-06-09 04:47] LABS: Anion Gap 12.2 (5-19); Blood Urea Nitrogen 13 mg/dL (6-20); Calcium 8.8 mg/dL (8.5-10.5); Carbon Dioxide 25 mmol/L (22-29); Chloride 103 mmol/L (98-107); Glomerular Filtration Rate 64.5 mL/min (90-130); Glucose 82 mg/dL (65-115); Osmolality Calculated 281 mOsm/kg (285-295); Potassium 4.2 mmol/L (3.5-5.1); Sodium 136 mmol/L (136-145)
[2021-06-09 05:57] VITALS: PULSE 62
[2021-06-09 08:00] VITALS: BP 110/67; PULSE 75; RESP 16; TEMP 36.6; O2SAT 94
[2021-06-09] MEDS: cyanocobalamin 1,000 mcg Tablet 2000 MCG PO (08:47)
[2021-06-09] MEDS: metoprolol succinate ER (24 HR) 25 mg Tablet 12.5 MG PO (08:47)
[2021-06-09] MEDS: zinc gluconate 50 mg Tablet PO (08:48)
[2021-06-09] MEDS: aspirin 81 mg EC Tablet PO (08:48)
[2021-06-09] MEDS: clopidogrel 75 mg Tablet PO (08:48)
[2021-06-09] MEDS: triamcinolone 0.1% cream 15 gm 1 APPLIC TOPICAL (08:58)
--- NOTE | 2021-06-09 09:31 | P.DS_ITS ---
Discharge Providers Date of Admission: 06/08/21 18:08 Date of Discharge: June 09, 2021 Attending Provider at Admission: Raj Gibson MD Attending Provider at Discharge: Raj Gibson MD Primary Care Provider: Aurelia Ambrocio MD Diagnoses at Discharge Discharge Diagnosis (1) Stress-induced cardiomyopathy: Status: Acute (2) HFrEF (heart failure with reduced ejection fraction): Status: Acute (3) SLE (systemic lupus erythematosus related syndrome): Status: Acute Reason for Visit Reason for Visit: Chest Palpatations\Nausea Hospital Course Hospital Course 55-year-old female past medical history significant for stress-induced cardiomyopathy proven with angiogram few months ago, SLE, hypertension, severely depressed LV function who was discharged 3 days ago from the hospital with similar problem when she presented with non-ST elevation CA and stress-induced cardiomyopathy came back to the ER with chest pain this time there was no other significant EKG changes or cardiac markers elevation. Patient is going through a stressful time due to demise of her brother. Patient was kept overnight. No further chest pain occurred. She was given antianxiety she felt much better and think that she is doing fine from cardiac perspective. She is on optimal medical regimen. At this point I do not think though that she needs invasive therapy or not she is interested in it. She would not like to be catheter again and my suspicion of obstructive coronary artery disease is very low therefore I think she will be treated medically as it is. Advised to follow-up with primary care physician for antidepressant or anxiety anxiety medicine. We will follow her up in the cardiology clinic. Physical Exam Narrative: EXAM NARRATIVE: GENERAL: Patient is alert, awake and oriented x3. NECK: No jugular vein distension. HEENT: No cyanosis. No icterus. No pallor. HEART: Regular S1 and S2. No murmur, rub or gallop. LUNGS: Clear to auscultate bilaterally. ABDOMEN: Soft, nontender and nondistended. Positive bowel sounds. No guarding, rebound or tenderness. CENTRAL NERVOUS SYSTEM: Grossly nonfocal. EXTREMITIES: Lower extremities without edema bilaterally. Discharge Data Data Completed and Pending: Completed Studies During Hospitalization Category Date Time Status XR chest 1V shailesh ble [id number] Stat Exams 06/08/21 06:23 Completed Labs from last 24 hours 06/09/21 06/08/21 03:46 12:27 Sodium 136 Potassium 4.2 Chloride 103 Carbon Dioxide 25 Anion Gap 12.2 BUN 13 Creatinine 0.9 GFR Calculation 64.5 L Glucose 82 Calculated Osmolal ity 281 L Calcium 8.8 Troponin T Hi Sens 6Hr 14.31 H Troponin T Hi Sens 6Hr Delta -1.69 L Vitals: Last Vital Signs Temp 98.3 F 06/09/21 04:15 Pulse 62 06/09/21 05:57 Resp 24 H 06/09/21 04:15 BP 116/78 06/09/21 04:15 Pulse Ox 96 06/09/21 04:15 Discharge Plan Discharge Patient Disposition: Home Condition: Stable Prescriptions: New Restoril 15 mg capsule 15 mg PO PRN Qty: 14 RF: 0 Continued losartan 25 mg tablet 12.5 mg PO DAILY RF: 0 triamcinolone acetonide 0.1 % cream 1 applic TOPICAL DAILY@07 RF: 0 ropinirole 0.5 mg tablet 0.5 mg PO BEDTIME PRN (Reason: Restless Leg(S)) RF: 0 Myrbetriq 25 mg tablet extended release 24 hr 50 mg PO DAILY@07 RF: 0 venlafaxine [Effexor XR] 37.5 mg capsule,extended release 24hr 37.5 mg PO DAILY RF: 0 hydroxychloroquine [Plaquenil] 200 mg tablet 200 mg PO BID Qty: 180 RF: 1 vitamin B complex Tablet 1 tab PO DAILY RF: 0 zinc 50 mg Tablet 50 mg PO DAILY RF: 0 coenzyme Q10 [CoQ-10] 100 mg Capsule 100 mg PO DAILY RF: 0 cholecalciferol (vitamin D3) [Vitamin D3] 50 mcg (2,000 unit) Tablet 50 mcg PO DAILY RF: 0 metoprolol succinate 25 mg tablet extended release 24 hr 12.5 mg PO DAILY RF: 0 aspirin 81 mg Tablet,Delayed Release (Dr/Ec) 81 mg PO DAILY Qty: 90 RF: 3 clopidogrel 75 mg tablet 75 mg PO DAILY Qty: 90 RF: 4 isosorbide mononitrate 10 mg tablet 10 mg PO BID Qty: 60 RF: 3 nitroglycerin 0.4 mg tablet, sublingual 0.4 mg sublingual Q5M Qty: 30 RF: 3 furosemide 20 mg Tablet 20 mg PO DAILY@0800 PRN (Reason: SOB and swelling) Qty: 10 RF: 0 Discharge Orders: Discharge Order (Routine); Ordered 06/09/21 Ordered By: Raj Gibson Referrals: Varsha Scott FNP [Nurse Practitioner] - 4-7 days (Please follow-up with Varsha Scott on at 1:15P.M. If you have any questions or need to reschedule. Please call ) Discharge Diet: Cardiac Discharge Activity: Increase activity as tolerated Patient Instructions: Chest Pain Stoplight, Opioid Safety Discharge Attestations Time Spent in Discharge Care*: less than 30 min Status at Discharge: Cognitive status at discharge: cognitively intact , Behavioral status at discharge: cooperative , Quality Metrics Clinical Quality Measures During this hospital stay, did patient experience: None Coding Level of Care Code Established Pt Acute Chg FW DC note Patient Type Established History Detailed Exam Detailed Medical Decision Making Moderate Complexity Diagnoses Stress-induced cardiomyopathy I51.81 HFrEF (heart failure with reduced ejection fraction) I50.20 SLE (systemic lupus erythematosus related syndrome) M32.9
--- NOTE | 2021-06-09 10:19 | PC.CHAP ---
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 instructor visit [] Patient/Family/Request visit [] Outpatient visit [] Follow-up visit [] Physician referral [] Code/Alert [x] Routine visit [] Staff referral [] Actively dying [] Patient sleeping [] Family support [] [] Out of room [] Palliative care [] [] Receiving care in room [] Pre-surgical visit [] Trauma [] Long length of stay [] ICU visit [] Other: Relational/Emotional Strength [] Patient feels connected with others/family/visitors/staff [] Distress [] Loneliness/isolation [] Abandonment Spirituality of Patient [x] Person of Raquel x[] Attends Mu-Ism of their Raquel [x] Believes in Prayer [] Reads Bible or Shinto materials [] There are Spiritual issues to be addressed Figurine Maker Interventions [x] Prayer [x] Active listening [x] Non-anxious presence [x] Spiritual/emotional support [] Crisis/trauma care [] Spiritual counseling [] Bereavement support [] Provided bereavement packet [] Provided Bible/devotional materials [] Provided toy/stuffed animal, coloring book to patient or family member [] Provided Communion [] Anointing/Larimer [] Salvation [x] Completed spiritual assessment [] Other: Impact on Illness or Injury [] Angry [] Fearful [] Anxious [] Often cries [] Exhaustion [] Unable to work [] Unable to attend zoroastrian [] Unable to walk/stand [] Unable to read [] Unable to drive [] Unable to eat/drink [] Unable to sleep [] Unable to be with family [] Patient intubated [] Other: Summary stress.... personal issues... being discharged today... Time spent with patient 10 min
[2021-06-09 10:37] VITALS: BP 110/67; PULSE 75; RESP 16; TEMP 36.6; O2SAT 94
--- NOTE | 2021-06-09 10:42 | PC.NURSE ---
pt education provided, pt ambulated and escorted out of the building. No question or concerns. VS stable
== END 2021-06-09 10:43 | disposition home or self-care (01) ==
LOC: ER 06:24 → ER IP 16:48 → CSU 06-09 05:22 → ER IP 06-09 05:22
PROVIDERS: Admitting Provider Internal Medicine Cardiovascular Disease; Emergency Provider Family Medicine; PCP Internal Medicine; Visit Provider Internal Medicine Cardiovascular Disease
DX: I51.81 Takotsubo syndrome (principal); I50.20 Unspecified systolic (congestive) heart failure; M32.9 Systemic lupus erythematosus, unspecified; I25.2 Old myocardial infarction; Z82.49 Family history of ischemic heart disease and other diseases of the circulatory system
CPT/HCPCS: 36415; 71045; 80048; 80053; 82550; 84484; 85025; 93005; 96374; 96375; 99285; G0378; J2270; J2405; J3490

== ENCOUNTER 2021-07-20 12:00 | Outpatient (CLI) | payer OTHER, SELFPAY | END 2021-07-20 12:01 | disposition home or self-care (01) | LOC: SLEEP 07-21 13:38 | PROVIDERS: PCP Internal Medicine; Visit Provider Internal Medicine | DX: G47.10 Hypersomnia, unspecified (principal) | CPT/HCPCS: G0399 ==

== ENCOUNTER → 2021-10-07 13:02 | Outpatient (BNVA) | payer OTHER, SELFPAY | PROVIDERS: PCP Internal Medicine; Visit Provider Internal Medicine | DX: M32.9 Systemic lupus erythematosus, unspecified (principal); I50.20 Unspecified systolic (congestive) heart failure; Z79.899 Other long term (current) drug therapy; I51.81 Takotsubo syndrome; D72.819 Decreased white blood cell count, unspecified | CPT/HCPCS: 99214 ==

== ENCOUNTER 2022-02-08 07:49 | Outpatient (CLI) | payer OTHER, SELFPAY ==
--- NOTE | 2022-02-08 07:55 | MM_ITS ---
WS: [id number] BILATERAL 3D TOMOSYNTHESIS DIGITAL SCREENING MAMMOGRAPHY WITH CAD CLINICAL INFORMATION: SCREENING HISTORY: Screening mammogram. No current complaints. COMPARISON: February 06, 2021 TECHNIQUE: Bilateral CC and MLO views. FINDINGS: The breasts are composed of heterogeneous fibroglandular density tissue, which can limit the detectio n of small underlying mass lesions. Vascular calcification. A few incidental punctate calcifications. No suspicious mass, asymmetry, calcifications, or architectural distortion. No evidence of malignanc y. MM/[place] [id number] IMPRESSION: BI-RADS: 2-Benign FOLLOW UP: 1 Year Follow-up Recommend return to annual screening mammography.
== END 2022-02-08 07:50 | disposition home or self-care (01) ==
LOC: RADSHAW 07:50
PROVIDERS: PCP Internal Medicine; Visit Provider Internal Medicine
DX: Z12.31 Encounter for screening mammogram for malignant neoplasm of breast (principal)
CPT/HCPCS: 77063; 77067

== ENCOUNTER 2023-02-10 07:50 | Outpatient (CLI) | payer OTHER, SELFPAY ==
--- NOTE | 2023-02-10 07:57 | MM_ITS ---
WS: [id number] BILATERAL SCREENING DIGITAL TOMOSYNTHESIS MAMMOGRAM WITH CAD HISTORY: SCREENING COMPARISON: 02/08/2022 and 02/06/2021 Bilateral CC and MLO views with tomosynthesis and synthetic mammography submitted. Computer aided det ection analyzed. Breast composition: There are scattered areas of fibroglandular density. No suspicious masses, microc alcifications or architectural distortion. MM/[place] [id number] IMPRESSION: BI-RADS: 1-Negative FOLLOW UP: 1 Year Follow-up
== END 2023-02-10 07:51 | disposition home or self-care (01) ==
PROVIDERS: PCP Internal Medicine; Visit Provider Internal Medicine
DX: Z12.31 Encounter for screening mammogram for malignant neoplasm of breast (principal)
CPT/HCPCS: 77063; 77067

== ENCOUNTER 2024-01-09 13:04 | Outpatient (CLI) | payer OTHER, SELFPAY ==
--- NOTE | 2024-01-09 13:31 | XR_ITS ---
WS: [id number] DEXA (DUAL ENERGY X-RAY ABSORPTIOMETRY) Bone mineral density was performed using a [employer] machine. HISTORY: Asymptomatic postmenopausal COMPARISON: 01/01/2020 Lumbar spine BMD (L1-L4): 1.028 g/cm2 T score: -1.3 Z score: 0.0 Total hip BMD: Left: 0.844 g/cm2. T score: -1.3 Z score: -0.3 Right: 0.723 g/cm2. T score: -2.3 Z score: -1.3 10 year probability of a major osteoporotic fracture is 9.5%. Compared to the prior study from 01/01/2020. Lumbar spine bone mineral density has decreased by 3.5%. Bilateral hips bone mineral density has decreased by 4.0%. IMPRESSION: OSTEOPENIA based upon the WHO classification for females. Significant decrease in bone mineral density within the lumbar spine and hips since the prior study.
== END 2024-01-09 13:05 | disposition home or self-care (01) ==
LOC: RAD 13:05
PROVIDERS: PCP Internal Medicine; Visit Provider Internal Medicine
DX: Z78.0 Asymptomatic menopausal state (principal); M85.80 Other specified disorders of bone density and structure, unspecified site
CPT/HCPCS: 77080

== ENCOUNTER 2024-02-17 07:50 | Outpatient (CLI) | payer OTHER, SELFPAY ==
--- NOTE | 2024-02-17 08:03 | MM_ITS ---
WS: [id number] BILATERAL SCREENING DIGITAL TOMOSYNTHESIS MAMMOGRAM WITH CAD HISTORY: SCREENING COMPARISON: 02/10/2023, 02/08/2022, 01/02/2020 Bilateral CC and MLO views with tomosynthesis and synthetic mammography submitted. Computer aided det ection analyzed. Breast composition: There are scattered areas of fibroglandular density. No suspicious masses, microc alcifications or architectural distortion. A few scattered benign calcifications and breast arterial calcifications. IMPRESSION: MM/[place] [id number] BI-RADS: 2-Benign FOLLOW UP: 1 Year Follow-up
== END 2024-02-17 07:51 | disposition home or self-care (01) ==
LOC: RAD 07:50
PROVIDERS: PCP Internal Medicine; Visit Provider Internal Medicine
DX: Z12.31 Encounter for screening mammogram for malignant neoplasm of breast (principal)
CPT/HCPCS: 77063; 77067

== ENCOUNTER 2025-02-18 07:52 | Outpatient (CLI) | payer OTHER, SELFPAY ==
--- NOTE | 2025-02-18 07:56 | MM_ITS ---
WS: [id number] BILATERAL SCREENING DIGITAL TOMOSYNTHESIS MAMMOGRAM WITH CAD HISTORY: SCREENING COMPARISON: 02/17/2024, 02/10/2023 Bilateral CC and MLO views with tomosynthesis and synthetic mammography submitted. Computer aided detection analyzed. Breast composition: There are scattered areas of fibroglandular density. No suspicious masses, microcalcifications or architectural distortion. Benign calcification LEFT breast. MM/MM scr BI tomosynthesis [id number] IMPRESSION: BI-RADS: 2 - Benign. FOLLOW UP: 1 Year Follow-up
== END 2025-02-18 07:53 | disposition home or self-care (01) ==
PROVIDERS: PCP Internal Medicine; Visit Provider Internal Medicine
DX: Z12.31 Encounter for screening mammogram for malignant neoplasm of breast (principal); R92.323 Mammographic fibroglandular density, bilateral breasts; R92.1 Mammographic calcification found on diagnostic imaging of breast
CPT/HCPCS: 77063; 77067